=== PATIENT | female | born 1935 | race Caucasian/White ===

== ENCOUNTER 2022-10-19 12:46 | Outpatient (OUT) | payer MEDICARE, SELFPAY ==
--- NOTE | 2022-10-19 13:08 | PM.CN ---
Consult Note: HPI Data of Consult Patient: known to practice within the last 3 years Consult date: 10/19/22 Requesting Physician: MARLINE PRADO NP Primary Care Provider: Milvia Haas Consult Narrative Reason for consult: low back pain Narrative: Izabela is here for f/u of right LCIH injection done 09/26/22. She recieved 100% relief of pain with increased function for several hours after procedure. She would not like to proceed with the RFA of same area at this time. Questions answered regarding RFA procedure. She would like to think about the procedure. No new sensorimotor or bowel or bladder issues. No radicular sx. cc:: CC: MARLINE PRADO NP Review of Systems ROS Status of ROS 10 or more systems reviewed and unremarkable except as noted in history and below Meds Home Medications and Allergies Allergies Allergy/AdvReac Type Severity Reaction Status Date / Time Penicillins Allergy Mild Hives Verified 10/19/22 13:17 Exam Constitutional: Common normals: no apparent distress, average body habitus, oriented x3, no limitations, healthy appearing, alert and well nourished General appearance: cooperative, comfortable and well developed Orientation/consciousness: Yes awake, Yes oriented to person, Yes oriented to place and Yes oriented to time HENMT: Common normals: normocephalic and head/scalp atraumatic Nose: external nose normal Mouth: oral and palatal mucosa normal Respiratory: Common normals: normal respiratory effort, no retractions and no use of accessory muscles Effort & inspection: able to speak in complete sentences Back & Pelvis: Lumbar spine/lower back: normal to inspection, pain with ROM, paraspinal muscle tenderness, straight leg raise negative bilaterally and other soft tissue findings (positive mao right, positive thigh thrust right) Other lumbar soft tissue findings laterality: right Skin: Common normals: no rashes or lesions noted Assessment and Plan Assessment and Plan (1) Neuritis: (2) Muscle spasm: Plan oxycodone refill. She has narcan at home. She may call to schedule right LCIH RFA
== END 2022-10-19 12:47 ==
PROVIDERS: PCP Nurse Practitioner; Visit Provider Nurse Practitioner
DX: M79.2 Neuralgia and neuritis, unspecified (principal); M62.838 Other muscle spasm
CPT/HCPCS: G0463

== ENCOUNTER 2022-12-01 11:47 | Outpatient (OUT) | payer MEDICARE, SELFPAY ==
--- NOTE | 2022-12-01 12:09 | PM.CN ---
Consult Note: HPI Data of Consult Patient: known to practice within the last 3 years Consult date: 12/01/22 Requesting Physician: MARLINE PRADO NP Primary Care Provider: Milvia Haas Consult Narrative Narrative: Patient is here for f/u of low back pain . Hx of LCIH nerve block with significant relief. She cancelled RFA procedure. She states she does not want to go through with RFA at this time. Pain today is lower back worse with standing, ROM . No radiculopathy. No new sensorimotor or bowel or bladder issues. No adverse medication SE. Medication regimen assists patient with being better able to complete ADLs. cc:: CC: MARLINE PRADO NP Review of Systems ROS Status of ROS 10 or more systems reviewed and unremarkable except as noted in history and below Musculoskeletal Reports: back pain Meds Home Medications and Allergies Home Medications Medication Instructions Recorded Confirmed Type alendronate 70 mg tablet 70 mg PO QWEEK 10/19/22 10/19/22 History baclofen 10 mg tablet 10 mg PO QDAY 10/19/22 10/19/22 History calcium carbonate 500 mg calcium 500 mg PO QDAY 10/19/22 10/19/22 History (1,250 mg) chewable tablet cyanocobalamin (vitamin B-12) 1,000 mcg PO QDAY 10/19/22 10/19/22 History 1,000 mcg capsule gabapentin 300 mg capsule 300 mg PO BID 10/19/22 10/19/22 History levothyroxine 50 mcg tablet 50 mcg PO QDAY 10/19/22 10/19/22 History multivitamin 1 tab PO QDAY 10/19/22 10/19/22 History omeprazole 40 mg capsule,delayed 40 mg PO QDAY 10/19/22 10/19/22 History release oxycodone 5 mg tablet 5 mg PO TID 10/19/22 10/19/22 History pravastatin 20 mg tablet 20 mg PO QDAY 10/19/22 10/19/22 History Allergies Allergy/AdvReac Type Severity Reaction Status Date / Time Penicillins Allergy Mild Hives Verified 10/19/22 13:17 Exam Constitutional Documenting provider has reviewed patient's vital signs: yes Common normals: no apparent distress, average body habitus and oriented x3 General appearance: cooperative, comfortable, well developed and frail appearing Orientation/consciousness: Yes awake, Yes oriented to person, Yes oriented to place and Yes oriented to time HENMT Common normals: normocephalic and moist oral mucous membranes Respiratory Common normals: normal respiratory effort, no retractions and no use of accessory muscles Effort & inspection: able to speak in complete sentences and symmetric chest movement Back & Pelvis Common normals: straight leg raise negative bilaterally Lumbar spine/lower back: ROM limited, pain with ROM, paraspinal muscle tenderness, paraspinal muscle spasm and lumbar scoliosis present Other: kyphosis muscle strength 4/5 bilat with intact sensation bilat LE positive facet loading Assessment and Plan Assessment and Plan (1) Muscle spasm: (2) Neuritis: (3) Lumbar spondylosis: Plan refill oxycodone f/u 3 months
== END 2022-12-01 11:48 | disposition home or self-care (01) ==
LOC: PM 11:49
PROVIDERS: PCP Nurse Practitioner; Visit Provider Nurse Practitioner
DX: M62.838 Other muscle spasm (principal); M79.2 Neuralgia and neuritis, unspecified; M47.816 Spondylosis without myelopathy or radiculopathy, lumbar region
CPT/HCPCS: G0463

== ENCOUNTER 2023-03-08 10:47 | Outpatient (OUT) | payer MEDICARE, SELFPAY ==
--- NOTE | 2023-03-08 11:43 | PM.CN ---
Consult Note: HPI Data of Consult Patient: known to practice within the last 3 years Requesting Physician: MARLINE PRADO NP Primary Care Provider: Milvia Haas Consult Narrative Reason for consult: F/u Narrative: Izabela Díaz a 87 year old female presents for evaluation and management of chronic back and bialteral hip pain. Today rating pain 10/10. Patient reports benefit to current medication regimen, she continues to be active as a result of opioid therapy. Denies side effects. cc:: CC: MARLINE PRADO NP Review of Systems ROS Status of ROS 10 or more systems reviewed and unremarkable except as noted in history and below Musculoskeletal Reports: back pain Meds Home Medications and Allergies Home Medications Medication Instructions Recorded Confirmed Type alendronate 70 mg tablet 70 mg PO QWEEK 10/19/22 10/19/22 History baclofen 10 mg tablet 10 mg PO QDAY 10/19/22 10/19/22 History calcium carbonate 500 mg calcium 500 mg PO QDAY 10/19/22 10/19/22 History (1,250 mg) chewable tablet cyanocobalamin (vitamin B-12) 1,000 mcg PO QDAY 10/19/22 10/19/22 History 1,000 mcg capsule gabapentin 300 mg capsule 300 mg PO BID 10/19/22 10/19/22 History levothyroxine 50 mcg tablet 50 mcg PO QDAY 10/19/22 10/19/22 History multivitamin 1 tab PO QDAY 10/19/22 10/19/22 History omeprazole 40 mg capsule,delayed 40 mg PO QDAY 10/19/22 10/19/22 History release oxycodone 5 mg tablet 5 mg PO TID 10/19/22 10/19/22 History pravastatin 20 mg tablet 20 mg PO QDAY 10/19/22 10/19/22 History oxycodone 5 mg tablet 5 mg PO TID PRN pain #90 tabs 01/17/23 Rx oxycodone 5 mg capsule 5 mg PO TID PRN pain #90 caps 03/08/23 Rx Allergies Allergy/AdvReac Type Severity Reaction Status Date / Time Penicillins Allergy Mild Hives Verified 10/19/22 13:17 Exam Constitutional Documenting provider has reviewed patient's vital signs: yes (BP elevated without symptoms) Common normals: no apparent distress, oriented x3, healthy appearing, alert and well nourished General appearance: cooperative HENMT Common normals: normocephalic, hearing grossly normal bilaterally and moist oral mucous membranes Head and scalp: normocephalic Eye Common normals: PERRL Pupil: PERRL Neck & C-Spine Common normals: full ROM General: normal visual inspection Chest Common normals: inspection of chest normal Respiratory Common normals: normal respiratory effort, no retractions and no use of accessory muscles Back & Pelvis Thoracic spine/upper back: ROM limited, pain with ROM and kyphosis present Lumbar spine/lower back: ROM limited and pain with ROM Extremity Common normals: normal to inspection and full ROM Neuro Common normals: oriented x3, CN's II-XII intact bilaterally, moves all extremities, no focal motor deficits, no sensory deficits noted and deep tendon reflexes 2+ bilaterally Sensorium/orientation: alert Gait (neuro): antalgic Motor exam: strength 5/5 throughout and no movement abnormalities noted Psych Common normals: mental status grossly normal, thought process normal, cooperative, affect normal, speech normal and activity/motor behavior normal Speech: normal speech Thought process: normal thought process Results Additional Findings Additional findings: I have checked an [facility] report on this patient today and there are no aberrancies noted in the prescribing history.?? A drug screen was completed and reviewed within the last year, and if there has not been a drug screen completed we ordered one today to monitor higher risk, state monitored pain medication use. As part of providing excellent, safe, comprehensive care, the following was completed at our patient's visit: 1. A medication reconciliation and review to ensure accurate knowledge of current/active medications, including asking our patients to inform us about any [id number] medications or herbal remedies/nutritional supplements/alternative remedies. 2. A review to specifically ensure our patients have had annual screening for: elevated body mass index (BMI), tobacco use, screening for depression, and screening for unhealthy alcohol use. When screening is concerning, patients are provided with education and the specific recommendation to discuss the concerning health issue and treatment options with their primary care provider. Assessment and Plan Assessment and Plan (1) Lumbar spondylosis: (2) Low back pain: (3) Degenerative disc disease: (4) Muscle spasm: (5) Chronic prescription opiate use: Assessment and Plan: I feel these medications are improving the patient's quality of life and allow them to tolerate activities of daily living as well as participate in recreational activity.? The patient does not report intolerable side effects. The patient is NOT opioid naive and non-pharmacologic and non-opioid treatment has failed to significantly relieve the patient's pain and improve functionality. The patient has a diagnosis that is related to a somatic or visceral pain etiology. ? ?? I reviewed with the patient the potential risks and side effects with the use of? opioid medications including but not limited to respiratory depression,? sedation, and even . I verified the patient has access to naloxone should? these effects occur. I advised the patient to avoid the use of any other? sedation substances including alcohol, THC, and benzodiazepines while? taking opioid medications due to the risk of compounding side effects and? detrimental outcomes. I reviewed the HUMAN RESOURCES BENEFITS MANAGER, pain treatment agreement, urine? drug screen, and opioid start talking forms. The patient was advised to let? their family know they had Naloxone in case they would need to administer? the medication.? ?? Plan declining additional injection therapy increase oxycodone 5 to TID-QID PRN 105 tablets per month UDS updated today narcan previously discussed and declined, pt educated on discussed bracing, zynex lumbosacral orthotic brace ordered for chronic low back pain and degenerative disc disease f/u 1 month to evaluate medication changes and bracing
== END 2023-03-08 10:48 | disposition home or self-care (01) ==
PROVIDERS: PCP Nurse Practitioner; Visit Provider Nurse Practitioner
DX: M47.896 Other spondylosis, lumbar region (principal); M54.50 Low back pain, unspecified; M51.36 Other intervertebral disc degeneration, lumbar region; R25.2 Cramp and spasm
CPT/HCPCS: G0463

== ENCOUNTER 2023-04-05 11:10 | Outpatient (OUT) | payer MEDICARE, SELFPAY ==
--- NOTE | 2023-04-05 11:27 | P.CN_ITS ---
Consult Note: HPI Data of Consult Patient: known to practice within the last 3 years Requesting Physician: Pau Salazar NP Primary Care Provider: Milvia Haas Consult Narrative Reason for consult: f/u Narrative: Izabela Díaz a pleasant 87 year old female presents for evalaution and management of chronic back pain. Today pain 10/28. Patient received zynex brace and would like to review how to use it. cc:: CC: Pau Salazar NP Review of Systems ROS Status of ROS 10 or more systems reviewed and unremarkable except as noted in history and below Musculoskeletal Reports: back pain Meds Home Medications and Allergies Home Medications Medication Instructions Recorded Confirmed Type alendronate 70 mg tablet 70 mg PO QWEEK 10/19/22 10/19/22 History baclofen 10 mg tablet 10 mg PO QDAY 10/19/22 10/19/22 History calcium carbonate 500 mg calcium 500 mg PO QDAY 10/19/22 10/19/22 History (1,250 mg) chewable tablet cyanocobalamin (vitamin B-12) 1,000 mcg PO QDAY 10/19/22 10/19/22 History 1,000 mcg capsule gabapentin 300 mg capsule 300 mg PO BID 10/19/22 10/19/22 History levothyroxine 50 mcg tablet 50 mcg PO QDAY 10/19/22 10/19/22 History multivitamin 1 tab PO QDAY 10/19/22 10/19/22 History omeprazole 40 mg capsule,delayed 40 mg PO QDAY 10/19/22 10/19/22 History release oxycodone 5 mg tablet 5 mg PO TID 10/19/22 10/19/22 History pravastatin 20 mg tablet 20 mg PO QDAY 10/19/22 10/19/22 History oxycodone 5 mg tablet 5 mg PO TID PRN pain #90 tabs 01/17/23 Rx baclofen 10 mg tablet 10 mg PO DAILY #30 tabs 03/08/23 Rx oxycodone 5 mg capsule 5 mg PO QID PRN pain #105 caps 03/08/23 Rx oxycodone 5 mg capsule 5 mg PO TID PRN pain #90 caps 03/08/23 Rx Allergies Allergy/AdvReac Type Severity Reaction Status Date / Time Penicillins Allergy Mild Hives Verified 10/19/22 13:17 Exam Constitutional Documenting provider has reviewed patient's vital signs: yes (BP elevated without symptoms) Common normals: no apparent distress, oriented x3, healthy appearing, alert and well nourished General appearance: cooperative HENMT Common normals: normocephalic, hearing grossly normal bilaterally and moist oral mucous membranes Head and scalp: normocephalic Eye Common normals: PERRL Pupil: PERRL Neck & C-Spine Common normals: full ROM General: normal visual inspection Chest Common normals: inspection of chest normal Respiratory Common normals: normal respiratory effort, no retractions and no use of accessory muscles Back & Pelvis Thoracic spine/upper back: ROM limited, pain with ROM and kyphosis present Lumbar spine/lower back: ROM limited and pain with ROM Extremity Common normals: normal to inspection and full ROM Neuro Common normals: oriented x3, CN's II-XII intact bilaterally, moves all extremities, no focal motor deficits, no sensory deficits noted and deep tendon reflexes 2+ bilaterally Sensorium/orientation: alert Gait (neuro): antalgic Motor exam: strength 5/5 throughout and no movement abnormalities noted Psych Common normals: mental status grossly normal, thought process normal, cooperative, affect normal, speech normal and activity/motor behavior normal Speech: normal speech Thought process: normal thought process Assessment and Plan Assessment and Plan (1) Lumbar spondylosis: (2) Low back pain: (3) Degenerative disc disease: (4) Muscle spasm: (5) Chronic prescription opiate use: Assessment and Plan: I feel these medications are improving the patient's quality of life and allow them to tolerate activities of daily living as well as participate in recreational activity.? The patient does not report intolerable side effects. The patient is NOT opioid naive and non-pharmacologic and non-opioid treatment has failed to significantly relieve the patient's pain and improve functionality. The patient has a diagnosis that is related to a somatic or visceral pain etiology. ? ?? I reviewed with the patient the potential risks and side effects with the use of? opioid medications including but not limited to respiratory depression,? sedation, and even . I verified the patient has access to naloxone should? these effects occur. I advised the patient to avoid the use of any other? sedation substances including alcohol, THC, and benzodiazepines while? taking opioid medications due to the risk of compounding side effects and? detrimental outcomes. I reviewed the INDUSTRIAL RENDERER, pain treatment agreement, urine? drug screen, and opioid start talking forms. The patient was advised to let? their family know they had Naloxone in case they would need to administer? the medication.? ?? Plan declining additional injection therapy continue oxycodone 5 to TID-QID PRN 105 tablets per month UDS reviewed and appropriate narcan previously discussed and declined, pt educated on continue bracing f/u 3 months for medication management
== END 2023-04-05 11:11 | disposition home or self-care (01) ==
LOC: PM 11:10
PROVIDERS: PCP Nurse Practitioner; Visit Provider Nurse Practitioner
DX: M47.816 Spondylosis without myelopathy or radiculopathy, lumbar region (principal); M54.50 Low back pain, unspecified; M51.36 Other intervertebral disc degeneration, lumbar region; M62.838 Other muscle spasm; Z79.891 Long term (current) use of opiate analgesic
CPT/HCPCS: G0463

== ENCOUNTER 2023-07-05 11:33 | Outpatient (OUT) | payer MEDICARE, SELFPAY ==
--- OUTSIDE RECORDS SUMMARY | 2023-07-05 11:41 | XMS_ITS | CCD ---
Author Name Unknown Address [address] [place] [address] Organization [facility] Care Team Providers Care Director Of Medical Review Name Role Phone Mohsen Jones Primary Care Provider [phone] SELMA MIRANDA Referring Unavailable MOHSEN JONES Primary Care Unavailabl e LUCYEREMOHSEN Faith Primary Care Unavailabl e CARIDAD PRINGLE Attending Unavailable MENENDEZ, COLE Attending Unavailable MENENDEZCOLE Admitting Unavailable CARIDAD PRINGLE Referring Unavailable MOHSEN JONES Primary Care Unavailabl e HETAL, ABED E Consulting Unavailable MOHSEN JONES Primary Care Unavailabl e HETAL, ABED E Attending Unavailable HETAL, ABED E Admitting Unavailable Jewel Rodriguez Unavailable NON STAFF Primary Care Provider Unavailabl e DO Jewel Rodriguez A Attending Provider [phone] NON STAFF Primary Care Provider Unavailabl e DO Jewel Rodriguez A Attending Provider Jewel Rodriguez A Admitting Unavailable NON STAFF Primary Care Unavailable Harley Rodriguezin A Attending Unavailable Harley Rodriguezin A Attending Unavailable NON STAFF Primary Care Unavailable Jennifer Jewel A Admitting Unavailable Jennifer Jewel A Attending Unavailable NON STAFF Primary Care Unavailable Jennifer Jewel A Admitting Unavailable Harley Rodriguezin A Attending Unavailable Harley Rodriguezin A Admitting Unavailable NON STAFF Primary Care Unavailable Jeaneth Crowe Consulting Unavailable Stanislav Mathews Admitting Unavailable Deep Smith Attending Unavailable Harley Rodriguezin A Admitting Unavailable NON STAFF Primary Care Unavailable Jewel Rodriguez A Attending Unavailable DR TAM CORREA Attending Unavailable DR TAM CORREA Admitting Unavailable FUENTES ., TYLER Consulting Unavailable [facility], SURGERY MANAGER [place] Primary Care Unavailable [facility], [facility] [place] Primary Care Unavailable LAKSHMIPATHY ., NARENDRANATH Attending Lelo vailable LAKSHMIPATHY ., NARENDRANATH Consulting Lelo vailable LAKSHMIPATHY ., NARENDRANATH Admitting Lelo vailable [facility], [facility] [place] Primary Care Unavailable HAYLEY ., DR TAM Candelaria Attending Unavailable FUENTES ., TYLER Consulting Unavailable PERDOMO ., DR TAM Candelaria Admitting Unavailable HALKER ., MARLINE Consulting Unavailable PERDOMO ., DR TAM Candelaria Attending Unavailable PERDOMO ., DR TAM Candelaria Consulting Unavailable [facility], [facility] [place] Primary Care Unavailable PERDOMO ., DR TAM Candelaria Admitting Unavailable FUENTES ., TYLER Consulting Unavailable PERDOMO ., DR TAM Candelaria Attending Unavailable PERDOMO ., DR TAM Candelaria Admitting Unavailable FUENTES ., TYLER Consulting Unavailable [facility], [facility] Primary Care Unavailable [facility], [facility] Attending Unavailable [facility] SHOP COOPER, [place] Unavailable Darrius KENNEDY, Mohsen Primary Care Provider [phone] Allergies Allergy Classification Reported Allergen(s) Allergy Type Date of Onset Reaction(s) Facility (7 sources) Penicillins Propensity to adverse reactions to drug 0 [place], [place] (5 sources) penicillAMINE Drug Allergy [facility] Tang Song Other (1 source) Penicillins Drug allergy (disorder) 2 [facility] (1 source) Penicillins Drug allergy (disorder) 3 [facility] (2 sources) Acetaminophen Drug Allergy 4 [facility] Healthcare (2 sources) oxyCODONE Drug Allergy 4 Unknown [facility] Healthcare Work Phone: (2 sources) Penicillins Propensity to adverse reactions 4 [facility] Healthcare Medications Current Medications Medication Drug Class(es) Dates Sig (Normalized) Sig (Original) acetaminophen 500 mg oral tablet (4 sources) Start: 09-27-2021 take 2 tablets by mouth every eight hours Acetaminophen (Tylenol Extra Strength) 500 mg tablet Active 1000 MG PO Every 8 hours 180 30 September 262 11:00pm Start: 03-23-2020 take 650 mg by mouth every eight hours as needed for pain, then take 4000 mg by mouth every twenty-four hours as needed for pain 650 mg, Oral, EVERY 8 HOURS PRN, Pain Mild (1-3), Starting Sun03/23/20 at 1927 Maximum dose of acetaminophen is 4000 mg from all sources in 24 hours. Start: 02-27-2020 acetaminophen (TYLENOL) tablet 650 mg acetaminophen 325 mg / HYDROcodone bitartrate 5 mg oral tablet (3 sources) Opioid Agonist Start: 03-23-2020 End: 03-26-2020 take 1 tablet by mouth every six hours as needed for pain 1 tablet, Oral, EVERY 6 HOURS PRN, Pain Moderate (4-6), Pain Severe (7-10), Starting Sun03/23/20 at 1927 Maximum dose of acetaminophen is 4000 mg from all sources in 24 hours. 200 actuat albuterol 0.09 mg/actuat metered dose inhaler (6 sources) beta2-Adrenerg ic Agonist Start: 03-23-2020 take 2 puff(s) by inhalation every six hours as needed 2 puff, Inhalation, EVERY 6 HOURS PRN, Wheezing, Starting Sun03/23/20 at 1927 This is an Observation patient. Please see if the patient can bring their home supply. Please send down to pharmacy for identification. take 2 puff(s) by in halation every four hours for wheezing albuterol HFA 90 mcg/act inhaler Inhale 2 puffs every 4 (four) hours if needed for wheezing 0 Active alendronic acid 70 mg oral tablet (14 sources) Bisphosphonate Start: 06-11-2023 End: 07-09-2023 take 1 tablet by mouth in the morning alendronate (Fosamax) 70 MG tablet Indications: Age related osteoporosis, unspecified pathological fracture presence (CMS/HCC) Take 1 tablet (70 mg) by mouth every 7 (seven) days for 28 days Take in the morning with a full glass of water, on an empty stomach, and do not take anything else by mouth or lie down for the next 30 min.Take 70 mg by mouth every 7 (seven) days Take in the morning with a fu 4 tablet 0 06/11/2023 07/09/2023 Active Start: 09-26-2021 take 70 mg by mouth every week Alendronate Active 70 MG PO every week September 25, 2021 11:00pm Fosamax 40 MG as directed Orally Active alendronate (FOS AMAX) 70 MG tablet Take 70 mg by mouth every 7 days 0 Active amitriptyline hydrochloride 25 mg oral tablet (9 sources) Tricyclic Antidepressant Start: 07-02-2023 End: 09-30-2023 take 1 tablet by mouth at bedtime amitriptyline (Elavil) 25 MG tablet Indications: Other chronic pain Take 1 tablet (25 mg) by mouth at bedtime 90 tablet 1 07/02/2023 09/30/2023 Active Start: 09-26-2021 End: 07-02-2023 take 25 mg by mouth once daily at bedtime Amitriptyline Active 25 MG PO Daily at bedtime September 25, 2021 11:00pm Start: 03-23-2020 take 25 mg by mouth once daily 25 mg, Oral, NIGHTLY, First dose on Sun03/23/20 at 2100 This is an Observation patient. Please see if the patient can bring their home supply. Please send down to pharmacy for identification. ascorbic acid 60 mg / beta carotene 5000 unt / copper sulfate 40 mg / dl-alpha tocopheryl acetate 30 unt / sodium selenite 0.04 mg / zinc oxide 40 mg oral tablet (3 sources) Vitamin C take 1 tablet by mouth once daily Multiple Vitamins-Minerals (MULTIVITAMIN ADULT) TABS Take 1 tablet by mouth daily 0 Active b complex vitamins capsule (5 sources) take 1 capsule by mouth once daily b complex vitamins capsule Take 1 capsule by mouth daily 0 Suspended take 1 capsule by mouth once shravan ly b complex vitamins capsule Take 1 capsule by mouth daily 0 Active baclofen 10 mg oral tablet (10 sources) gamma-Aminobutyric Acid-ergic Agonist Start: 03-23-2020 take 10 mg by mouth once daily at bedtime Baclofen Active 10 MG PO Daily at bedtime September 25, 2021 11:00pm calcium carbonate 1500 mg oral tablet (5 sources) take 1 tablet by mouth once daily calcium carbonate 600 MG TABS tablet Take 1 tablet by mouth daily 0 Active 0.4 ml enoxaparin sodium 100 mg/ml prefilled syringe (1 source) Low Molecular Weight Heparin Start: 02-27-2020 enoxaparin (LOVENOX) injection 40 mg gabapentin 300 mg oral capsule (10 sources) Anti-epileptic Agent Start: 06-01-2023 End: 07-01-2023 take 1 capsule by mouth in the morning gabapentin (Neurontin) 300 MG capsule Indications: chronic pain Take 1 capsule (300 mg) by mouth in the morning and 1 capsule (300 mg) before bedtime. 60 capsule 0 06/01/2023 Active Start: 09-26-2021 take 300 mg by mouth twice shravan ly Gabapentin Active 300 MG PO Twice daily September 25, 2021 11:00pm Start: 03-23-2020 take 300 mg by mouth once sidra y 300 mg, Oral, NIGHTLY, First dose on Sun03/23/20 at 2100 This is an Observation patient. Please see if the patient can bring their home supply. Please send down to pharmacy for identification. take 1 capsule by [facility] twice daily gabapentin (NEURONTIN) 300 MG capsule Take 300 mg by mouth 2 times daily. 0 Active levothyroxine sodium 0.05 mg oral tablet (16 sources) l-Thyroxine Start: 06-08-2023 End: 07-08-2023 take 1 tablet by mouth in the morning levothyroxine (Synthroid, Levoxyl) 50 MCG tablet Indications: Hypothyroidism (acquired) (CMS/HCC) Take 1 tablet (50 mcg) by mouth in the morning. 30 tablet 0 06/08/2023 07/08/2023 Active Start: 09-26-2021 take 50 ug by mouth once daily Levothyroxine Active 50 MCG PO Daily September 25, 2021 11:00pm Start: 02-27-2020 take 50 ug by mouth once daily 50 mcg, Oral, DAILY, First dose on Sun03/24/20 at 0700 Tube feeding (TF) interaction, obtain physician order to manage, recommend holding TF for 30 minutes before and after dose.This is an Observation patient. Please see if the patient can bring their home supply. Please send down to pharmacy for identification. Synthroid Active loratadine 10 mg oral tablet (8 sources) Start: 03-23-2020 take 10 mg by mouth once daily Loratadine Active 10 MG PO Daily September 25, 2021 11:00pm 100 ml magnesium sulfate 10 mg/ml injection (1 source) Start: 02-27-2020 magnesium sulf ate 1 g in dextrose 5% 100 mL IVPB meloxicam 15 mg oral tablet (11 sources) Nonsteroidal Anti-inflammatory Drug Start: 09-26-2021 take 15 mg by mouth once daily Meloxicam Active 15 MG PO Daily September 25, 2021 11:00pm Start: 03-23-2020 take 15 mg by mouth once daily 15 mg, Oral, DAILY, First dose on Sun03/23/20 at 1945 This is an Observation patient. Please see if the patient can bring their home supply. Please send down to pharmacy for identification. Meloxicam Active take 1 tablet by savanna once daily meloxicam (MOBIC) 15 MG tablet Take 1 tablet by mouth daily 0 Active Meloxicam 15 MG TBDP (2 sources) Meloxicam 15 MG TBDP Take by mouth 3 times daily 0 Active Misc. Devices (SITZ BATH) MISC (2 sources) Start: 03-23-20 End: 03-28-20 take 1 [IU] rectal route twice daily Misc. Devices (SITZ BATH) MISC Place 1 Units rectally 2 times daily for 5 days 10 each 1 03/23/2020 03/28/2020 Active 1 ml morphine sulfate 4 mg/ml injection (1 source) Opioid Agonist Start: 02-27-20 morphine sulfate (PF) injection 4 mg Multiple Vitamins-Minerals (MULTIVITAMIN ADULT PO) (2 sources) Multiple Vitamins-Minerals (MULTIVITAMIN ADULT PO) Take by mouth 0 Active 24 hr nicotine 0.875 mg/hr transdermal system (1 source) Cholinergic Nicotinic Agonist Start: 02-27-20 nicotine (NICODERM CQ) 21 MG/24HR 1 patch omeprazole 40 mg delayed release oral capsule (7 sources) Proton Pump Inhibitor Start: 05-10-20 End: 08-08-19 24 take 1 capsule by mouth in the morning omeprazole (PriLOSEC) [address] capsule Indications: Gastroesophageal reflux disease without esophagitis Take 1 capsule (40 mg) by mouth in the morning. 90 capsule 0 05/10/2023 08/08/2023 Active Start: 09-26-2021 take 40 mg by mouth once daily Omeprazole Active 40 MG PO Daily September 25, 2021 11:00pm End: 02-27-2020 take 1 capsule by mouth once daily omeprazole (PRILOSEC) 40 MG delayed release capsule Take 40 mg by mouth daily 0 02/27/2020 Discontinued (Alternate therapy) ondansetron (ZOFRAN-ODT) disintegrating tablet 4 mg (1 source) Start: 03-23-2020 ondansetron (ZOFRAN-ODT) disintegrating tablet 4 mg oxyCODONE hydrochloride 5 mg oral tablet (12 sources) Opioid Agonist Start: 09-27-2021 take 1 tablet by mouth every six hours Oxycodone (Roxicodone) 5 mg tablet Active 5 MG PO Q6H 30 7 September 27, 2021 Start: 09-26-2021 End: 09-30-2021 take 50 mg by mouth three times daily Oxycodone Discontinued 50 MG PO Three times daily September 25, 2021 11:00pm September 30, 2021 1:37pm End: 02-28-2020 take 1 tablet by mouth twice daily as needed for pain oxyCODONE (ROXICODONE) 5 MG immediate release tablet Take 5 mg by mouth 2 times daily as needed for Pain. 0 02/28/2020 Discontinued (Stop Taking at Discharge) take 1 capsule by mo uth three times daily oxyCODONE 5 MG capsule Take 5 mg by mouth 3 times daily. 0 Active pantoprazole 40 mg delayed release oral tablet (5 sources) Proton Pump Inhibitor Start: 02-28-2020 take 40 mg by mouth once daily 40 mg, Oral, DAILY, First dose on Sun03/23/20 at 1945 Do not crush or break.This is an Observation patient. Please see if the patient can bring their home supply. Please send down to pharmacy for identification. Potassium Chloride (1 source) Start: 02-27-2020 potassium chloride (KLOR-CON M) extended release tablet 40 mEq pravastatin sodium 40 mg oral tablet (11 sources) HMG-CoA Reductase Inhibitor Start: 05-01-2023 End: 07-30-2023 take 1 tablet by mouth at bedtime pravastatin (Pravachol) 40 MG tablet Indications: Hyperlipidemia Take 1 tablet (40 mg) by mouth at bedtime 90 tablet 0 05/01/2023 07/30/2023 Active Start: 09-26-2021 take 40 mg by mouth once daily Pravastatin Active 40 MG PO Daily September 25, 2021 11:00pm Start: 02-27-2020 take 40 mg by mouth once daily 40 mg, Oral, NIGHTLY, First dose on Sun03/23/20 at 2100 This is an Observation patient. Please see if the patient can bring their home supply. Please send down to pharmacy for identification. take 1 tablet by savanna th once daily pravastatin (PRAVACHOL) 20 MG tablet Take 20 mg by mouth nightly 0 Active Promethazine (1 source) Phenothiazine Start: 02-27-2020 promethazine ( PHENERGAN) tablet 12.5 mg 3 ml sodium chloride 9 mg/ml injection (8 sources) Start: 03-23-2020 10 mL, Intrave nous, EVERY 12 HOURS SCHEDULED (2 times per day), First dose on Sun03/23/20 at 2100 Start: 03-23-2020 take 10 mL intraveno us route once as needed 10 mL, Intravenous, PRN, Line Care, After every IV line use, Starting Sun03/23/20 at 1927 Start: 02-27-2020 sodium chlorid e flush 0.9 % injection 10 mL Start: 02-27-2020 End: 02-27-2020 0.9 % sodium chloride bolus vitamin b12 1 mg oral tablet (7 sources) Vitamin B12 take 1 tablet by mouth in the morning cyanocobalamin (Vitamin B-12) 1000 MCG tablet Take 1,000 mcg by mouth in the morning. 0 Active Completed/Discontinued Medications Medication Drug Class(es) Dates Sig (Normalized) Sig (Original) 500 ml glucose 50 mg/ml / potassium chloride 0.02 meq/ml / sodium chloride 4.5 mg/ml injection (1 source) Start: 02-27-2020 End: 02-28-2020 dextrose 5 % and 0.45 % NaCl with KCl 20 mEq infusion 1 ml HYDROmorphone hydrochloride 2 mg/ml cartridge (1 source) Opioid Agonist Start: 03-23-2020 End: 03-23-2020 HYDROmorphone (DILAUDID) injection 0.5 mg ioversol (OPTIRAY) 74 % injection 75 mL (2 sources) Start: 02-27-2020 End: 02-27-2020 ioversol (OPTIRAY) 74 % injection 75 mL polyethylene glycol 3350 07896 mg powder for oral solution (1 source) Osmotic Laxative Start: 02-27-2020 End: 02-27-2020 polyethylene glycol (GLYCOLAX) powder 238 g Problems Active Problems Problem Classification Problem Date Documented Da te Episodic/Chronic Abdominal hernia (2 sources) Hiatal hernia; Translations: [Diaphragmatic hernia without obstruction or gangrene] Onset: 4 06-18-2023 Episodic Allergic reactions (2 sources) Allergic condition; Translations: [Allergy, unspecified, initial encounter] Onset: 4 06-28-2023 Episodic Asthma (2 sources) Reactive airway disease; Translations: [Unspecified asthma, uncomplicated] Onset: 4 06-28-2023 Chronic Cancer of ovary (2 sources) Malignant tumor of ovary; 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] Onset: 8 06-28-2023 Chronic Cataract (2 sources) Cataract; Translations: [Unspecified cataract] Onset: 4 06-28-2023 Chronic Conditions associated with dizziness or vertigo (7 sources) Dizziness and giddiness; Translations: [Dizziness] Onset: 2 Resolved: 2 Episodic Disorders of lipid metabolism (4 sources) Mixed hyperlipidemia; Translations: [Mixed hyperlipidemia] Onset: 3 Resolved: 4 04-30-2023 Chronic Esophageal disorders (2 sources) Gastroesophageal reflux disease without esophagitis; Translations: [Gastro-esophageal reflux disease without esophagitis] Onset: 3 04-30-2023 Chronic Fracture of upper limb (7 sources) Displaced comminuted fracture of shaft of humerus, right arm, initial encounter for closed fracture; Translations: [Displaced comminuted fracture of shaft of humerus, right arm, subsequent encounter for fracture with routine healing] Onset: 2 Resolved: 2 Episodic Headache; including migraine (2 sources) Chronic headache disorder; Translations: [Chronic headaches] Onset: 4 06-28-2023 Episodic Intestinal obstruction without hernia (4 sources) Fecal impaction; Translations: [Fecal impaction (HCC)] Onset: 0 02-27-2020 Episodic Osteoarthritis (2 sources) Osteoarthritis; Translations: [Unspecified osteoarthritis, unspecified site] Onset: 4 06-28-2023 Chronic Osteoporosis (2 sources) Osteoporosis; Translations: [Age-related osteoporosis without current pathological fracture] Onset: 4 06-11-2023 Chronic Other acquired deformities (1 source) Unspecified kyphosis, site unspecified; Translations: [UNS KYPHOSIS SITE UNSPECIFIED] Onset: 2 Chronic Other acquired deformities (2 sources) Kyphosis deformity of spine; Translations: [Unspecified kyphosis, site unspecified] Onset: 4 06-18-2023 Chronic Other aftercare (1 source) intermediate (current) use of opiate analgesic; Translations: [JAIL CURRNT USE OPIATE ANALGES] Onset: 3 Episodic Other and ill-defined heart disease (2 sources) Diastolic dysfunction; Translations: [Other ill-defined heart diseases] Onset: 4 06-28-2023 Chronic Other connective tissue disease (1 source) Other muscle spasm; Translations: [OTHER MUSCLE SPASM] Onset: 3 Episodic Other fractures (5 sources) Closed fracture of acromial end of clavicle; Translations: [Nondisplaced fracture of lateral end of right clavicle, subsequent encounter for fracture with nonunion] Episodic Other fractures (2 sources) Compression fracture of lumbar spine; Translations: [Wedge compression fracture of unspecified lumbar vertebra, initial encounter for closed fracture] Onset: 4 06-28-2023 Episodic Other gastrointestinal disorders (2 sources) Dysphagia; Translations: [Dysphagia, unspecified] Onset: 4 06-28-2023 Episodic Other nervous system disorders (4 sources) Other specified mononeuropathies of right lower limb; Translations: [OTH SPEC MONONEUROPATH RT LOW LIMB] Onset: 3 Chronic Other nervous system disorders (2 sources) Other chronic pain; Translations: [OTHER CHRONIC PAIN] Onset: 3 Chronic Other nervous system disorders (1 source) Other specified mononeuropathies; Translations: [OTHER SPECIFIED MONONEUROPATHIES] Onset: 3 Chronic Other nervous system disorders (5 sources) Chronic pain; Translations: [Other chronic pain] Onset: 4 06-01-2023 Chronic Other nervous system disorders (1 source) Postoperative pain ; Translations: [Post-op pain] Episodic Other non-traumatic joint disorders (5 sources) Pain in left knee Onset: 2 Resolved: 2 Episodic Other non-traumatic joint disorders (2 sources) Hip pain; Translations: [Pain in right hip] Onset: 4 06-28-2023 Episodic Residual codes; unclassified (4 sources) Other specified postprocedural states Onset: 2 Resolved: 2 Episodic Residual codes; unclassified (2 sources) Mild memory disturbance ; Translations: [Other amnesia] Onset: 4 06-28-2023 Episodic Retinal detachments; defects; vascular occlusion; and retinopathy (3 sources) Nonexudative age-related macular degeneration; Translations: [Nonexudative age-related macular degeneration, unspecified eye, stage unspecified] Onset: 4 Resolved: 4 06-28-2023 Chronic Spondylosis; intervertebral disc disorders; other back problems (5 sources) Other intervertebral disc degeneration, lumbar region; Translations: [Spondylosis without myelopathy or radiculopathy, lumbar region] Onset: 2 Chronic Spondylosis; intervertebral disc disorders; other back problems (7 sources) Spinal stenosis, lumbar region without neurogenic claudication; Translations: [Chronic thoracic back pain] Onset: 2 Episodic Thyroid disorders (6 sources) Hypothyroidism; Translations: [Acquired hypothyroidism] Onset: 0 02-27-2020 Chronic Unclassified (1 source) Displaced comminuted fracture of shaft of humerus, right arm, subsequent encounter for fracture with routine healing; Translations: [Displaced comminuted fracture of shaft of humerus, right arm, subsequent encounter for fracture with routine healing] Onset: 2 Unclassified (1 source) S42.351D - Displaced comminuted fracture of shaft of humerus, right arm, subsequent encounter for fracture with routine healing; Translations: [S42.351D - Displaced comminuted fracture of shaft of humerus, right arm, subsequent encounter for fracture with routine healing] Onset: 2 Unclassified (1 source) S42.301A - Unspecified fracture of shaft of humerus, right arm, initial encounter for closed fracture; Translations: [S42.301A - Unspecified fracture of shaft of humerus, right arm, initial encounter for closed fracture] Onset: 2 Unclassified (1 source) M25.562 - Pain in left knee; Translations: [M25.562 - Pain in left knee] Onset: 2 Unclassified (4 sources) LOW BACK PAIN, UNSPECIFIED; Translations: [LOW BACK PAIN, UNSPECIFIED] Onset: 3 Past or Other Problems Problem Classification Problem Date Documented Da te Episodic/Chronic Anal and rectal conditions (7 sources) Rectal prolapse; Translations: [Rectal prolapse] Onset: 02-27-2020 Resolved: 06-28-2023 02-27-2020 Episodic Hemorrhoids (2 sources) Hemorrhoids; Translations: [Unspecified hemorrhoids] Onset: 06-28-2023 Resolved: 06-28-2023 06-28-2023 Episodic Mood disorders (1 source) Mood disorders Onset: 06-28-2023 06-28-2023 Other aftercare (1 source) Encounter for removal of sutures Onset: 10-26-2021 Resolved: 10-26-2021 Episodic Other aftercare (1 source) Other long term care administrator (current) drug therapy; Translations: [OTH MANAGER OF MANUFACTURING CURRENT DRUG THERAPY] Onset: 06-15-2022 Episodic Unclassified (1 source) LOW BACK PAIN, UNSPECIFIED; Translations: [LOW BACK PAIN, UNSPECIFIED] Onset: 09-14-2022 Viral infection (4 sources) Herpes zoster; Translations: [Zoster without complications] Onset: 06-28-2023 Resolved: 06-28-2023 06-28-2023 Episodic Results Test Name Value Interpretation Reference Range Facility XR humerus RT*on 04-05-2022 XR humerus RT* [facility] [place] [address] XRay Report Signed Patient: Izabela Díaz MR#: [id number] 77 : 1935 Acct:[id number] Age/Sex: 86 / F ADM Date: 04/05/22 Loc: [facility] Room: Type: [facility] Attending Dr: Jewel Rodriguez DO Copies to: Jewel Rodriguez DO Ordering Provider: Jewel Rodriguez DO Date of Service: 04/05/22 XR/XR humerus RT*: Closed displaced comminuted fracture of shaft of right humer XR humerus RT* 04/05/2022 11:20 AM SIGNS AND SYMPTOMS: Follow-up fixation of right humeral shaft fracture PROTOCOL: Frontal and lateral radiographs of the right humerus COMPARISON: None FINDINGS: There is lateral plate and screw fixation of a comminuted fracture of the proximal shaft of the humerus without evidence of hardware complication. There is increasing periosteal new bone formation consistent with healing response. Degenerative changes are noted in the right shoulder with evidence of a remote fracture of the lateral aspect of the right clavicle. Remote healed or healing right- sided rib fractures are also partly visualized. XR/XR humerus RT* IMPRESSION: Healing fracture of the proximal humeral shaft without hardware complication or alignment. Healing remains incomplete. Impression dictated by: Minesh Saba M.D.04/05/2022 3:36 PM Dictation Location: [place] [address] Transcribed By: [facility] 04/05/221535 Dictated By: Minesh Saba II, MD 04/05/221534 Signed By: 04/05/221535 [facility] XR humerus RT*on 01-04-2022 XR humerus RT* [facility] [place] [address] XRay Report Signed Patient: Izabela Díaz MR#: [id number] 75 : 1935 Acct:[id number] Age/Sex: 86 / F ADM Date: 01/04/22 Loc: [facility] Room: Type: [facility] Attending Dr: Jewel Rodriguez DO Copies to: Jewel Rodriguez DO Ordering Provider: Jewel Rodriguez DO Date of Service: 01/04/22 XR/XR humerus RT*: Closed displaced comminuted fracture of shaft of right humer 2 viewsRIGHT humerus plain film COMPARISON:11/25/21 HISTORY:Status post ORIF RIGHT humeral shaft fracture No visible healing seen. No hardware failure or loosening identified. Bony alignment adequate. XR/XR humerus RT* IMPRESSION:Stable findings Impression dictated by: Carmelo Longoria M.D.01/04/2022 4:15 PM Dictation Location: [place] [address] Transcribed By: [facility] 01/04/221614 Dictated By: Carmelo Longoria DO 01/04/221611 Signed By: 01/04/221614 [facility] XR humerus RT* [facility] [employer] Other XR humerus RT* [facility] Main [facility] [employer] Other XR humerus RT* [address] [facility] [employer] Other XR humerus RT* [place] [address] No rt [employer] Other XR humerus RT* XRay Report [facility] Other XR humerus RT* Signed [employer] Other XR humerus RT* Patient: Izabela Díaz MR#: [id number] [place] [employer] Other XR humerus RT* 75 [employer] Other XR humerus RT* : 1935 Acct:[id number] [employer] Other XR humerus RT* Age/Sex: 86 / F ADM Date: 01/04/22 [employer] Other XR humerus RT* Loc: [facility] Room: Type: [facility] [employer] Other XR humerus RT* Attending Dr: Jewel Rodriguez DO [employer] Other XR humerus RT* Copies to: Jewel Rodriguez DO [employer] Other XR humerus RT* Ordering Provider: Jewel Rodriguez DO [employer] Other XR humerus RT* Date of Service: 01/04/22 [employer] Other XR humerus RT* XR/XR humerus RT*: Closed displaced comminuted fracture of shaft of right [employer] Other XR humerus RT* humer [employer] Other XR humerus RT* 2 viewsRIGHT humerus plain film [employer] Other XR humerus RT* COMPARISON:11/25/21 [employer] Other XR humerus RT* HISTORY:Status post ORIF RIGHT humeral shaft fracture [employer] Other XR humerus RT* No visible healing seen. [employer] Other XR humerus RT* No hardware failure or loosening identified. Bony alignment adequate. [employer] Other XR humerus RT* XR/XR humerus RT* [employer] Other XR humerus RT* IMPRESSION:Stable findings [employer] Other XR humerus RT* Impression dictated by: Carmelo Longoria M.D.01/04/2022 4:15 PM [employer] Other XR humerus RT* Dictation Location: [place] [address] [employer] Other XR humerus RT* Transcribed By: PWS 01/04/22 [facility] [employer] Other XR humerus RT* Dictated By: Carmelo Longoria DO 01/04/22 [facility] [employer] Other XR humerus RT* Signed By: [employer] Other XR humerus RT* 01/04/22 [facility] [employer] Other XR humerus RT*on 11-23-2021 XR humerus RT* [facility] [place] [address] [place] [address] XRay Report Signed Patient: Izabela Díaz MR#: [id number] 75 : 1935 Acct:[id number] Age/Sex: 86 / F ADM Date: 11/23/21 Loc: [facility]: [facility] Attending Dr: Jewel Rodriguez DO Copies to: Jewel Rodriguez DO Ordering Provider: Jewel Rodriguez DO Date of Service: 11/23/21 XR/XR humerus RT*: Closed displaced comminuted fracture of shaft of right humer 2 viewsRIGHT humerus plain film COMPARISON:10/26/21 HISTORY:ORIF RIGHT humeral shaft fracture Plate and screw fixation of the humerus is intact and in adequate position. Adequate alignment of bony fracture fragments identified. No significant healing seen. Old RIGHT rib fractures. Similar degeneration. XR/XR humerus RT* IMPRESSION:Stable findings Impression dictated by: Carmelo Longoria M.D.11/23/2021 3:28 PM Dictation Location: [place] [address] Transcribed By: [place] 11/23/21 1528 Dictated By: Carmelo Longoria DO 11/23/21 1526 Signed By: 11/23/21 1528 Normal [facility] XR shoulder RT min 2V*on XR shoulder RT min 2V* [facility] [place] [address] [place] [address] XRay Report Signed Patient: Izabela Díaz MR#: [id number] 75 : 1935 Acct:[id number] Age/Sex: 86 / F ADM Date: 10/26/21 Loc: [facility] Room: Type: [facility] Attending Dr: Jewel Rodriguez DO Ordering Provider: Jewel Rodriguez DO Date of Service: 10/26/21 XR/XR shoulder RT min 2V*: Closed displaced comminuted fracture of shaft of right humer Copies to: Jewel Rodriguez DO Right shoulder 10/19/2021. CLINICAL DATA: Follow-up right shoulder fracture repair. FINDINGS: 4 views of the right shoulder were obtained and are compared with a postoperative study 09/27/2021. There is redemonstration of postsurgical changes related to internal fixation of a fracture of the proximal humerus with a plate and screws. The hardware appears intact and unchanged in position. Overall bony alignment appears stable. Skin julianne remain present. There are multiple old right rib fractures. There is also either a remote ununited fracture of the distal clavicle or an os acromiale. XR/XR shoulder RT min 2V* IMPRESSION: Stable postsurgical changes. Impression dictated by: Jose Alejandro Boykin Jr., M.D.10/26/2021 2:19 PM Dictation Location: [facility]--05 Transcribed By: [place] 10/26/21 1419 Dictated By: Jose Alejandro Boykin Jr, MD 10/26/21 1412 Signed By: 10/26/21 1419 Normal [facility] XR shoulder RT min 2V* [facility] [employer] Other XR shoulder RT min 2V* [facility] [employer] Other XR shoulder RT min 2V* [address] [place] [address] [employer] Other XR shoulder RT min 2V* [place] [address] [employer] Other XR shoulder RT min 2V* XRay Report [employer] Other XR shoulder RT min 2V* Signed [employer] Other XR shoulder RT min 2V* Patient: Izabela Díaz MR#: [id number] [employer] Other XR shoulder RT min 2V* 75 [employer] Other XR shoulder RT min 2V* : 1935 Acct:[id number] [employer] Other XR shoulder RT min 2V* Age/Sex: 86 / F ADM Date: 10/26/21 [employer] Other XR shoulder RT min 2V* Loc: [facility] Room: Type: [facility] [employer] Other XR shoulder RT min 2V* Attending Dr: Jewel Rodriguez DO [employer] Other XR shoulder RT min 2V* Ordering Provider: Jewel Rodriguez DO [employer] Other XR shoulder RT min 2V* Date of Service: 10/26/21 [employer] Other XR shoulder RT min 2V* XR/XR shoulder RT min 2V*: Closed displaced comminuted fracture of shaft [employer] Other XR shoulder RT min 2V* of right humer [employer] Other XR shoulder RT min 2V* Copies to: Jewel Rodriguez, [employer] Other XR shoulder RT min 2V* Right shoulder 10/19/2021. [employer] Other XR shoulder RT min 2V* CLINICAL DATA: Follow-up right shoulder fracture repair. [employer] Other XR shoulder RT min 2V* FINDINGS: 4 views of the right shoulder were obtained and are compared with a postoperative study [employer] Other XR shoulder RT min 2V* 09/27/2021. [employer] Other XR shoulder RT min 2V* There is redemonstration of postsurgical changes related to internal fixation of a fracture of the [employer] Other XR shoulder RT min 2V* proximal humerus with a plate and screws. The hardware appears intact and unchanged in position. [employer] Other XR shoulder RT min 2V* Overall bony alignment appears stable. Skin julianne remain present. There are multiple old right rib [employer] Other XR shoulder RT min 2V* fractures. There is also either a remote ununited fracture of the distal clavicle or an os [employer] Other XR shoulder RT min 2V* acromiale. [employer] Other XR shoulder RT min 2V* XR/XR shoulder RT min 2V* [employer] Other XR shoulder RT min 2V* IMPRESSION: Stable postsurgical changes. [employer] Other XR shoulder RT min 2V* Impression dictated by: Jose Alejandro Boykin Jr., M.D.10/26/2021 2:19 PM [employer] Other XR shoulder RT min 2V* Dictation Location: [place] [address] [employer] Other XR shoulder RT min 2V* Transcribed By: PWS 10/26/21 [facility] [employer] Other XR shoulder RT min 2V* Dictated By: Jose Alejandro Boykin Jr, MD 10/26/21 [facility] [employer] Other XR shoulder RT min 2V* Signed By: [employer] Other XR shoulder RT min 2V* 10/26/21 [facility] [employer] Other ABO/Rh Retypeon 09-29-2021 ABO/RH Recheck Result Positive Normal [facility] Comment on above: Result Comment: PERF ORMED BY: [facility] [address] [place] [id number] PATHOLOGIST SOCIAL WORK MANAGER JOESPH ZIEGLER M.D. Basic Metabolic Panelon 09-18 Calcium [Mass/Vol] 8.6 mg/dL Normal 8.2-10.2 [facility] Comment on above: Performed By: #### C BC, BMP ####[place] [address] [place] [address] [facility] Chloride [Moles/Vol] 103 mmol/L Normal 95-114 [facility] Comment on above: Performed By: #### C BC, BMP ####[place] [address] [place] [address] [facility] CO2 [Moles/Vol] 26.1 mmol/L Normal 22.0-30.0 [facility] Comment on above: Performed By: #### C BC, BMP ####[place] [address] [place] [address] [facility] Creatinine [Mass/Vol] 0.68 mg/dL Normal 0.44-1.03 [facility] Comment on above: Performed By: #### C BC, BMP ####[facility] [address] [place] [address] [place] Creatinine Clr Calc Pharmacy 41.04 Normal [facility] Comment on above: Result Comment: PERF ORMED BY: [facility] [address] [place] [address] PATHOLOGIST SOCIAL WORK MANAGER JOESPH ZIEGLER M.D. Performed By: #### C BC, BMP ####[place] [id number] [facility] Estimated GFR ( Dominique > 60 Normal [facility] Comment on above: Result Comment: GFR estimated reference range: According to KDOQI guidelines, <60 ml/min/1.73m2 is sufficient to diagnose a patient with chronic kidney disease. Performed By: #### C BC, BMP ####[place] [id number] [facility] Estimated GFR (Non- Am > 60 Normal [facility] Comment on above: Performed By: #### C BC, BMP ####[place] [id number] [facility] Glucose [Mass/Vol] 101 mg/dL High 70-100 [facility] Comment on above: Result Comment: [place] Glucose Reference Range is dependent on time and content of last meal. Glucose of more than 200 mg/dL in a nonstressed, ambulatory subject supports the diagnosis of Diabetes Mellitus. ADA recommended reference range Performed By: #### C BC, BMP ####[place] [id number] [facility] Potassium [Moles/Vol] 3.6 mmol/L Normal 3.5-5.1 [facility] Comment on above: Performed By: #### C BC, BMP ####[address] [address] [facility] Sodium [Moles/Vol] 138 mmol/L Normal 136-146 [facility] Comment on above: Performed By: #### C BC, BMP ####[place] [id number] [facility] Urea nitrogen [Mass/Vol] 8 mg/dL Low 9-23 [facility] Comment on above: Performed By: #### C BC, BMP ####[place] [id number] [facility] Complete Blood Count Auto Di ffon 09-29-2021 Basophils (Bld) [#/Vol] 0.0 10*3/uL Normal 0.0-0.2 [facility] Comment on above: Result Comment: PERF ORMED BY: [facility] [address] [place] [address] PATHOLOGIST SOCIAL WORK MANAGER JOESPH ZIEGLER M.D. Performed By: #### C BC, BMP ####[place] [address] Basophils/100 WBC (Bld) 0.2 % Normal . [facility] Comment on above: Performed By: #### C BC, BMP ####[address] Eosinophils (Bld) [#/Vol] 0.2 10*3/uL Normal 0.0-0.45 [facility] Comment on above: Performed By: #### C WILLAM, BMP ####[address] Eosinophils/100 WBC (Bld) 2.0 % Normal . [facility] Comment on above: Performed By: #### C WILLAM, BMP ####[address] Erythrocyte distribution width (RBC) [Ratio] 16.1 % High 11.9-15.3 [facility] Comment on above: Performed By: #### C BC, BMP ####[address] Hematocrit (Bld) [Volume fraction] 29.0 % Low 34.0-46.4 [facility] Comment on above: Performed By: #### C BC, BMP ####[address] Hemoglobin (Bld) [Mass/Vol] 9.8 g/dL Low 11.8-15.4 [facility] Comment on above: Performed By: #### C BC, BMP ####[address] Lymphocytes (Bld) [#/Vol] 0.9 10*3/uL Low 1.00-4.8 [facility] Comment on above: Performed By: #### C BC, BMP ####[place] [id number] [facility] Lymphocytes/100 WBC (Bld) 9.1 % Normal . [facility] Comment on above: Performed By: #### C BC, BMP ####[place] [id number] [facility] MCH (RBC) [Entitic mass] 29.6 pg Normal 24.7-34.3 [facility] Comment on above: Performed By: #### C BC, BMP ####[place] [address] [place] [id number] [facility] MCV (RBC) [Entitic vol] 87.2 fL Normal 80-100 [facility] Comment on above: Performed By: #### C WILLAM, BMP ####[address] Mean Corpuscular HGB Conc 33.9 g/dL Normal 32.0-35.0 [facility] Comment on above: Performed By: #### C WILLAM, BMP ####[address] Monocytes (Bld) [#/Vol] 0.8 10*3/uL Normal 0.0-0.8 [facility] Comment on above: Performed By: #### C BC, BMP ####[place] [id number] [facility] Monocytes/100 WBC (Bld) 7.5 % Normal . [facility] Comment on above: Performed By: #### C BC, BMP ####[place] [id number] [facility] Neutrophils (Bld) [#/Vol] 8.1 10*3/uL High 1.8-7.7 [facility] Comment on above: Performed By: #### C BC, BMP ####[place] [id number] [facility] Neutrophils/100 WBC (Bld) 81.2 % Normal . [facility] Comment on above: Performed By: #### C BC, BMP ####[place] [id number] [facility] Nucleated RBC/100 WBC (Bld) [Ratio] 0.0 % Normal 0-0.5 [facility] Comment on above: Performed By: #### C BC, BMP ####[place] [address] [place] [id number] [facility] Platelet mean volume (Bld) [Entitic vol] 8.8 fL Normal 6.3-10.7 [facility] Comment on above: Performed By: #### C WILLAM, BMP ####[place] [id number] [facility] Platelets (Bld) [#/Vol] 221 10*3/uL Normal 150-450 [facility] Comment on above: Performed By: #### C WILLAM, BMP ####[place] [id number] [facility] RBC (Bld) [#/Vol] 3.33 10*6/uL Low 3.60-5.00 [facility] Comment on above: Performed By: #### C WILLAM, BMP ####[address] WBC (Bld) [#/Vol] 10.0 10*3/uL Normal 4.5-11.0 [facility] Comment on above: Performed By: #### C WILLAM, BMP ####[place] [id number] [facility] XR humerus RT*on 09-29-2021 XR humerus RT* [facility] [address] [place] [address] [place] [address] XRay Report Signed Patient: Izabela Díaz MR#: [id number] 77 : 1935 Acct:[id number] Age/Sex: 86 / F ADM Date: 09/26/21 Loc: Room: [address] [place] [address] Type: ADM IN Attending Dr: Deep Smith MD Ordering Provider: Jewel Rodriguez DO Date of Service: 09/27/21 XR/XR humerus RT*: DONE Copies to: DO Deep Andino MD Fluoroscopic assessment for RIGHT humerus fixation in the 10 images. Total time 2 minutes and 56 seconds. Plate and screw fixation of the humerus identified. No hardware failure. Adequate bony alignment. XR/XR humerus RT* IMPRESSION: No postsurgical complications. Impression dictated by: Carmelo Longoria M.D.09/29/2021 1:40 PM Dictation Location: [facility] Transcribed By: [facility] 09/29/21 134 Dictated By: Carmelo Longoria DO 09/29/21 1336 Signed By: 09/29/21 134 [facility] XR humerus RT* [place] [address] XRay Report Signed Patient: Izabela Díaz MR#: [id number] 77 : 1935 Acct:[id number] Age/Sex: 86 / F ADM Date: 09/26/21 Loc: [place] Room: Type: [facility] Attending Dr: Jewel Rodriguez DO Ordering Provider: Jewel Rodriguez DO Date of Service: 09/27/21 XR/XR humerus RT*: DONE Copies to: Jewel Rodriguez DO Fluoroscopic assessment for RIGHT humerus fixation in the 10 images. Total time 2 minutes and 56 seconds. Plate and screw fixation of the humerus identified. No hardware failure. Adequate bony alignment. XR/XR humerus RT* IMPRESSION: No postsurgical complications. Impression dictated by: Carmelo Longoria M.D.09/29/2021 1:40 PM Dictation Location: [facility]--01 Transcribed By: [facility] 09/29/21 1340 Dictated By: Carmelo Longoria DO 09/29/216 Signed By: 09/29/21 1340 [facility] XR shoulder RT min 2V*on XR shoulder RT min 2V* [place] [id number] XRay Report Signed Patient: Izabela Díaz MR#: [id number] 77 : 1935 Acct:[id number] Age/Sex: 86 / F ADM Date: 09/26/21 Loc: Room: [address] [place] [address] Type: ADM IN Attending Dr: Deep Smith MD Ordering Provider: Jewel Rodriguez DO Date of Service: 09/27/21 XR/XR shoulder RT min 2V*: POST OP Copies to: DO Deep Andino MD 3 views plain filmRIGHT shoulder HISTORY:Status post RIGHT shoulder fixation COMPARISON:09/22/21 Plate-screw fixation is intact and in adequate position.Bony alignment of fracture fragments is adequate.No minor degenerative changes present. XR/XR shoulder RT min 2V* IMPRESSION:No postsurgical complication. Impression dictated by: Carmelo Longoria M.D.09/29/2021 3:53 PM Dictation Location: [place] [address] Transcribed By: [facility] 09/29/21 155 Dictated By: Carmelo Longoria DO 09/29/21 155 Signed By: 09/29/21 1553 Normal [facility] XR shoulder RT min 2V* [facility] [place] [address] [place] [address] XRay Report Signed Patient: Izabela Díaz MR#: [id number] 77 : 1935 Acct:[id number] Age/Sex: 86 / F ADM Date: 09/26/21 Loc: [place] Room: Type: PRE [facility] Attending Dr: Jewel Rodriguez DO Ordering Provider: Jewel Rodriguez DO Date of Service: 09/27/21 XR/XR shoulder RT min 2V*: POST OP Copies to: Jewel Rodriguez DO 3 views plain filmRIGHT shoulder HISTORY:Status post RIGHT shoulder fixation COMPARISON:09/22/21 Plate-screw fixation is intact and in adequate position.Bony alignment of fracture fragments is adequate.No minor degenerative changes present. XR/XR shoulder RT min 2V* IMPRESSION:No postsurgical complication. Impression dictated by: Carmelo Longoria M.D.09/29/2021 3:53 PM Dictation Location: [place] [address] Transcribed By: [facility] 09/29/211552 Dictated By: Carmelo Longoria DO 09/29/211551 Signed By: 09/29/211552 Normal [facility] Hemoglobin and Hematocriton 09-28-2021 Hematocrit (Bld) [Volume fraction] 30.8 % Low 34.0-46.4 [facility] Comment on above: Result Comment: PERF ORMED BY: [facility] [address] [place] [id number] PATHOLOGIST SOCIAL WORK MANAGER JOESPH ZIEGLER M.D. Performed By: #### H H ####[place] [id number] [facility] Hemoglobin (Bld) [Mass/Vol] 10.1 g/dL Low 11.8-15.4 [facility] Comment on above: Performed By: #### H H ####[address] [address] [place] Dipstick and Microscopicon 0 09-27-2021 Appearance (U) Cloudy Critically abnormal Clear [facility] Comment on above: Order Comment: Name Collection Type:: Clean-Voided Midstream Performed By: #### A DDONUAPLUS, CUU ####[address] [address] [facility] Bacteria,Urine None Seen Normal None Seen [facility] Comment on above: Order Comment: Name Collection Type:: Clean-Voided Midstream Performed By: #### A DDONUAPLUS, CUU ####[address] [address] [place] Bilirubin,Urine Negative Normal Negative [facility] Comment on above: Order Comment: Name Collection Type:: Clean-Voided Midstream Performed By: #### A DDONUAPLUS, CUU ####[address] [address] [facility] Color (U) Yellow Normal Yellow [facility] Comment on above: Order Comment: Name Collection Type:: Clean-Voided Midstream Performed By: #### A DDONUAPLUS, CUU ####[place] [address] [place] [address] [facility] Glucose Ql (U) Normal Normal Normal [facility] Comment on above: Order Comment: Name Collection Type:: Clean-Voided Midstream Performed By: #### A DDONUAPLUS, CUU ####[address] [address] [place] Hyaline Casts,Urine 0-8 Normal 0-8 [facility] Comment on above: Order Comment: Name Collection Type:: Clean-Voided Midstream Result Comment: PERF ORMED BY: [facility] [address] [place] [address] PATHOLOGIST SOCIAL WORK MANAGER JOESPH ZIEGLER M.D. Performed By: #### A DDONUAPLUS, CUU ####[address] [address] [facility] Ketones Ql (U) Negative Normal Negative [facility] Comment on above: Order Comment: Name Collection Type:: Clean-Voided Midstream Performed By: #### A DDONUAPLUS, CUU ####[address] [address] [facility] Leukocyte esterase Test strip Ql (U) 3+ High Negative [facility] Comment on above: Order Comment: Name Collection Type:: Clean-Voided Midstream Performed By: #### A DDONUAPLUS, CUU ####[address] [address] [place] Nitrite,Urine Negative Normal Negative [facility] Comment on above: Order Comment: Name Collection Type:: Clean-Voided Midstream Performed By: #### A DDONUAPLUS, CUU ####[address] [address] [place] Occult Blood,Urine Negative Normal Negative [facility] Comment on above: Order Comment: Name Collection Type:: Clean-Voided Midstream Result Comment: PERF ORMED BY: [facility] [address] [place] [address] PATHOLOGIST SOCIAL WORK MANAGER JOESPH ZIEGLER M.D. Performed By: #### A DDONUAPLUS, CUU ####[address] [address] [facility] pH (U) 5.0 [pH] Normal 5.0-9.0 [facility] Comment on above: Order Comment: Name Collection Type:: Clean-Voided Midstream Performed By: #### A DDONUAPLUS, CUU ####[address] [address] [facility] Protein,Urine Negative Normal Negative [facility] Comment on above: Order Comment: Name Collection Type:: Clean-Voided Midstream Performed By: #### A DDONUAPLUS, CUU ####[address] [address] [facility] RBC,Urine 5-9 High 0-4 [facility] Comment on above: Order Comment: Name Collection Type:: Clean-Voided Midstream Performed By: #### A DDONUAPLUS, CUU ####[address] [address] [facility] Specificy [place],Urine 1.019 Normal 1.001-1.030 [facility] Comment on above: Order Comment: Name Collection Type:: Clean-Voided Midstream Performed By: #### A DDONUAPLUS, CUU ####[address] [address] [facility] Squamous Epithelial Cell,Urine 3-4 High 0-2 [facility] Comment on above: Order Comment: Name Collection Type:: Clean-Voided Midstream Performed By: #### A DDONUAPLUS, CUU ####[address] [address] [facility] Urobilinogen,Urine Normal Normal Normal [facility] Comment on above: Order Comment: Name Collection Type:: Clean-Voided Midstream Performed By: #### A DDONUAPLUS, CUU ####[address] [address] [facility] WBC,Urine 10-19 High 0-4 [facility] Comment on above: Order Comment: Name Collection Type:: Clean-Voided Midstream Performed By: #### A DDONUAPLUS, CUU ####[place] [address] [place] [address] [facility] LeukoReduced RBCon 2 LeukoReduced RBC TRANSFUSED 09/27/21 1432 Normal [facility] Type and Screenon 09-27-2021 ABO and Rh group Nom (Bld) Blood group O Rh(D) positive [facility] Comment on above: Order Comment: EVA PUT FLUIDS ON HOLD SO I COULD DRAW BLOOD, AGA ABOVE IV , I DID 2 RED TOP WASTE THEN AGA THE BLOOD BANK,PLS. 1237,09/27/2021.Comment 2 UNITS ON HOLD FOR OR Transfuse now? N Result Comment: PERF ORMED BY: [address] [place] [address] PATHOLOGIST SOCIAL WORK MANAGER JOESPH ZIEGLER M.D. Urine Cultureon 09-27-2021 Bacteria identified Cx Nom (U) >100,000 colonies/ml mixed bacterial skin contaminants 2 Days PERFORMED BY: [address] [place] [address] PATHOLOGIST SOCIAL WORK MANAGER JOESPH ZIEGLER M.D. [facility] Comment on above: Performed By: #### A JOHN U ####[place] [id number] [facility] B-Type Natriuretic Peptideon 09-26-2021 Natriuretic peptide B (Bld) [Mass/Vol] 44.0 pg/mL Normal 5-100 [facility] Comment on above: Result Comment: PERF ORMED BY: [address] [place] [address] PATHOLOGIST SOCIAL WORK MANAGER JOESPH ZIEGLER M.D. Performed By: #### C BC, PT, PTT, HS TROP, CMP, BNP ####[place] [id number] [facility] COVID-19 Antigenon 2 COVID-19 Antigen Healthcare Worker?: N Reference Range: Negative Negative results, from patients with symptom onset beyond five days, should be treated as presumptive and confirmation with a molecular assay, if necessary, for patient management, may be performed. Negative results do not rule out COVID-19 and should not be used as the sole basis for treatment or patient management decisions, including infection control decisions. Negative results should be considered in the context of a patient's recent exposures, history and the presence of clinical signs and symptoms consistent with COVID-19. The Mere SARS Antigen JIMENA does not differentiate between SARS-CoV and SARS-CoV-2. This test was developed and its performance characteristic determined by [employer] and validated at [facility]. This test has not been FDA cleared or approved. This test has been authorized by FDA under an Emergency Use Authorization (EUA). This test has been validated in accordance with the FDA's Guidance Document (Policy for Diagnostics Testing in Laboratories Certified to Perform High Complexity Testing under CLIA prior to Emergency Use Authorization for Coronavirus Disease-2019 during the Public Health Emergency) issued on August 21, 2019. This test is only authorized for the duration of time the declaration that circumstances exist justifying the authorization of the emergency use of in vitro diagnostic tests for detection of SARS-CoV-2 virus and/or diagnosis of COVID-19 infection under section 564(b)(1) of the Act, 21 U.S.C. 360bbb-3(b)(1), unless the authorization is terminated or revoked sooner. SARS-CoV+SARS-CoV-2 (COVID-19) Ag [Presence] in Respiratory specimen by Rapid immunoassay Negative for SARS Antigen by JIMENA PERFORMED BY: [facility] [address] [place] [id number] PATHOLOGIST SOCIAL WORK MANAGER JOESPH ZIEGLER M.D. Normal [facility] Comment on above: Performed By: #### S OFIANEG, COVID 19 [facility], COVID-19 MERE ####[facility] [address] [place] [address] [facility] COVID-19 [facility] 09-26-2021 SARS-CoV-2 (COVID-19) RNA [place]TON+probe Ql (Unsp spec) Negative Normal Negative [facility] Comment on above: Order Comment: Healt hcare Worker?: N Result Comment: Testing for SARS-CoV-2 by RT-PCR This test was developed and its performance characteristics determined by [employer] and validated at the [facility]. This test has not been FDA cleared or approved. This test has been authorized by FDA under an Emergency Use Authorization (EUA). This test has been validated in accordance with the FDA's Guidance Document (Policy for Diagnostics Testing in Laboratories Certified to Perform High Complexity Testing under CLIA prior to Emergency Use Authorization for Coronavirus Disease-2019 during the Public Health Emergency) issued on August 21, 2019. This test is only authorized for the duration of time the declaration that circumstances exist justifying the authorization of the emergency use of in vitro diagnostic tests for detection of SARS-CoV-2 virus and/or diagnosis of COVID-19 infection under section 564(b)(1) of the Act, 21 U.S.C. 360bbb-3(b)(1), unless the authorization is terminated or revoked sooner. PERFORMED BY: [place] [address] PATHOLOGIST SOCIAL WORK MANAGER JOESPH ZIEGLER M.D. Performed By: #### S OFLEONARD, COVID 19 [facility], COVID-19 [facility] ####[address] facial bones wo conon CT facial bones wo con [facility] [place] [address] [place] [address] CT Scan Report Signed Patient: Izabela Díaz MR#: [id number] [birth year] : 1935 Acct:[id number] Age/Sex: 86 / F ADM Date: 09/26/21 Loc: ER Room: Type: [facility] ER Attending Dr: Ordering Provider: Harman Corea DO Date of Service: 09/26/21 CT/CT head/brain wo con: dizziness ([id number]) CT/CT facial bones wo con: fall Copies to: Harman Corea DO CLINICAL DATA: History of fall 4 days ago. Contusion of the right eye and dizziness. CT BRAIN WITHOUT CONTRAST: COMPARISON: None TECHNIQUE: Contiguous axial unenhanced images were obtained through the brain. This CT exam was performed using one or more following dose reduction techniques: Automated exposure control, adjustment of the mA and/or kV according to patient size, or use of iterative reconstruction technique. FINDINGS: There is mild generalized atrophy. The ventricles are normal in size and position. Mild microvascular changes are noted. There are no additional areas of abnormal attenuation. There is no hemorrhage, mass effect or extra-axial collections. A small subcutaneous hematoma is present at the right forehead. CT/CT head/brain wo con IMPRESSION: ATROPHY AND MINOR MICROVASCULAR CHANGES. NO ACUTE INTRACRANIAL ABNORMALITY. MAXILLOFACIAL CT WITHOUT CONTRAST: COMPARISON: None TECHNIQUE: Spiral axial unenhanced images were obtained through the facial bones. Coronal and sagittal reconstructions were also reviewed. This CT exam was performed using one or more following dose reduction techniques: Automated exposure control, adjustment of the mA and/or kV according to patient size, or use of iterative reconstruction technique. FINDINGS: No facial bone fracture or bony destruction is identified. There is appropriate development and pneumatization of the paranasal sinuses. There is minor left maxillary and ethmoid mucosal thickening. No fluid levels are seen. The ostiomeatal complexes are patent. Dental caries are visualized. The intraorbital contents are unremarkable. Subcutaneous hematoma is present at the right forehead. IMPRESSION: NO EVIDENCE OF FACIAL BONE INJURY Impression dictated by: Winnie Dela Cruz M.D.09/26/2021 3:51 PM Dictation Location: [place] [address] Transcribed By: [facility] 09/26/21 1551 Dictated By: Winnie Dela Cruz MD 09/26/21 1542 Signed By: 09/26/21 1551 Normal [facility] Complete Blood Count Auto Di ffon 09-26-2021 Basophils (Bld) [#/Vol] 0.1 10*3/uL Normal 0.0-0.2 [facility] Comment on above: Result Comment: PERF ORMED BY: [place] [address] PATHOLOGIST SOCIAL WORK MANAGER JOESPH ZIEGLER M.D. Performed By: #### C BC, PT, PTT, HS TROP, CMP, BNP #### [address] Basophils/100 WBC (Bld) 0.8 % Normal . [facility] Comment on above: Performed By: #### C BC, PT, PTT, HS TROP, CMP, BNP #### [address] Eosinophils (Bld) [#/Vol] 0.3 10*3/uL Normal 0.0-0.45 [facility] Comment on above: Performed By: #### C BC, PT, PTT, HS TROP, CMP, BNP #### [address] Eosinophils/100 WBC (Bld) 3.3 % Normal . [facility] Comment on above: Performed By: #### C BC, PT, PTT, HS TROP, CMP, BNP #### [address] Erythrocyte distribution width (RBC) [Ratio] 13.9 % Normal 11.9-15.3 [facility] Comment on above: Performed By: #### C BC, PT, PTT, HS TROP, CMP, BNP #### [address] Hematocrit (Bld) [Volume fraction] 26.5 % Low 34.0-46.4 [facility] Comment on above: Performed By: #### C BC, PT, PTT, HS TROP, CMP, BNP #### [address] Hemoglobin (Bld) [Mass/Vol] 9.0 g/dL Low 11.8-15.4 [facility] Comment on above: Performed By: #### C BC, PT, PTT, HS TROP, CMP, BNP #### [address] Lymphocytes (Bld) [#/Vol] 0.9 10*3/uL Low 1.00-4.8 [facility] Comment on above: Performed By: #### C BC, PT, PTT, HS TROP, CMP, BNP #### [address] Lymphocytes/100 WBC (Bld) 9.2 % Normal . [facility] Comment on above: Performed By: #### C BC, PT, PTT, HS TROP, CMP, BNP #### [address] MCH (RBC) [Entitic mass] 31.0 pg Normal 24.7-34.3 [facility] Comment on above: Performed By: #### C BC, PT, PTT, HS TROP, CMP, BNP #### [address] MCV (RBC) [Entitic vol] 91.5 fL Normal 80-100 [facility] Comment on above: Performed By: #### C BC, PT, PTT, HS TROP, CMP, BNP #### [address] Mean Corpuscular HGB Conc 33.9 g/dL Normal 32.0-35.0 [facility] Comment on above: Performed By: #### C BC, PT, PTT, HS TROP, CMP, BNP #### [address] Monocytes (Bld) [#/Vol] 0.7 10*3/uL Normal 0.0-0.8 [facility] Comment on above: Performed By: #### C BC, PT, PTT, HS TROP, CMP, BNP #### [address] Monocytes/100 WBC (Bld) 7.3 % Normal . [facility] Comment on above: Performed By: #### C BC, PT, PTT, HS TROP, CMP, BNP #### [address] Neutrophils (Bld) [#/Vol] 8.0 10*3/uL High 1.8-7.7 [facility] Comment on above: Performed By: #### C BC, PT, PTT, HS TROP, CMP, BNP #### [address] Neutrophils/100 WBC (Bld) 79.4 % Normal . [facility] Comment on above: Performed By: #### C BC, PT, PTT, HS TROP, CMP, BNP #### [address] [place] [address] [place] Nucleated RBC/100 WBC (Bld) [Ratio] 0.0 % Normal 0-0.5 [facility] Comment on above: Performed By: #### C BC, PT, PTT, HS TROP, CMP, BNP #### [address] Platelet mean volume (Bld) [Entitic vol] 9.1 fL Normal 6.3-10.7 [facility] Comment on above: Performed By: #### C BC, PT, PTT, HS TROP, CMP, BNP #### [address] Platelets (Bld) [#/Vol] 257 10*3/uL Normal 150-450 [facility] Comment on above: Performed By: #### C BC, PT, PTT, HS TROP, CMP, BNP #### [address] RBC (Bld) [#/Vol] 2.90 10*6/uL Low 3.60-5.00 [facility] Comment on above: Performed By: #### C BC, PT, PTT, HS TROP, CMP, BNP #### [address] WBC (Bld) [#/Vol] 10.1 10*3/uL Normal 4.5-11.0 [facility] Comment on above: Performed By: #### C BC, PT, PTT, HS TROP, CMP, BNP #### [address] Comprehensive Metabolic Pane chandra 09-26-2021 Albumin [Mass/Vol] 3.4 g/dL Normal 3.2-5.5 [facility] Comment on above: Performed By: #### C BC, PT, PTT, HS TROP, CMP, BNP #### [address] Albumin/Globulin [Mass ratio] 1.1 {ratio} Normal [facility] Comment on above: Performed By: #### C BC, PT, PTT, HS TROP, CMP, BNP #### [facility] [address] ALP [Catalytic activity/Vol] 63 U/L Normal 32-92 [facility] Comment on above: Performed By: #### C BC, PT, PTT, HS TROP, CMP, BNP #### [address] ALT [Catalytic activity/Vol] 16 U/L Normal 10-60 [facility] Comment on above: Performed By: #### C BC, PT, PTT, HS TROP, CMP, BNP #### [address] AST [Catalytic activity/Vol] 25 U/L Normal 10-42 [facility] Comment on above: Performed By: #### C BC, PT, PTT, HS TROP, CMP, BNP #### [address] Bilirubin [Mass/Vol] 0.8 mg/dL Normal 0.3-1.2 [facility] Comment on above: Performed By: #### C BC, PT, PTT, HS TROP, CMP, BNP #### [address] Calcium [Mass/Vol] 9.4 mg/dL Normal 8.2-10.2 [facility] Comment on above: Performed By: #### C BC, PT, PTT, HS TROP, CMP, BNP #### [place] [address] [place] Chloride [Moles/Vol] 99 mmol/L Normal 95-114 [facility] Comment on above: Performed By: #### C BC, PT, PTT, HS TROP, CMP, BNP #### [address] CO2 [Moles/Vol] 27.4 mmol/L Normal 22.0-30.0 [facility] Comment on above: Performed By: #### C BC, PT, PTT, HS TROP, CMP, BNP #### [place] [address] [place] Creatinine [Mass/Vol] 0.93 mg/dL Normal 0.44-1.03 [facility] Comment on above: Performed By: #### C BC, PT, PTT, HS TROP, CMP, BNP #### [address] Creatinine Clr Calc Pharmacy 32.34 [facility] Comment on above: Result Comment: PERF ORMED BY: [place] [address] PATHOLOGIST SOCIAL WORK MANAGER JOESPH ZIEGLER M.D. Performed By: #### C BC, PT, PTT, HS TROP, CMP, BNP #### [address] Estimated GFR ( Dominique > 60 [facility] Comment on above: Result Comment: GFR estimated reference range: According to KDOQI guidelines, <60 ml/min/1.73m2 is sufficient to diagnose a patient with chronic kidney disease. Performed By: #### C BC, PT, PTT, HS TROP, CMP, BNP #### [address] Estimated GFR (Non- Am 57 [facility] Comment on above: Performed By: #### C BC, PT, PTT, HS TROP, CMP, BNP #### [address] Globulin (S) [Mass/Vol] 3.0 g/dL [facility] Comment on above: Performed By: #### C BC, PT, PTT, HS TROP, CMP, BNP #### [address] Glucose [Mass/Vol] 96 mg/dL Normal 70-100 [facility] Comment on above: Result Comment: [place] om Glucose Reference Range is dependent on time and content of last meal. Glucose of more than 200 mg/dL in a nonstressed, ambulatory subject supports the diagnosis of Diabetes Mellitus. ADA recommended reference range Performed By: #### C BC, PT, PTT, HS TROP, CMP, BNP #### [address] Potassium [Moles/Vol] 3.8 mmol/L Normal 3.5-5.1 [facility] Comment on above: Performed By: #### C BC, PT, PTT, HS TROP, CMP, BNP #### [facility] [address] Protein [Mass/Vol] 6.4 g/dL Normal 6.1-7.9 [facility] Comment on above: Performed By: #### C BC, PT, PTT, HS TROP, CMP, BNP #### [facility] [address] Sodium [Moles/Vol] 137 mmol/L Normal 136-146 [facility] Comment on above: Performed By: #### C BC, PT, PTT, HS TROP, CMP, BNP #### [facility] [address] Urea nitrogen [Mass/Vol] 25 mg/dL High - [facility] Comment on above: Performed By: #### C BC, PT, PTT, HS TROP, CMP, BNP #### [address] ECG 12 lead ECGon 09-26-2021 ECG 12 lead ECG [facility] [place] [address] [place] [address] Electrocardiograph Report Signed Patient: Izabela Díaz MR#: [id number] [birth year] : 1935 Acct:[id number] Age/Sex: 86 / F ADM Date: 09/26/21 Loc: Room: [address] [place] [address] Type: DIS IN Attending Dr: Deep Smith MD Ordering Provider: Harman Corea DO Date of Service: 09/26/2102/09/1457 ECG/ECG 12 lead ECG: Fall Copies to: Test Reason : Blood Pressure : / mmHG Vent. Rate : 064 BPM Atrial Rate : 064 BPM P-R Int : 150 ms QRS Dur : 090 ms QT Int : 384 ms P-R-T Axes : 050 066 077 degrees QTc Int : 396 ms Normal sinus rhythm Possible Lateral infarct , age undetermined Abnormal ECG No previous ECGs available Confirmed by Harman Corea DO ([id number]) on 09/26/2021 7:00:52 PM Referred By: Electronically Signed By:Harman Corea DO Transcribed By: MUS Signed By Harman Corea DO 2 1901 Normal [facility] Partial Thromboplastin Timeo n 09-26-2021 aPTT Coag (Bld) [Time] 28.4 s Normal 25.1-36.5 [facility] Comment on above: Result Comment: PERF ORMED BY: [place] [address] PATHOLOGIST SOCIAL WORK MANAGER JOESPH ZIEGLER M.D. Performed By: #### C BC, PT, PTT, HS TROP, CMP, BNP #### [facility] [address] [place] [address] Prothrombin Time INRon 09-26 INR Coag (PPP) [Relative time] 1.0 {INR} Normal [facility] Comment on above: Result Comment: INR Therapeutic Range A) Pre- and Peroperative OAT started two weeks before surgery. NOT HIP SURGERY: 1.5 - 2.5 HIP SURGERY: 2 - 3 B) Primary and secondary prevention of venous THROMBOSIS: 2 - 3 C) Active venous thrombosis, pulmonary embolism and prevention of recurrent venous thrombosis: 2 - 3 D) Prevention of arterial thromboembolism including patients with mechanical heart valves: 3 - 4.5 Performed By: #### C BC, PT, PTT, HS TROP, CMP, BNP #### [facility] [address] [place] [address] PT Coag (PPP) [Time] 11.4 s Normal 9.0-12.9 [facility] Comment on above: Performed By: #### C BC, PT, PTT, HS TROP, CMP, BNP #### [facility] [address] [place] [address] Mere Ag Negativeon 09-27-19 22 Mere Ag Negative Negative Normal Negative [facility] Comment on above: Result Comment: This is a duplicate Mere SARS Antigen (JIMENA) result to be used for statistical tracking purpose only. PERFORMED BY: [address] [place] [address] PATHOLOGIST SOCIAL WORK MANAGER JOESPH ZIEGLER M.D. Performed By: #### S OFIANEG, COVID 19 [facility], COVID-19 MERE ####[facility] [address] [place] [address] [place] Troponin I High Sensitivityo n 09-26-2021 Troponin I High Sensitivity 12 pg/mL Normal 0-15 [facility] Comment on above: Result Comment: PERF ORMED BY: [place] [address] PATHOLOGIST SOCIAL WORK MANAGER JOESPH ZIEGLER M.D. Performed By: #### C BC, PT, PTT, HS TROP, CMP, BNP #### [facility] [address] [place] [address] [facility] XR chest 1V portableon 09-26 XR chest 1V portable [facility] [place] [address] [place] [address] XRay Report Signed Patient: Izabela Díaz MR#: [id number] 77 : 1935 Acct:[id number] Age/Sex: 86 / F ADM Date: 09/26/21 Loc: ER Room: Type: [facility] ER Attending Dr: Ordering Provider: Harman Corea DO Date of Service: 09/26/21 XR/XR chest 1V portable: Fall Copies to: Harman Corea DO Plain film chestsingle view HISTORY:Fell. COMPARISON:None FINDINGS: The cardiac, mediastinal and hilar silhouettes are within normal limits. No acute lung process, pleural effusion or pneumothorax identified. LEFT shoulder degeneration. XR/XR chest 1V portable IMPRESSION: No acute process. Impression dictated by: Carmelo Longoria M.D.09/26/2021 3:35 PM Dictation Location: [place] [address] Transcribed By: [facility] 09/26/21 1535 Dictated By: Carmelo Longoria DO 09/26/21 1534 Signed By: 09/26/21 1535 Normal [facility] XR knee LT 3V - NOT FOR ER U Carine 09-26-2021 XR knee LT 3V - NOT FOR ER USE [facility] [place] [address] [place] [address] XRay Report Signed Patient: Izabela Díaz MR#: [id number] [birth year] : 1935 Acct:[id number] Age/Sex: 86 / F ADM Date: 09/26/21 Loc: [facility] Room: Type: [facility] CLI Attending Dr: Jewel Rodriguez DO Ordering Provider: Jewel Rodriguez DO Date of Service: 09/26/21 XR/XR knee LT 3V - NOT FOR ER USE: Acute pain of left knee Copies to: Jewel Rodriguez DO RIGHT KNEE - 3 views COMPARISON: None CLINICAL DATA: Left knee pain since fall 4 days ago. Standing AP, lateral and sunrise views were obtained. The bony structures are osteopenic. On the sunrise view, there is an asymmetric linear lucency at the anterior medial aspect of the patella. There is no significant overlying soft tissue swelling and this may be artifactual, however focal clinical correlation is suggested to exclude a possible nondisplaced fracture. No additional fractures or dislocation are noted. There is slight narrowing of the tibiofemoral joint compartments. There are tiny marginal spurs. There is a trace amount joint fluid. XR/XR knee LT 3V - NOT FOR ER USE IMPRESSION: OSTEOPENIA AND MINOR DEGENERATIVE CHANGES. EQUIVOCAL FINDING AT THE MEDIAL PATELLA FOR WHICH FOCAL CLINICAL CORRELATION IS SUGGESTED. Impression dictated by: Winnie Dela Cruz M.D.09/26/2021 2:48 PM Dictation Location: [place] [address] Transcribed By: [facility] 09/26/21 1448 Dictated By: Winnie Dela Cruz MD 09/26/21 1444 Signed By: 09/26/21 1448 Normal [facility] EKG 12 Leadon 03-24-2020 Atrial Rate 67 BPM [facility] [place] P [place] 26 degrees [facility] [place] P-R Interval 154 ms [facility] [place] Q-T Interval 398 ms [facility] [place] QRS Duration 86 ms [facility] [place] QTc Calculation (Bazett) 420 ms [facility] R [place] 21 degrees [place], [place] T [place] 82 degrees [place] Ventricular Rate 67 BPM [place], [place] Normal sinus rhythm Cannot rule out Inferior infarct , age undetermined Abnormal ECG No previous ECGs available [place], [place] Emmanuel, [facility] Incoming Ekg Results From [employer] - 03/24/2020 9:48 AM EST Normal sinus rhythm Cannot rule out Inferior infarct , age undetermined Abnormal ECG No previous ECGs available [place], [place] Surgical Pathologyon 020 Surgical Pathology (NOTE) -- Diagnosis -- RECTUM RESECTION: RECTALMUCOSAAL HYPERPLASTIC CHANGES; SUBMUCOSAL EDEMA, CONGESTION, HEMORRHAGE, AND MILD REACTIVE FIBROSIS; AND UNREMARKABLE MUSCULARIS PROPRIA; FEATURES ARE COMPATIBLE WITH RECTAL MUCOSAL PROLAPSE SYNDROME. NO EVIDENCE OF MALIGNANCY. Hebert Cha Electronically Signed Out ajb/03/25/2020 Clinical Information Pre-op Diagnosis: RECTAL PROLAPSE Operative Findings: RECTAL PROLAPSE Operation Performed: COLONOSCOPY WITH PERIANAL RESECTION AND RECTAL PROLAPSE REPAIR Source of Specimen 1: RECTAL PROLAPSE Gross Description IZABELA DÍAZ, RECTAL PROLAPSE 4.0 cm long x 6.8 cm in diameter segment of bowel surrounded by fat. The mucosa is latif-brown and edematous. There are no masses. Director Center sections of each end, 2cs. tm Microscopic Description Microscopic examination performed. SURGICAL PATHOLOGY CONSULTATION Patient Name: IZABELA DÍAZ [facility] Rec: [id number] Path Number: [id number] [facility] [employer] ANATOMIC PATHOLOGY [address] [place] [phone] Normal [facility] Comment on above: Performed By: #### P PPVS #### [facility] [address] [place] [id number] [employer] Supervisor: Pasquale Spain MD Covid-19 Ambulatoryon 2019 SARS-CoV-2, [place] Not Detected Not Detected [place], [place] Comment on above: (NOTE) This nucleic acid amplification test was developed and its performance characteristics determined by [employer]. Nucleic acid amplification tests include PCR and TMA. This test has not been FDA cleared or approved. This test has been authorized by FDA under an Emergency Use Authorization (EUA). This test is only authorized for the duration of time the declaration that circumstances exist justifying the authorization of the emergency use of in vitro diagnostic tests for detection of SARS-CoV-2 virus and/or diagnosis of COVID-19 infection under section 564(b)(1) of the Act, 21 U.S.C. 360bbb-3(b) (1), unless the authorization is terminated or revoked sooner. When diagnostic testing is negative, the possibility of a false negative result should be considered in the context of a patient's recent exposures and the presence of clinical signs and symptoms consistent with COVID-19. An individual without symptoms of COVID- 19 and who is not shedding SARS-CoV-2 virus would expect to have a negative (not detected) result in this assay. Performed At: [facility] [address] [facility] [place] [id number] Golden Latham MD Ph:[phone] Amylaseon 02-28-2020 Amylase [Catalytic activity/Vol] 28 U/L Normal 28-100 [facility] Comment on above: Performed By: #### L IP, CBC, MG, FIOAN, SUDHIR, CMPX #### [facility] [address] [facility]. [place] [id number] [employer] Supervisor: Riky Avalos MD Amylase [Catalytic activity/Vol] 28 U/L 28 - 100 U/L [place] CBCon 02-28-2020 Erythrocyte distribution width (RBC) [Ratio] 12.8 % Normal 11.8-14.4 [facility] Comment on above: Performed By: #### L IP, CBC, MG, FIONA, SUDHIR, CMPX #### [facility] [address] [facility] [place] [address] [employer] Supervisor: Riky Avalos MD Hematocrit (Bld) [Volume fraction] 38.7 % Normal 36.3-47.1 [facility] Comment on above: Performed By: #### L IP, CBC, MG, FIONA, SUDHIR, CMPX #### [facility] [address] [facility] [place] [address] [employer] Supervisor: Riky Avalos MD Hemoglobin (Bld) [Mass/Vol] 12.3 g/dL Normal 11.9-15.1 [facility] Comment on above: Performed By: #### L IP, CBC, MG, FIONA, SUDHIR, CMPX #### [facility] [address] [facility]. [place], [place] [id number] [employer] Supervisor: Riky Avalos MD MCH (RBC) [Entitic mass] 30.2 pg Normal 25.2-33.5 [facility] Comment on above: Performed By: #### L IP, CBC, MG, FIONA, SUDHIR, CMPX #### [facility] [address] [place] [address]. [place], [place] [id number] [employer] Supervisor: Riky Avalos MD MCHC (RBC) [Mass/Vol] 31.8 g/dL Normal 28.4-34.8 [facility] Comment on above: Performed By: #### L IP, CBC, MG, FIONA, SUDHIR, CMPX #### [facility] [address] [place] [address]. [place] [address] [employer] Supervisor: Riky Avalos MD MCV (RBC) [Entitic vol] 95.1 fL Normal 82.6-102.9 [facility] Comment on above: Performed By: #### L IP, CBC, MG, FIONA, SUDHIR, CMPX #### [facility]. [place], [place] [id number] [employer] Supervisor: Riky Avalos MD NRBC Automated 0.0 per 100 WBC Normal 0.0 [facility] Comment on above: Performed By: #### L IP, CBC, MG, FIONA, SUDHIR, CMPX #### [facility] [address] [place] [address]. [place], [place] [id number] [employer] Supervisor: Riky Avalos MD Platelet mean volume (Bld) [Entitic vol] 10.1 fL Normal 8.1-13.5 [facility] Comment on above: Performed By: #### L IP, CBC, MG, FIONA, SUDHIR, CMPX #### [facility] [address] [facility] [place] [address] [employer] Supervisor: Riky Avalos MD Platelets (Bld) [#/Vol] 217 10*3/uL Normal 138-453 [facility] Comment on above: Performed By: #### L IP, CBC, MG, FIONA, SUDHIR, CMPX #### [facility] [address] [place] [address] [employer] Supervisor: Riky Avalos MD RBC (Bld) [#/Vol] 4.07 10*6/uL Normal 3.95-5.11 [facility] Comment on above: Performed By: #### L IP, CBC, MG, FIONA, SUDHIR, CMPX #### [facility] [address] [facility] [place] [address] [employer] Supervisor: Riky Avalos MD WBC (Bld) [#/Vol] 8.6 10*3/uL Normal 3.5-11.3 [facility] Comment on above: Performed By: #### L IP, CBC, MG, FIONA, SUDHIR, CMPX #### [facility] [address] [place] [address] [employer] Supervisor: Riky Avalos MD Erythrocyte distribution width (RBC) [Ratio] 12.8 % 11.8 - 14.4 % [place] Hematocrit (Bld) [Volume fraction] 38.7 % 36.3 - 47.1 % [place] Hemoglobin (Bld) [Mass/Vol] 12.3 g/dL 11.9 - 15.1 g/dL [place] MCH (RBC) [Entitic mass] 30.2 pg 25.2 - 33.5 pg [place] MCHC (RBC) [Mass/Vol] 31.8 g/dL 28.4 - 34.8 g/dL [place] MCV (RBC) [Entitic vol] 95.1 fL 82.6 - 102.9 fL [place] Platelet mean volume (Bld) [Entitic vol] 10.1 fL 8.1 - 13.5 fL [place] Platelets (Bld) [#/Vol] 217 10*3/uL [place] RBC (Bld) [#/Vol] 4.07 10*6/uL 3.95 - 5.1 1 m/uL [place] WBC (Bld) [#/Vol] 8.6 10*3/uL [place] WBC (Bld) [#/Vol] 0.0 10*3/uL 0.0 per 10 0 WBC [place] Comp Metabolic Pr/rfx MGon (cont.) Normal [facility] Comment on above: Result Comment: Aver age GFR for 70 or more years old: 75 mL/min/1.73sq m Chronic Kidney Disease: <60 mL/min/1.73sq m Kidney failure: <15 mL/min/1.73sq m eGFR calculated using average adult body mass. Additional eGFR calculator available at: http://www.COINLAB/multiple_crcl_2012.htm Performed By: #### L IP, CBC, MG, FIONA, SUDHIR, CMPX #### [facility] [address] [place], [place] [id number] [employer] Supervisor: Riky Avalos MD Albumin [Mass/Vol] 3.7 g/dL Normal 3.5-5.2 [facility] Comment on above: Performed By: #### L IP, CBC, MG, FIONA, SUDHIR, CMPX #### [facility] [address] [place], [place] [id number] [employer] Supervisor: Riky Avalos MD Alkaline Phos 67 U/L Normal 35-104 [facility] Comment on above: Performed By: #### L IP, CBC, MG, FIONA, SUDHIR, CMPX #### [facility] [address] [place] [address] [employer] Supervisor: Riky Avalos MD ALT [Catalytic activity/Vol] 11 U/L Normal 5-33 [facility] Comment on above: Performed By: #### L IP, CBC, MG, FIONA, SUDHIR, CMPX #### [facility] [address] [place] [address] [employer] Supervisor: Riky Avalos MD Anion gap [Moles/Vol] 13 mmol/L Normal 9-17 [facility] Comment on above: Performed By: #### L IP, CBC, MG, FIONA, SUDHIR, CMPX #### [facility] [address] [facility] [place] [address] [employer] Supervisor: Riky Avalos MD AST [Catalytic activity/Vol] 18 U/L Normal <32 [facility] Comment on above: Performed By: #### L IP, CBC, MG, FIONA, SUDHIR, CMPX #### [facility] [address] [facility] [place] [address] [employer] Supervisor: Riky Avalos MD Bilirubin Ql (U) 0.52 mg/dL Normal 0.3-1.2 [facility] Comment on above: Performed By: #### L IP, CBC, MG, FIONA, SUDHIR, CMPX #### [facility] [address] [facility] [place] [address] [employer] Supervisor: Riky Avalos MD BUN/CRE Ratio 10 Normal 9-20 [facility] Comment on above: Performed By: #### L IP, CBC, MG, FIONA, SUDHIR, CMPX #### [facility] [address] [facility] [place] [address] [employer] Supervisor: Riky Avalos MD Calcium [Mass/Vol] 9.0 mg/dL Normal 8.6-10.4 [facility] Comment on above: Performed By: #### L IP, CBC, MG, FIONA, SUDHIR, CMPX #### [facility] [address] [place] [address] [employer] Supervisor: Riky Avalos MD Chloride [Moles/Vol] 102 mmol/L Normal 98-107 [facility] Comment on above: Performed By: #### L IP, CBC, MG, FIONA, SUDHIR, CMPX #### [facility] [address] [place] [address] [employer] Supervisor: Riky Avalos MD CO2 [Moles/Vol] 24 mmol/L Normal 20-31 [facility] Comment on above: Performed By: #### L IP, CBC, MG, FIONA, SUDHIR, CMPX #### [facility] [address] [place] [address] [employer] Supervisor: Riky Avalos MD Creatinine [Mass/Vol] 0.61 mg/dL Normal 0.50-0.90 [facility] Comment on above: Performed By: #### L IP, CBC, MG, FIONA, SUDHIR, CMPX #### [facility] [facility] [place] [address] [employer] Supervisor: Riky Avalos MD GFR, Amer >60 Normal >60 [facility] Comment on above: Performed By: #### L IP, CBC, MG, FIONA, SUDHIR, CMPX #### [facility] [address] [place] [address] [employer] Supervisor: Riky Avalos MD GFR,non Amer >60 Normal >60 [facility] Comment on above: Performed By: #### L IP, CBC, MG, FIONA, SUDHIR, CMPX #### [facility] [address] [place] [address] [employer] Supervisor: Riky Avalos MD Glucose [Mass/Vol] 127 mg/dL High 70-99 [facility] Comment on above: Performed By: #### L IP, CBC, MG, FIONA, SUDHIR, CMPX #### [facility] [address] [facility] [place] [address] [employer] Supervisor: Riky Avalos MD Potassium [Moles/Vol] 3.8 mmol/L Normal 3.7-5.3 [facility] Comment on above: Performed By: #### L IP, CBC, MG, FIONA, SUDHIR, CMPX #### [facility] [address] [place] [address]. [place] [address] [employer] Supervisor: Riky Avalos MD Protein [Mass/Vol] 6.7 g/dL Normal 6.4-8.3 [facility] Comment on above: Performed By: #### L IP, CBC, MG, FIONA, SUDHIR, CMPX #### [facility] [facility] [place] [address] [employer] Supervisor: Riky Avalos MD Sodium [Moles/Vol] 139 mmol/L Normal 135-144 [facility] Comment on above: Performed By: #### L IP, CBC, MG, FIONA, SUDHIR, CMPX #### [facility] [address] [facility] [place] [address] [employer] Supervisor: Riky Avalos MD Urea nitrogen [Mass/Vol] 6 mg/dL Low 8-23 [facility] Comment on above: Performed By: #### L IP, CBC, MG, FIONA, SUDHIR, CMPX #### [facility] [address] [facility] [place] [address] [employer] Supervisor: Riky Avalos MD Albumin/Globulin [Mass ratio] NOT REPORTED Normal 1.0-2.5 [facility] Comment on above: Performed By: #### L IP, CBC, MG, FIONA, SUDHIR, CMPX #### [facility] [address] [place] [address] [employer] Supervisor: Riky Avalos MD Staging: NOT REPORTED Normal [facility] Comment on above: Performed By: #### L IP, CBC, MG, FIONA, SUDHIR, CMPX #### [facility] [address] [facility] [place] [address] [employer] Supervisor: Riky Avalos MD Comprehensive Metabolic Pane l w/ Reflex to [facility] 02-28-2020 Albumin [Mass/Vol] 3.7 g/dL 3.5 - 5.2 g/dL [place] Albumin/Globulin [Mass ratio] NOT REPORTED [place] ALP [Catalytic activity/Vol] 67 U/L 35 - 104 U/L [place] ALT [Catalytic activity/Vol] 11 U/L 5 - 33 U/L [place] Anion gap [Moles/Vol] 13 mmol/L 9 - 17 mmol/L [place] AST [Catalytic activity/Vol] 18 U/L <32 [place] Bilirubin Ql (U) 0.52 mg/dL 0.3 - 1.2 mg/dL [place] Bun/Cre Ratio 10 [place] Calcium [Mass/Vol] 9.0 mg/dL 8.6 - 10. 4 mg/dL [place] Chloride [Moles/Vol] 102 mmol/L 98 - 107 mmol/L [place] CO2 [Moles/Vol] 24 mmol/L 20 - 31 mmol/L [place] Creatinine [Mass/Vol] 0.61 mg/dL 0.5 - 0.9 mg/dL [place] GFR >60 >60 mL/min [place] GFR Non- >60 >60 mL/min [place] GFR/1.73 sq M predicted among non-blacks MDRD (S/P/Bld) [Vol rate/Area] NOT REPORTED [place] GFR/1.73 sq M predicted among non-blacks MDRD (S/P/Bld) [Vol rate/Area] [place] Comment on above: Average GFR for 70 o r more years old: 75 mL/min/1.73sq m Chronic Kidney Disease: <60 mL/min/1.73sq m Kidney failure: <15 mL/min/1.73sq m eGFR calculated using average adult body mass. Additional eGFR calculator available at: http://www.COINLAB/multiple_crcl_2011.htm Glucose [Mass/Vol] 127 mg/dL High 70 - 99 mg/dL [place] Potassium [Moles/Vol] 3.8 mmol/L 3.7 - 5.3 mmol/L [place] Protein [Mass/Vol] 6.7 g/dL 6.4 - 8.3 g/dL [place] Sodium [Moles/Vol] 139 mmol/L 135 - 144 mmol/L [place] Urea nitrogen [Mass/Vol] 6 mg/dL Low 8 - 23 mg/dL [place] Lipaseon 02-28-2020 Lipase [Catalytic activity/Vol] 13 U/L Normal 13-60 [facility] Comment on above: Performed By: #### L IP, CBC, MG, FIONA, SUDHIR, CMPX #### [facility] [address] [place] [address] [employer] Supervisor: Riky Avalos MD Lipase [Catalytic activity/Vol] 13 U/L 13 - 60 U/L [place] Magnesiumon 02-28-2020 Magnesium [Mass/Vol] 1.8 mg/dL Normal 1.6-2.6 [facility] Comment on above: Performed By: #### L IP, CBC, MG, FIONA, SUDHIR, CMPX #### [facility] [address] [place], [place] [id number] [employer] Supervisor: Riky Avalos MD Magnesium [Mass/Vol] 1.8 mg/dL 1.6 - 2.6 mg/dL [place] Otheron 02-28-2020 Interpretation and review of laboratory results Abnormal [place] Phosphoruson 02-28-2020 Phosphate [Mass/Vol] 1.8 mg/dL Low 2.6 - 4.5 mg/dL [place] Phosphorus, Inorg.on 020 Phosphorus, Inorg. 1.8 mg/dL Low 2.6-4.5 [facility] Comment on above: Performed By: #### L IP, CBC, MG, FIONA, SUDHIR, CMPX #### [facility] [address], [place] [id number] [employer] Supervisor: Riky Avalos MD Basic Metabolic Profon 02-26 (cont.) Normal [facility] Comment on above: Result Comment: Aver age GFR for 70 or more years old: 75 mL/min/1.73sq m Chronic Kidney Disease: <60 mL/min/1.73sq m Kidney failure: <15 mL/min/1.73sq m eGFR calculated using average adult body mass. Additional eGFR calculator available at: http://www.[employer].ChirpVision/multiple_crcl_2012.htm Performed By: #### C DP, BMP #### [facility] [address] [facility] [place] [address] [employer] Supervisor: Sloan Williamson DO Anion gap [Moles/Vol] 10 mmol/L Normal 9-17 [facility] Comment on above: Performed By: #### C DP, BMP #### [facility] [address] [facility]. [place], [place] [id number] [employer] Supervisor: Sloan Williamson DO Calcium [Mass/Vol] 9.6 mg/dL Normal 8.6-10.4 [facility] Comment on above: Performed By: #### C DP, BMP #### [facility] [address] [place] [address] [employer] Supervisor: Sloan Williamson DO Chloride [Moles/Vol] 101 mmol/L Normal 98-107 [facility] Comment on above: Performed By: #### C DP, BMP #### [facility] [address] [place] [address] [employer] Supervisor: Sloan Williamson DO CO2 [Moles/Vol] 27 mmol/L Normal 20-31 [facility] Comment on above: Performed By: #### C DP, BMP #### [facility] [address] [place] [address] [employer] Supervisor: lSoan Williamson DO Creatinine [Mass/Vol] 0.83 mg/dL Normal 0.50-0.90 [facility] Comment on above: Performed By: #### C DP, BMP #### [facility] [address] [place] [address] [employer] Supervisor: Sloan Williamson DO GFR, Amer >60 Normal >60 [facility] Comment on above: Performed By: #### C DP, BMP #### [facility] [facility] [place] [address] [employer] Supervisor: Sloan Williamson DO GFR,non Amer >60 Normal >60 [facility] Comment on above: Performed By: #### C DP, BMP #### [facility] [address] [place] [address] [employer] Supervisor: Sloan Williamson DO Glucose [Mass/Vol] 106 mg/dL High 70-99 [facility] Comment on above: Performed By: #### C DP, BMP #### [facility] [address] [facility] [place] [address] [employer] Supervisor: Sloan Williamson DO Potassium [Moles/Vol] 3.9 mmol/L Normal 3.7-5.3 [facility] Comment on above: Performed By: #### C DP, BMP #### [facility] [address] [place] [address] [employer] Supervisor: Sloan Williamson DO Sodium [Moles/Vol] 138 mmol/L Normal 135-144 [facility] Comment on above: Performed By: #### C KELSI, BMP #### [facility] [address] [place], [place] [address] [place] [address] [employer] Supervisor: Sloan Williamson DO Urea nitrogen [Mass/Vol] 14 mg/dL Normal 8-23 [facility] Comment on above: Performed By: #### C KELSI, BMP #### [facility] [address] [place] [address]. [place] [address] [employer] Supervisor: Sloan Williamson DO BUN/CRE Ratio NOT REPORTED Normal 9-20 [facility] Comment on above: Performed By: #### C KELSI, BMP #### [facility] [address] [place], [place] [address] [place] [address] [employer] Supervisor: Sloan Williamson DO Staging: NOT REPORTED Normal [facility] Comment on above: Performed By: #### C KELSI, BMP #### [facility] [address] [place], [place] [address] [place] [address] [employer] Supervisor: Sloan Williamson DO CBC with Diffon 02-27-2020 Abs. Basophil 0.10 k/uL Normal 0.0-0.2 [facility] Comment on above: Performed By: #### C KELSI, BMP #### [facility] [address] [place], [place] [address] [place] [address] [employer] Supervisor: Sloan Williamson DO Abs.Neutrophil (Seg) 8.00 k/uL Normal 1.3-9.1 [facility] Comment on above: Performed By: #### C DP, BMP #### [facility] [place] [address] [employer] Supervisor: Sloan Williamson DO Basophils/100 WBC (Bld) 1 % Normal 0-2 [facility] Comment on above: Performed By: #### C DP, BMP #### [facility] [address] [place] [address] [employer] Supervisor: Sloan Williamson DO Eosinophils (Bld) [#/Vol] 0.10 10*3/uL Normal 0.0-0.4 [facility] Comment on above: Performed By: #### C DP, BMP #### [facility] [address] [place] [address] [employer] Supervisor: Sloan Williamson DO Eosinophils/100 WBC (Bld) 1 % Normal 0-4 [facility] Comment on above: Performed By: #### C DP, BMP #### [facility] [address] [place] [address] [employer] Supervisor: Sloan Williamson DO Erythrocyte distribution width (RBC) [Ratio] 13.6 % Normal 11.5-14.9 [facility] Comment on above: Performed By: #### C DP, BMP #### [facility] [address] [place] [address] [employer] Supervisor: Sloan Williamson DO Hematocrit (Bld) [Volume fraction] 36.9 % Normal 36-46 [facility] Comment on above: Performed By: #### C DP, BMP #### [facility] [address] [place] [address] [employer] Supervisor: Sloan Williamson DO Hemoglobin (Bld) [Mass/Vol] 12.3 g/dL Normal 12.0-16.0 [facility] Comment on above: Performed By: #### C DP, BMP #### [facility] [address] [place] [address] [employer] Supervisor: Sloan Williamson DO Lymphocytes (Bld) [#/Vol] 0.50 10*3/uL Low 1.0-4.8 [facility] Comment on above: Performed By: #### C DP, BMP #### [facility] [address] [place] [address] [employer] Supervisor: Sloan Williamson DO Lymphocytes/100 WBC (Bld) 6 % Low 24-44 [facility] Comment on above: Performed By: #### C KELSI, BMP #### [facility] [place] [address] [employer] Supervisor: Sloan Williamson DO MCH (RBC) [Entitic mass] 30.4 pg Normal 26-34 [facility] Comment on above: Performed By: #### C KELSI, BMP #### [facility] [address] [place] [address] [employer] Supervisor: Sloan Williamson DO MCHC (RBC) [Mass/Vol] 33.3 g/dL Normal 31-37 [facility] Comment on above: Performed By: #### C KELSI, BMP #### [facility] [address] [place] [address] [employer] Supervisor: Sloan Williamson DO MCV (RBC) [Entitic vol] 91.2 fL Normal 80-100 [facility] Comment on above: Performed By: #### C DP, BMP #### [facility] [address] [place] [address] [employer] Supervisor: Sloan Williamson DO Monocytes (Bld) [#/Vol] 0.40 10*3/uL Normal 0.1-1.3 [facility] Comment on above: Performed By: #### C DP, BMP #### [facility] [address] [place] [address] [employer] Supervisor: Sloan Williamson DO Monocytes/100 WBC (Bld) 4 % Normal 1-7 [facility] Comment on above: Performed By: #### C DP, BMP #### [facility] [address] [place] [address] [employer] Supervisor: Sloan Williamson DO Neutrophil (Seg) 88 % High 36-66 [facility] Comment on above: Performed By: #### C DP, BMP #### [facility] [place] [address] [employer] Supervisor: Sloan Williamson DO Platelet mean volume (Bld) [Entitic vol] 8.5 fL Normal 6.0-12.0 [facility] Comment on above: Performed By: #### C DP, BMP #### [facility] [address] [place] [address] [employer] Supervisor: Sloan Williamson DO Platelets (Bld) [#/Vol] 228 10*3/uL Normal 150-450 [facility] Comment on above: Performed By: #### C DP, BMP #### [facility] [address] [place] [address] [employer] Supervisor: Sloan Williamson DO RBC (Bld) [#/Vol] 4.04 10*6/uL Normal 4.0-5.2 [facility] Comment on above: Performed By: #### C DP, BMP #### [facility] [place] [address] [employer] Supervisor: Sloan Williamson DO WBC (Bld) [#/Vol] 9.0 10*3/uL Normal 3.5-11.0 [facility] Comment on above: Performed By: #### C DP, BMP #### [facility] [place] [address] [employer] Supervisor: Sloan Williamson DO Abs.Imm.Granulocyte NOT REPORTED Normal 0.00-0.30 [facility] Comment on above: Performed By: #### C DP, BMP #### [facility] [address] [place] [address] [employer] Supervisor: Sloan Williamson DO Auto Diff Performed NOT REPORTED Normal [facility] Comment on above: Performed By: #### C DP, BMP #### [facility] [address] [place] [address] [employer] Supervisor: Sloan Williamson DO Immature granulocytes (Bld) [#/Vol] NOT REPORTED Normal 0 [facility] Comment on above: Performed By: #### C DP, BMP #### [facility] [address] [place] [address] [employer] Supervisor: Sloan Williamson DO NRBC Automated NOT REPORTED Normal [facility] Comment on above: Performed By: #### C DP, BMP #### [facility] [address] [place] [address] [employer] Supervisor: Sloan Williamson DO Platelets (Bld) [#/Vol] NOT REPORTED Normal [facility] Comment on above: Performed By: #### C DP, BMP #### [facility] [place] [address] [employer] Supervisor: Sloan Williamson DO RBC morphology finding Nom (Bld) NOT REPORTED Normal [facility] Comment on above: Performed By: #### C DP, BMP #### [facility] [place] [address] [employer] Supervisor: Sloan Williamson DO WBC Morphology NOT REPORTED Normal [facility] Comment on above: Performed By: #### C DP, [facility] #### [facility] [address] [place] [address] [employer] Supervisor: Sloan Williamson DO CT ABDOMEN PELVIS W IV CONTR Eda 02-27-2020 CT ABDOMEN PELVIS W IV CONTRAST EXAMINATION: CT OF THE ABDOMEN AND PELVIS WITH CONTRAST 02/27/2020 12:50 am TECHNIQUE: CT of the abdomen and pelvis was performed with the administration of intravenous contrast. Multiplanar reformatted images are provided for review. Dose modulation, iterative reconstruction, and/or weight based adjustment of the mA/kV was utilized to reduce the radiation dose to as low as reasonably achievable. COMPARISON: None. HISTORY: ORDERING SYSTEM PROVIDED HISTORY: rectal prolapse and fecal retention TECHNOLOGIST PROVIDED HISTORY: rectal prolapse and fecal retention Reason for Exam: Rectal bleeding since last per pt Acuity: Acute Type of Exam: Initial Relevant Medical/Surgical History: no known surgeries to area of interest FINDINGS: Lower Chest: Minimal bibasilar dependent atelectasis. Moderate-sized hiatal hernia. Organs: Multiple calcified granulomas in the spleen. Unremarkable liver, pancreas, adrenals, and right kidney. A subcentimeter cortical hypodensity in the anterior aspect of the left kidney, probably a simple cyst but too small to characterize. GI/Bowel: Status post cholecystectomy. No biliary dilatation. Appendix not seen probably removed. Moderate to large amount of retained stool in the colon with no evidence of bowel obstruction. Colonic diverticulosis. No acute diverticulitis. Pelvis: Rectal prolapse. Status posthysterectomy. No adnexal mass. Grossly intact urinary bladder.. Peritoneum/Retroper itoneum: No free air or free fluid. No adenopathy. Vascular calcification with no abdominal aortic aneurysm. Status post ventral abdominal wall herniorrhaphy. A loop of small bowel abuts the hernia mesh with no definite recurrent hernia. Bones/Soft Tissues: Old compression fracture of L3, status post vertebroplasty. Multilevel thoracolumbar spondylosis. Osteoarthritis of the bilateral hip joints. Diffuse osteopenia. IMPRESSION: Moderate to large amount of retained stool in the colon with no evidence of bowel obstruction. Rectal prolapse. Other chronic findings as above. Interpreted by: Denilson Aceves MD Signed by: Denilson Aceves MD 02/27/20 Final result Normal [facility] Hematologyon 02-27-2020 Basophils (Bld) [#/Vol] 0.10 10*3/uL [place] Basophils/100 WBC (Bld) 1 % 0 - 2 % [place] Eosinophils (Bld) [#/Vol] 0.10 10*3/uL [place] Eosinophils/100 WBC (Bld) 1 % 0 - 4 % [place] Hematocrit (Bld) [Volume fraction] 36.9 % 36 - 46 % [place] Hemoglobin (Bld) [Mass/Vol] 12.3 g/dL 12 - 16 g/dL [place] Lymphocytes (Bld) [#/Vol] 0.50 10*3/uL [place] Lymphocytes/100 WBC (Bld) 6 % Low 24 - 44 % [place] MCH (RBC) [Entitic mass] 30.4 pg 26 - 34 pg [place] MCV (RBC) [Entitic vol] 91.2 fL 80 - 100 fL [place] Monocytes (Bld) [#/Vol] 0.40 10*3/uL [place] Monocytes/100 WBC (Bld) 4 % 1 - 7 % [place] Platelets (Bld) [#/Vol] NOT REPORTED [place] Platelets (Bld) [#/Vol] 228 10*3/uL [place] RBC (Bld) [#/Vol] 4.04 10*6/uL 4 - 5.2 m/uL [place] RBC morphology finding Nom (Bld) NOT REPORTED [place] WBC (Bld) [#/Vol] NOT REPORTED per 100 WBC [place] WBC (Bld) [#/Vol] 9.0 10*3/uL [place] Metabolic Panelon 02-27-2020 Anion gap [Moles/Vol] 10 mmol/L 9 - 17 mmol/L [place] Calcium [Mass/Vol] 9.6 mg/dL 8.6 - 10. 4 mg/dL [place] Chloride [Moles/Vol] 101 mmol/L 98 - 107 mmol/L [place] CO2 [Moles/Vol] 27 mmol/L 20 - 31 mmol/L [place] Creatinine [Mass/Vol] 0.83 mg/dL 0.5 - 0.9 mg/dL [place] GFR/1.73 sq M predicted among non-blacks MDRD (S/P/Bld) [Vol rate/Area] [place] Comment on above: Average GFR for 70 o r more years old: 75 mL/min/1.73sq m Chronic Kidney Disease: <60 mL/min/1.73sq m Kidney failure: <15 mL/min/1.73sq m eGFR calculated using average adult body mass. Additional eGFR calculator available at: http://www.COIN[employer]/multiple_crcl_2012.htm GFR/1.73 sq M predicted among non-blacks MDRD (S/P/Bld) [Vol rate/Area] NOT REPORTED [place] Glucose [Mass/Vol] 106 mg/dL High 70 - 99 mg/dL [place] Potassium [Moles/Vol] 3.9 mmol/L 3.7 - 5.3 mmol/L [place] Sodium [Moles/Vol] 138 mmol/L 135 - 144 mmol/L [place] Urea nitrogen [Mass/Vol] 14 mg/dL 8 - 23 mg/dL [place] Otheron 02-27-2020 EXAMINATION: CT OF THE ABDOMEN AND PELVIS WITH CONTRAST 02/27/2020 12:50 am TECHNIQUE: CT of the abdomen and pelvis was performed with the administration of intravenous contrast. Multiplanar reformatted images are provided for review. Dose modulation, iterative reconstruction, and/or weight based adjustment of the mA/kV was utilized to reduce the radiation dose to as low as reasonably achievable. COMPARISON: None. HISTORY: ORDERING SYSTEM PROVIDED HISTORY: rectal prolapse and fecal retention TECHNOLOGIST PROVIDED HISTORY: rectal prolapse and fecal retention Reason for Exam: Rectal bleeding since last per pt Acuity: Acute Type of Exam: Initial Relevant Medical/Surgical History: no known surgeries to area of interest FINDINGS: Lower Chest: Minimal bibasilar dependent atelectasis. Moderate-sized hiatal hernia. Organs: Multiple calcified granulomas in the spleen. Unremarkable liver, pancreas, adrenals, and right kidney. A subcentimeter cortical hypodensity in the anterior aspect of the left kidney, probably a simple cyst but too small to characterize. GI/Bowel: Status post cholecystectomy. No biliary dilatation. Appendix not seen probably removed. Moderate to large amount of retained stool in the colon with no evidence of bowel obstruction. Colonic diverticulosis. No acute diverticulitis. Pelvis: Rectal prolapse. Status posthysterectomy. No adnexal mass. Grossly intact urinary bladder.. Peritoneum/Retroper itoneum: No free air or free fluid. No adenopathy. Vascular calcification with no abdominal aortic aneurysm. Status post ventral abdominal wall herniorrhaphy. A loop of small bowel abuts the hernia mesh with no definite recurrent hernia. Bones/Soft Tissues: Old compression fracture of L3, status post vertebroplasty. Multilevel thoracolumbar spondylosis. Osteoarthritis of the bilateral hip joints. Diffuse osteopenia. [place] Moderate to large amount of retained stool in the colon with no evidence of bowel obstruction. Rectal prolapse. Other chronic findings as above. [place], [place] Emmanuel, Mhpn Incoming Radiant Results From [employer] - 02/27/2020 1:35 AM EDT EXAMINATION: CT OF THE ABDOMEN AND PELVIS WITH CONTRAST 02/27/2020 12:50 am TECHNIQUE: CT of the abdomen and pelvis was performed with the administration of intravenous contrast. Multiplanar reformatted images are provided for review. Dose modulation, iterative reconstruction, and/or weight based adjustment of the mA/kV was utilized to reduce the radiation dose to as low as reasonably achievable. COMPARISON: None. HISTORY: ORDERING SYSTEM PROVIDED HISTORY: rectal prolapse and fecal retention TECHNOLOGIST PROVIDED HISTORY: rectal prolapse and fecal retention Reason for Exam: Rectal bleeding since last per pt Acuity: Acute Type of Exam: Initial Relevant Medical/Surgical History: no known surgeries to area of interest FINDINGS: Lower Chest: Minimal bibasilar dependent atelectasis. Moderate-sized hiatal hernia. Organs: Multiple calcified granulomas in the spleen. Unremarkable liver, pancreas, adrenals, and right kidney. A subcentimeter cortical hypodensity in the anterior aspect of the left kidney, probably a simple cyst but too small to characterize. GI/Bowel: Status post cholecystectomy. No biliary dilatation. Appendix not seen probably removed. Moderate to large amount of retained stool in the colon with no evidence of bowel obstruction. Colonic diverticulosis. No acute diverticulitis. Pelvis: Rectal prolapse. Status posthysterectomy. No adnexal mass. Grossly intact urinary bladder.. Peritoneum/Retroper itoneum: No free air or free fluid. No adenopathy. Vascular calcification with no abdominal aortic aneurysm. Status post ventral abdominal wall herniorrhaphy. A loop of small bowel abuts the hernia mesh with no definite recurrent hernia. Bones/Soft Tissues: Old compression fracture of L3, status post vertebroplasty. Multilevel thoracolumbar spondylosis. Osteoarthritis of the bilateral hip joints. Diffuse osteopenia. IMPRESSION: Moderate to large amount of retained stool in the colon with no evidence of bowel obstruction. Rectal prolapse. Other chronic findings as above. [place] Bun/Cre Ratio NOT REPORTED [place] GFR >60 >60 mL/min [place] GFR Non- >60 >60 mL/min [place] Interpretation and review of laboratory results Abnormal [place] Differential Type NOT REPORTED [place] Erythrocyte distribution width (RBC) [Ratio] 13.6 % 11.5 - 14.9 % [place] Immature granulocytes (Bld) [#/Vol] NOT REPORTED [place] Interpretation and review of laboratory results Abnormal [place] MCHC (RBC) [Mass/Vol] 33.3 g/dL 31 - 37 g/dL [place] Platelet mean volume (Bld) [Entitic vol] 8.5 fL 6 - 12 fL [place] Segmented neutrophils/100 WBC (Bld) 88 % High 36 - 66 % [place] Segs Absolute 8.00 [place] WBC Morphology NOT REPORTED [place], [place] Vital Signs Date Time Vital Sign Value Performing Clinician Facility 11-23-2021 12:45-0400 Body height 152.4 cm Jewel Rodriguez Other [facility] Other 11-23-2021 12:45-0400 Body mass index (BMI) [Ratio] 21.87 kg/m2 Jewle Rodriguez Other [facility] Other 11-23-2021 12:45-0400 Body weight 50.8 kg Jewel Rodriguez Other [facility] Other 09-26-2021 14:00-0400 Body height 152.4 cm Jewel Rodriguez Other [facility] Other 09-26-2021 14:00-0400 Body mass index (BMI) [Ratio] 21.87 kg/m2 Jewel Rodriguez Other [facility] Other 09-26-2021 14:00-0400 Body weight 50.8 kg Jewel Rodriguez Other [facility] Other 09-26-2021 14:00-0400 Diastolic blood pressure 64 mm[Hg] Jewel Rodriguez Other [facility] Other 09-26-2021 14:00-0400 Systolic blood pressure 118 mm[Hg] Jewel Rodriguez Other [facility] Other 03-24-2020 08:24-0500 Body Temperature 97.81 [degF] [facility]bed [employer] [facility] [place] 03-24-2020 08:24-0500 BP Diastolic 87 mm[Hg] Abed [facility] [employer] [place] , [place] 03-24-2020 08:24-0500 BP Systolic 132 mm[Hg] Abed [facility] [employer] [place] , [place] 03-24-2020 08:24-0500 Pulse (Heart Rate) 97 /min Abed Hetal [employer] [place], [place] 03-24-2020 08:24-0500 Pulse Oximetry 96 % [facility] [place] , [place] 03-24-2020 08:24-0500 Respiratory Rate 18 /min [facility] [place] 03-23-2020 10:58-0500 BMI (Body Mass Index) 24.41 kg/m2 [facility] [place] 03-23-2020 10:58-0500 Body weight 56.7 kg [facility] [place] 03-23-2020 10:58-0500 Height 152.4 cm [facility] [place] 02-28-2020 07:37-0400 Body Temperature 98.2 [degF] Carlos Manuel [facility], [place] 02-28-2020 07:37-0400 BP Diastolic 67 mm[Hg] [facility] , [place] 02-28-2020 07:37-0400 BP Systolic 165 mm[Hg] Carlos Manuel Leo [facility] , [place] 02-28-2020 07:37-0400 Pulse (Heart Rate) 73 /min [facility], [place] 02-28-2020 07:37-0400 Pulse Oximetry 97 % Carlos Manuel [facility] , [place] 02-28-2020 07:37-0400 Respiratory Rate 16 /min Carlos Manuel Leo [facility], [place] 02-28-2020 05:43-0400 BMI (Body Mass Index) 25.9 kg/m2 Carlos Manuel Wong [facility], [place] 02-28-2020 05:43-0400 Body weight 60.15 kg Carlos Manuel Wong [facility] , [place] 02-27-2020 06:15-0400 Height 152.4 cm [facility] , [place] 02-27-2020 04:38-0400 Body Temperature 98.71 [degF] [facility] [place] 02-27-2020 04:38-0400 BP Diastolic 81 mm[Hg] [facility] , [place] 02-27-2020 04:38-0400 BP Systolic 180 mm[Hg] [facility] , [place] 02-27-2020 04:38-0400 Pulse (Heart Rate) 76 /min [facility], [place] 02-27-2020 04:38-0400 Pulse Oximetry 95 % [facility] [place] , [place] 02-27-2020 04:38-0400 Respiratory Rate 17 /min [facility] [place] Encounters Encounter Date Encounter Type Care Provider Facility Start: 06-30-2023 Refill Milvia Haas [facility] Work Phone: [facility] Comment on above: Other chronic pain ( Primary Dx) Start: 06-28-2023 Bamboo flowsheet Milvia Boogiemraysez [facility] Work Phone: [facility] Start: 06-28-2023 Bamboo flowsheet Milvia Davisz [facility] Work Phone: [facility] Start: 06-28-2023 Patient encounter procedure Milvia Boogiebal [facility] Work Phone: [facility] Start: 06-28-2023 End: 06-28-2023 ambulatory MILVIA SAMINA Not Available Start: 09-26-2022 End: 09-26-2022 ambulatory SURGERY MANAGER MILVIA KEAGANBAL Facility:[facility] Start: 09-14-2022 End: 09-15-2022 ambulatory SURGERY MANAGER MILVIA KEAGANMARYSEZ Facility:[facility] Start: 06-13-2022 End: 06-14-[address] TAM PERDOMO . Facility:[facility] Start: 04-05-2022 Office outpatient vi sit 15 minutes Jewel Rodriguez [facility] Start: 04-05-2022 End: 04-05-2022 ambulatory NON STAFF [facility] Work Phone: Start: 04-05-2022 End: 04-05-2022 Patient encounter procedure [facility] Start: 03-16-2022 End: 03-17-[address] TAM PERDOMO . Facility:[facility] Start: 01-04-2022 Office outpatient vi sit 15 minutes Jewel Rodriguez [facility] Start: 01-04-2022 End: 01-04-2022 ambulatory Jewel Rodriguez [facility] Other Start: 01-04-2022 End: 01-04-2022 Patient encounter procedure [facility] Start: 12-14-2021 End: 12-15-[address] TAM PERDOMO . Facility: Start: 11-23-2021 Postop follow up vis it related to original px Jewel Jennifer [facility] Start: 11-23-2021 End: 11-23-2021 ambulatory [facility] Other Start: 11-23-2021 End: 11-23-2021 Patient encounter procedure [facility] Start: 10-26-2021 Postop follow up vis it related to original px Jewel Rodriguez [facility] Start: 10-26-2021 End: 10-26-2021 ambulatory [facility] Other Start: 10-26-2021 End: 10-26-2021 Patient encounter procedure [facility] Start: 09-26-2021 End: 09-30-2021 Evaluation and management of inpatient NON STAFF Facility:[facility] Start: 09-26-2021 End: 09-26-2021 ambulatory [facility] Other Start: 09-26-2021 Encounter for other preprocedural examination Jewel Rodriguez [facility] Start: 09-26-2021 Office outpatient ne w 45 minutes Jewel Rodriguez [facility] Start: 03-23-2020 End: 03-24-2020 Patient encounter procedure MOHSEN JONES [facility] Start: 03-23-2020 End: 03-24-2020 Subsequent hospital visit by physician Verenice Phipps Phone: [facility] Comment on above: Post-op pain (Primar y Dx) Start: 03-19-2020 End: 03-24-2020 Patient encounter procedure SELMA MIRANDA [facility] Start: 03-19-2020 End: 03-23-2020 Subsequent hospital visit by physician [facility] Covid19 Pat Screening Schedule [facility] Pre-Admit Testing Start: 02-27-2020 End: 02-28-2020 Evaluation and management of inpatient COLE MENENDEZ [facility] Start: 02-27-2020 End: 02-28-2020 Evaluation and management of inpatient Carlos Manuel Leo Work Phone: [facility] Start: 02-27-2020 End: 02-27-2020 Emergency department patient visit MOHSEN JONES [facility] Start: 02-26-2020 End: 02-27-2020 Emergency department patient visit Caridad Pringle Work Phone: [facility] ED Procedures Date Procedure Procedure Detail Performing Clinician Start: 04-05-2022 Plain X-ray of right humerus Start: 01-04-2022 Plain X-ray of right humerus Start: 11-23-2021 Plain X-ray of right humerus Start: 10-26-2021 Plain X-ray of right shoulder Start: 09-27-2021 Antibody screen Jewel Rodriguez Comment on above: Order Comment: EVA PUT FLUIDS ON HOLD SO I COULD DRAW BLOOD, AGA ABOVE IV , I DID 2 RED TOP WASTE THEN AGA THE BLOOD BANK,PLS. 1237,09/27/2021.Comment 2 UNITS ON HOLD FOR OR [facility] now? N Result Comment: PERF ORMED BY: [facility] [address] [place] [address] PATHOLOGIST SOCIAL WORK MANAGER JOESPH ZIEGLER M.D. Start: 03-24-2020 DISCHARGE PATIENT EUGEN E MENENDEZ Start: 03-24-2020 DISCHARGE PATIENT EUGEN E MENENDEZ Start: 03-24-2020 INITIATE OXYGEN THER APY PROTOCOL COLE MENENDEZ Start: 03-24-2020 INTAKE AND OUTPUT EUGEN E MENENDEZ Start: 03-23-2020 DIET GENERAL COLE MENENDEZ Start: 03-23-2020 FULL CODE COLE MENENDEZ Start: 03-23-2020 INITIATE OXYGEN THER APY PROTOCOL COLE MENENDEZ Start: 03-23-2020 INTAKE AND OUTPUT EUGEN E MENENDEZ Start: 03-23-2020 NOTIFY PHYSICIAN (SPECIFY) COLE MENENDEZ Start: 03-23-2020 REASON FOR NO MECHAN ICAL VTE PROPHYLAXIS COLE MENENDEZ Start: 03-23-2020 SITZ BATH COLE MENENDEZ Start: 03-23-2020 TELEMETRY MONITORING EU GENE MENENDEZ Start: 03-23-2020 VITAL SIGNS COLE MENENDEZ Start: 03-23-2020 PATIENT STATUS (FROM ED OR OR/PROCEDURAL) COLE MENENDEZ Start: 03-23-2020 TRANSFER PATIENT COLE MENNEDEZ Start: 03-23-2020 Level iv surg pathol ogy gross&microscopic exam COLE MENENDEZ Start: 03-23-2020 Ecg routine ecg w/le ast 12 lds w/i&r COLE MENENDEZ Start: 03-23-2020 EKG REPORT COLE MENENDEZ Start: 03-23-2020 End: 03-23-2020 Unlisted procedure rectum Abed E Hetal Work Phone: Start: 03-23-2020 Ecg routine ecg w/le ast 12 lds w/i&r Vitaliyfrances Deal Work Phone: Start: 03-23-2020 EKG REPORT Hpf Scanni ng Start: 03-23-2020 Level iv surg pathol ogy gross&microscopic exam COLE MENENDEZ Start: 03-20-2020 COVID-19 AMBULATORY STACY S MIRANDA Start: 03-19-2020 COVID-19 AMBULATORY Stacy s E Miranda Work Phone: Start: 03-18-2020 COVID-19 SELMA JAURE SEDRICK Start: 02-28-2020 DISCHARGE PATIENT EUGEN E MENENDEZ Start: 02-28-2020 DIET GENERAL COLE MENENDEZ Start: 02-28-2020 INITIATE OXYGEN THER APY PROTOCOL COLE MENENDEZ Start: 02-28-2020 Assay of amylase COLE MENENDEZ Start: 02-28-2020 Assay of lipase COLE MENENDEZ Start: 02-28-2020 Assay of magnesium EUGE NE MENENDEZ Start: 02-28-2020 Assay of phosphorus inorganic COLE MENENDEZ Start: 02-28-2020 Blood count complete auto&auto difrntl wbc COLE MENENDEZ Start: 02-28-2020 Blood count complete automated COLE MENENDEZ Start: 02-28-2020 Assay of amylase Maliss a D Delgrosso Work Phone: Start: 02-28-2020 Assay of lipase Vicky D Delgrosso Work Phone: Start: 02-28-2020 Assay of magnesium Claudette ssa D Delgrosso Work Phone: Start: 02-28-2020 Assay of phosphorus inorganic Vicky D Delgrosso Work Phone: Start: 02-28-2020 Blood count complete auto&auto difrntl wbc Vicky Lau Work Phone: Start: 02-28-2020 Blood count complete automated Vicky Lau Work Phone: Start: 02-28-2020 DAILY WEIGHTS COLE HS U Start: 02-28-2020 INTAKE AND OUTPUT EUGEN E MENENDEZ Start: 02-27-2020 SOAP SUDS ENEMA COLE MENENDEZ Start: 02-27-2020 INITIATE OXYGEN THER APY PROTOCOL COLE MENENDEZ Start: 02-27-2020 CATHETER REMOVAL COLE MENENDEZ Start: 02-27-2020 FULL CODE COLE MENENDEZ Start: 02-27-2020 INITIATE OXYGEN THER APY PROTOCOL COLE MENENDEZ Start: 02-27-2020 INSERT CORONADO CATHETER E UGENE MENENDEZ Start: 02-27-2020 INTAKE AND OUTPUT EUGEN E MENENDEZ Start: 02-27-2020 IP CONSULT TO [facility] SURGERY COLE MENENDEZ Start: 02-27-2020 MISCELLANEOUS NURSIN G CARE ORDER (SPECIFY) COLE MENENDEZ Start: 02-27-2020 NOTIFY PHYSICIAN (SPECIFY) COLE MENENDEZ Start: 02-27-2020 PLACE INTERMITTENT PNEUMATIC COMPRESSION DEVICE COLE MENENDEZ Start: 02-27-2020 VITAL SIGNS COLE MENENDEZ Start: 02-27-2020 PATIENT STATUS (DIRECT) COLE MENENDEZ Start: 02-27-2020 INSERT CORONADO CATHETER L UIS MIRANDA Start: 02-27-2020 Ct abdomen & pelvis w/contrast material SELMA MIRANDA Start: 02-27-2020 Basic metabolic pane l calcium total SELMA MIRANDA Start: 02-27-2020 Blood count complete auto&auto difrntl wbc SELMA MIRANDA Start: 02-27-2020 BLADDER SCAN SELMA JAURE SEDRICK Start: 02-27-2020 Urnls dip stick/tabl et rgnt auto w/o microscopy SELMA MIRANDA Start: 02-27-2020 Ct abdomen & pelvis w/contrast material Caridad Pringle Work Phone: Start: 02-27-2020 Basic metabolic pane l calcium total Caridad Pringle Work Phone: Start: 02-27-2020 Blood count complete auto&auto difrntl wbc Caridad Pringle Work Phone: Plan of Treatment Date Care Activity Detail Author Start: 06-28-2024 Medicare Annual Wellness (AWV) Medicare Annual Wellness (AWV) [facility] Start: 01-03-2024 End: 01-03-2024 Patient encounter procedure 01/03/2024 1:00 PM EDT Office Visit [facility] [address] [place] [id number] Milvia Haas, ANTWAN [address] [place] [id number] [facility] Start: 11-18-2023 Influenza vaccination Influenza Vacc ine (#1) [facility] Comment on above: Postponed from 01/19 (Other Patient Reasons) Start: 01-19-2023 Influenza vaccination Influenza Vacc ine (#1) [facility] Start: 02-26-2020 Annual Wellness Visi t (AWV) Annual Wellness Visit (AWV) [place] Start: 01-20-2020 Influenza vaccination Flu vaccine (# 1) [place] Start: 2002 Pneumococcal 65+ yea rs Vaccine (1 of 1 - PPSV23) Pneumococcal 65+ years Vaccine (1 of 1 - PPSV23) [place] Start: 1992 Screening for osteoporosis DEXA (modify frequency per FRAX score) [place] Start: 1987 Shingles Vaccine (1 of 2) Shingles Vaccine (1 of 2) [place] Start: 1956 DTaP/Tdap/Td vaccine (1 - Tdap) DTaP/Tdap/Td vaccine (1 - Tdap) [place] Start: 1947 Lipid panel Lipid screen [place], [place] Start: 1937 TSH Qn TSH testing [place], [place] End: 03-18-2020 COVID-19 COVID-19 Lab Routine One Time for 1 Occurrences starting 03/18/2020 until [facility]: One Time for 1 Occur rences starting 03/18/2020 until 03/18/2020 Intermittent pulse oximetry Pulse Oximetry Spot Check Respiratory Care Routine As Needed until discontinued starting [facility]/27[facility]2020 [facility] Comment on above: As Needed until disc ontinued starting 02/27/2020 Oxygen therapy [[facility] Data Set] [facility] [place] Comment on above: Daily until disconti nued starting 02/27/2020 Daily until disconti nued starting 03/23/2020 Surgical Pathology Surgical Path ology Lab Routine Release Upon Ordering for 1 Occurrences starting 03/23/2020 [facility] [place] Comment on above: Release Upon Orderin g for 1 Occurrences starting 03/23/2020 End: 03-24-2020 Surgical Pathology Surgical Pathology Lab Routine Once for 1 Occurrences starting 03/24/2020 until 03/24/2020 [facility] [place] Comment on above: Once for 1 Occurrenc es starting 03/24/2020 until 03/24/2020 End: 02-26-2020 Urinalysis Reflex to Culture Urinalysis Reflex to Culture Lab Routine One Time for 1 Occurrences starting 02/26/2020 until 02/26/2020 [facility] [place] Comment on above: One Time for 1 Occur rences starting 02/26/2020 until 02/26/2020 Immunizations Immunization Date Immunization Notes Care Provider Samaria tatum 04-04-2019 influenza virus vacc ine, unspecified formulation Milvia Samina [employer]OP [employer] Work Phone: [facility] 02-08-2017 influenza, high dose seasonal, preservative-free Milvia Aichholz [employer] Work Phone: [facility] 03-08-2016 influenza, high dose seasonal, preservative-free Milvia Aichholz [employer] Work Phone: [facility] 03-08-2016 pneumococcal polysaccharide vaccine, 23 valent Milvia Keaganholz [employer]OP [employer]OPER Work Phone: [facility] Payers Date Payer Category Payer Medicare ANTH MEDICARE ADVANTAGE ANTH MEDICARE ADVANTAGE [id number] 2023-Present [address] [place] [address] [id number] 2021 Medicare [id number] 2021 Self-pay [id number] 1959 Medicare [id number] .[id number] 1935 Unknown [id number] 2.16.840.1.884322.3.579.2.176 1937 Unknown [id number] 2.16.840.1.547571.3.579.2.176 1937 Unknown [id number] 2.16.840.1.435787.3.579.2.177 1937 Unknown [id number] 2.16.840.1.452896.3.579.2.177 1937 Unknown [id number] 2.16.840.1.097274.3.579.2.593 1937 Unknown [id number] 2.16.840.1.598953.3.579.2.593 1937 Unknown [id number] 2.16.840.1.777028.3.579.2.593 1937 Unknown [id number] 2.16.840.1.503879.3.579.2.593 1937 Unknown [id number] 2.16.840.1.758965.3.579.2.593 1937 Unknown [id number] 2.16.840.1.633892.3.579.2.125 9 Unknown [id number] 2.16.840.1.576627.3.579.2.531 Unknown [id number] 2.16.840.1.540186.3.579.2.531 Unknown [id number] 2.16840.1.233897.3.579.2.531 Unknown [id number] 2.16840.1.999412.3.579.2.531 Unknown [id number] 2.16840.1.490905.3.579.2.531 Unknown [id number] 2.0.1.517878.3.579.2.531 Social History Date Type Detail Facility Start: 02-26-2020 End: 06-17-2023 Tobacco smoking status NHIS Never smoker [facility] Start: 02-26-2020 End: 06-28-2023 Alcohol intake Ex-drinker (finding) [employer] Start: 1935 [facility] Exposure to SARS-CoV -2 (event) Not sure [employer] Start: 03-23-2020 End: 03-24-2020 Tobacco use and exposure Never used [employer] [facility] [employer] Start: 06-17-2023 End: 06-28-2023 Sex Assigned At [facility] Start: 1935 Sex Assigned At Female F [facility] Start: 06-17-2023 End: 06-28-2023 History of Social function [facility] Start: 06-17-2023 Alcohol Comment coffee 2-3 cup s per day [facility] Within the last year , have you been afraid of your partner or ex-partner? No [facility] Are you now , , , , never or living with a partner? [facility] How often to you hav e a drink containing alcohol? Never [facility] How many standard dr inks containing alcohol do you have on a typical day? Patient does not drink [facility] Do you feel stress - tense, restless, nervous, or anxious, or unable to sleep at night because your mind is troubled all the time - these days [OSQ] Only a little [facility] (I/We) worried wheehsan er (my/our) food would run out before (I/we) got money to buy more. Never true [facility] Medical Equipment Procedure Code Equipment Code Equipment Origin al Text Equipment Identifier Dates Open reduction and internal fixation of fracture of humerus Orthopaedic bone screw, non-bioabsorbable, non-sterile ()[id number] FDA Start: 09-27-2021 Open reduction and internal fixation of fracture of humerus Orthopaedic bone screw, non-bioabsorbable, non-sterile ()[id number] FDA Start: 09-27-2021 Open reduction and internal fixation of fracture of humerus Orthopaedic bone screw, non-bioabsorbable, non-sterile ()[id number] FDA Start: 09-27-2021 Open reduction and internal fixation of fracture of humerus Orthopaedic bone screw, non-bioabsorbable, non-sterile ()[id number] FDA Start: 09-27-2021 Open reduction and internal fixation of fracture of humerus Orthopaedic bone screw, non-bioabsorbable, non-sterile ()[id number] FDA Start: 09-27-2021 Open reduction and internal fixation of fracture of humerus Orthopaedic bone screw, non-bioabsorbable, non-sterile ()[id number] FDA Start: 09-27-2021 Open reduction and internal fixation of fracture of humerus Orthopaedic fixation plate, non-bioabsorbable, sterile ()[id number] FDA Start: 09-27-2021 Open reduction and internal fixation of fracture of humerus Orthopaedic fixation plate, non-bioabsorbable, sterile ()[id number] FDA Start: 09-27-2021 Open reduction and internal fixation of fracture of humerus Orthopaedic bone screw, non-bioabsorbable, non-sterile ()[id number] FDA Start: 09-27-2021 Open reduction and internal fixation of fracture of humerus Orthopaedic bone screw, non-bioabsorbable, non-sterile ()[id number] FDA Start: 09-27-2021 Open reduction and internal fixation of fracture of humerus Orthopaedic bone screw, non-bioabsorbable, non-sterile ()[id number] FDA Start: 09-27-2021 Open reduction and internal fixation of fracture of humerus Orthopaedic bone screw, non-bioabsorbable, non-sterile ([id number] [facility] Start: 09-27-2021 Clinical Notes 09-26-2021 to 06-13-2022 Note Date & Type Note Facility 06-13-2022 Note CONSULTATION CONSULTATION DATE: 06/13/2021 CHIEF COMPLAINT: Low back pain, bilateral hip pain. HISTORY OF PRESENT ILLNESS: This is a very pleasant, 87-year-old female who has had chronic pain. The patient is currently being managed with medications; oxycodone 5 mg t.i.d. She also takes baclofen 10 mg h.s. and gabapentin 300 mg b.i.d. The oxycodone will be refilled for her today. The cold weather is aggravating the patient's pain. Twisting, standing, walking, housework, bending activities aggravate the pain as does cooking. The patient rates the pain as a 5/10 if she does not take her pain medication. The patient's PAST MEDICAL HISTORY / SURGICAL HISTORY / REVIEW OF SYSTEMS are without any change and noted on the chart. PHYSICAL EXAM: Upon physical examination, this is a pleasant, slightly cachectic female. The patient is alert, oriented x3, is concerned with regards to recently diagnosed macular degeneration. VITAL SIGNS: Blood pressure is 106/65 with a heart rate of 75. At a height of 5', the patient weighs 51 kg. HEAD: Atraumatic, normocephalic. NECK: Crepitus is noted. HEART: Negative orthopnea. LUNGS: Negative dyspnea. ABDOMEN: Soft, non- distended. EXTREMITIES: The patient ambulates without any assistive devices. MUSCULOSKELETAL: Intact in the lower extremities at 4+/5 bilaterally; however, the quality of the muscles and the muscle density and muscle bulk are diminished. The patient is sedentary given the restrictions with the weather.. NEUROLOGICALLY: No radicular symptomatology is noted. IMPRESSION: Current working diagnosis on the patient is chronic low back pain, lumbar degenerative disc disease, chronic pain medication to control pain. PLAN: At this time, we will refill the patient's oxycodone 5 mg t.i.d. The patient understands and would like to maintain. [facility] 11-16-2022 Evaluation note Encounter Date Diagnosis Assessment Notes Mar, Dizziness (ICD-10 - R42) Mar, Closed displaced comminuted fracture of shaft of right humerus with routine healing, subsequent encounter (ICD-10 - S42.351D) Izabela is here now 1 year s/p right comminuted humeral shaft ORIF. She is doing well. Her exam is benign and her incision is healed. Her x-rays are also benign and have been reviewed with her at bedside. Activities as tolerated without restrictions. Follow-up as needed Patient is progressing well. We discussed the importance of continuing to work on range of motion and strength exercise. Discussed with patient to progress activity as tolerated Mar, Acute pain of left knee (ICD-10 - M25.562) Mar, Other specified postprocedural states (ICD-10 - Z98.890) [facility] Other 10-27-2022 NoteCONSULTATION CONSULTATION DATE: 03/16/2022 HISTORY OF PRESENT ILLNESS: This is an 86-year-old female returning to the clinic for a three month follow up for her chronic lower back pain, bilateral hip pain. Historically, the patient has had radiofrequency ablations in the past and requests no more procedures and prefers to be medically managed. She states she rates her pain as 8/10, described as a burning and aching to her lower back pain. It is aggravated by housework, vacuuming, bending and twisting. She does use heat application throughout the day which greatly decreases her pain. Medications include oxycodone 5 mg t.i.d., gabapentin 300 mg b.i.d., baclofen 10 mg q.h.s. and a multivitamin regimen. Patient's REVIEW OF SYSTEMS / PAST MEDICAL HISTORY / ALLERGIES and IMAGES have been reviewed and they are noted on the chart. PHYSICAL EXAM: VITAL SIGNS: Blood pressure 130/72, heart rate is 79. Temperature is 97.8. She is 5', weighs 50 kg. GENERAL IMPRESSION: Pleasant, appropriate, no acute distress. FOCUSED EXAM - BACK: Paravertebral muscles are taut but non-spasmodic. Reproduction of spinal axial pain mildly to the lower lumbar facets of L3, L4, L5 bilaterally. Dhruv's point mildly tender bilaterally, right greater than left, with no radiating pain. MUSCULOSKELETAL: Diffuse muscle atrophy noted to upper and lower extremities. Patient does not use assistive device to ambulate. She has a steady, antalgic gait. NEUROLOGICALLY: Radicular sensory is intact. Negative polyneuropathy. DIAGNOSIS: Lumbar spinal canal stenosis, lumbar degenerative disc disease, lumbar spondylosis and kyphosis. PLAN: Aqua therapy was offered to the patient and she declined, stating that she would think about it in the future. We will refill her oxycodone 5 mg t.i.d. The patient is in the process of attempting to gain weight, and I have recommended that she drink at least two Boosts a day. She is compliant with her vitamins and was encouraged to continue to do so. We will see her in three months' time unless otherwise indicated.[id number] note* Encounter Date Diagnosis Assessment Notes Treatment Notes Treatment Clinical Notes Dec, Dizziness (ICD-10 - R42) Dec, Closed displaced comminuted fracture of shaft of right humerus with routine healing, subsequent encounter (ICD-10 - S42.351D) Izabela is here now 12 weeks s/p right comminuted humeral shaft ORIF. She is doing well. Her exam is benign and her incision is healed. Her x-rays are also benign and have been reviewed with her at bedside. At this point I would allow her to increase weightbearing to as tolerated and have encouraged her to work on range of motion without restrictions. I will plan to see her back in another 3 months for repeat x-rays of the humerus Patient is progressing well. We discussed the importance of continuing to work on range of motion and strength exercise. Xrays reviewed with patient today. Patient instructed on use of occasional heat to area and motion exercise. Activity as tolerated. Dec, Acute pain of left knee (ICD-10 - M25.562) Dec, Other specified postprocedural states (ICD-10 - Z98.890) [facility] Other 07-27-2022 NoteCONSULTATION CONSULTATION DATE: 12/14/2021 HISTORY OF PRESENT ILLNESS: This is an 86-year-old female, returning to the clinic for chronic lower back pain and medication maintenance. Patient stated she had surgery on 09/26/2021. She had a broke right humerus. An ORIF was placed by Dr. Shelby. She just completed home therapy and has been making good gains with her arm. In regards to her back, she has known facet arthropathy and spinal canal stenosis. All physical activity aggravates her pain and heat and rest decreases her pain. Patient has tried medial branch blocks and lumbar epidural steroid injections last March and did not receive any reported relief. She is declining further procedures at this time. Current medications include oxycodone 5 mg t.i.d., gabapentin 300 mg b.i.d., baclofen, Fosamax and a multivitamin regimen. Patient's REVIEW OF SYSTEMS / PAST MEDICAL HISTORY / ALLERGIES and IMAGES have been reviewed and they are noted on the chart. PHYSICAL EXAM: VITAL SIGNS: Blood pressure 169/84, heart rate is 74. Temperature is 97.1. She is 5' and weighs 48.7 kg. GENERAL APPEARANCE: Pleasant, appropriate, in no acute distress. FOCUSED EXAM - BACK: Lateral rotation and flexion/extension is guarded. Paravertebral muscles are non-. spasmodic. Reproduction of spinal axial pain to direct compression along the lumbar facets of L2, L3 and L4, L5 which is concordant with facet arthropathy, lumbar spondylosis. Dhruv's point non-tender bilaterally. MUSCULOSKELETAL: Diffuse muscle atrophy noted bilateral lower extremities. Patient does walk with a steady but low gait. NEUROLOGICAL: Patchy hypoesthesia noted bilateral lower extremities along L2, L3 with referral the groin. IMPRESSION: Lumbar spinal canal stenosis, lumbar degenerative disc disease and chronic lower back pain. PLAN: At this time, we will just continue to medically manage her and send a refill for oxycodone 5 mg t.i.d. An oral U-Tox will be done in the clinic as well. Vitamin importance and nutrition were discussed and patient remains compliant in those areas. We will see her in three months' time unless otherwise indicated. Patient agrees.[id number] Evaluation note* Encounter Date Diagnosis Assessment Notes Treatment Notes Treatment Clinical Notes Nov, Dizziness (ICD-10 - R42) Nov, Closed displaced comminuted fracture of shaft of right humerus with routine healing, subsequent encounter (ICD-10 - S42.351D) Izabela is here now 8 weeks s/p right comminuted humeral shaft ORIF. She is doing well. Her exam is benign and her incision is healed. Her x-rays are also benign and have been reviewed with her at bedside. At this point I would allow her to increase weightbearing to 10 pounds and have encouraged her to work on range of motion without restrictions. I will plan to see her back in another 6 weeks for repeat x-rays of the humerus Patient is progressing well from surgery. We discussed the importance of continuing motion and strength exercise. Nov, Acute pain of left knee (ICD-10 - M25.562) Nov, Other specified postprocedural states (ICD-10 - Z98.890) [facility] Other 06-08-2022 Evaluation note* Encounter Date Diagnosis Assessment Notes Treatment Notes Treatment Clinical Notes Oct, Dizziness (ICD-10 - R42) Oct, Closed displaced comminuted fracture of shaft of right humerus with routine healing, subsequent encounter (ICD-10 - S42.351D) Izabela is here now 4 weeks s/p right comminuted humeral shaft ORIF. She is doing well. Her exam is benign and her incision is healed. Her sutures have been removed today. Her x-rays are also benign and have been reviewed with her at bedside. At this point I would allow her to increase weightbearing to 10 pounds and have encouraged her to work on range of motion without restrictions. I will plan to see her back in another 4 weeks for repeat x-rays of the humerus. Instructed on application of Neosporin to incision to help dryness. Julianne removed today under sterile conditions. Patient tolerated well with no adverse reactions. May allow incision to get wet in clean running water, no bernabe/polo/stre ams. Discussed with patient she may discontinue sling Oct, Acute pain of left knee (ICD-10 - M25.562) Oct, Other specified postprocedural states (ICD-10 - Z98.890) Oct, Removal of julianne (ICD-10 - Z48.02) Oct, Other See orders for this visit as documented in the electronic medical record. [facility] Other 05-09-2022 Evaluation note* Encounter Date Diagnosis Assessment Notes Treatment Notes Treatment Clinical Notes September, Closed displaced comminuted fracture of shaft of right humerus, initial encounter (ICD-10 - S42.351A) Izabela presents with nondominant right humeral shaft fracture. At this juncture we have discussed the findings and diagnosis as well as personally reviewed appropriate imaging and performed interpretation of related testing and examination with the patient in office today. Prior medical notes from [facility] Dr. Alvarez and history have been reviewed. At this time I would recommend ORIF. Izabela presents with right humeral shaft fracture. At this juncture we have discussed the findings and diagnosis as well as reviewed appropriate imaging and performed interpretation of testing. Surgical intervention is recommended. Prior medical notes and history have been reviewed. Surgical versus non-operative management have been discussed in detail and non-operative management was given as an option. The risks of surgical intervention were given. Pre-operative optimization will be done prior to surgical procedure to limit cely-operative risks. I have discussed the planned procedure, how and who performs the procedure, and the personnel involved. Cardiovascular, pulmonary, and other life threatening episodes can occur during surgery although there is a low risk of these happening. Surgical risks including bleeding, neurovascular injury, wound closure problems and infection were discussed. Cely-operative risks including infection, bleeding, wound healing problems, and need for further surgery were discussed. It was discussed that there is a possibility of blood transfusion with any surgical procedure and the risks involved in receiving a blood transfusion. Possibility of, and need for, future bracing or DME use, physical or occupational therapy, mental therapy, rehabilitation, pain management and need for secondary procedures was discussed. I have warned against smoking and the use of tobacco products due to the risks associated with them, in particular, poor healing. I have advised against the usp use of narcotic pain medication. I have advised to follow all post-operative instructions in order to obtain the best outcome. Informed consent has been verbally affirmed and signed as indicated. The patient has been involved in our cooperative treatment plan and agrees to move forward with treatment at this time. September, Pre-op examination (ICD-10 - Z01.818) September, Dizziness (ICD-10 - R42) Patient had CT scan performed at [facility] which was negative but has had ongoing issues with dizziness since then. I recommended a return trip to the emergency department for evaluation of this. I also plan for admission to the hospitalist service for overnight observation I would also plan for admission to the hospital service for overnight observation and surgical clearance for right humeral shaft surgery tomorrow. Plan to obtain labs in the emergency department including CBC, BMP, coagulation panel, type and screen. N.p.o. at midnight we will plan for surgery tomorrow. September, Acute pain of left knee (ICD-10 - M25.562) X-rays reviewed and negative. We will continue to monitor September, Other See orders for this visit as documented in the electronic medical record. [facility] Other Evaluation noteNo assessment information available [facility] Work Phone: Evaluation note* Diagnosis Other chronic pain- Primary documented [facility] this [facility] - [facility]* Type Description Date Medical History arthritis Medical History osteoporosis Medical History hypothyroidism Medical History ovarian cancer Surgical History back surgery Surgical History hysterectomy Hospitalization History see above [facility] Other History general Narrative - Reported* Type Description Date Medical History arthritis Medical History osteoporosis Medical History hypothyroidism Medical History ovarian cancer Surgical History back surgery Surgical History hysterectomy Surgical History ORIF right humeral shaft fractu re 09/27/2021 Hospitalization History see above [facility] Other Discharge Instructions * Discharge Instr - Activity* Dallas Briseno RN - 02/28/2020 1:57 PM EDT Activity as tolerated * Discharge Instr - Diet* Dallas Briseno RN - 02/28/2020 1:57 PM EDT ? Good nutrition is important when healing from an illness, injury, or surgery. Follow any nutrition recommendations given to you during your hospital stay. ? If you were given an oral nutrition supplement while in the hospital, continue to take this supplement at home. You can take it with meals, in-between meals, and/or before bedtime. These supplements can be purchased at most local grocery stores, pharmacies, and chain [employer]stores. ? If you have any questions about your diet or nutrition, call the hospital and ask for the dietitian. No restrictions * Additional Instructions* Dallas Briseno RN - 02/28/2020 Follow-up with colorectal surgery as instructed No changes to medications Per Dr. Laureano take Maribel lax and stool softener daily Dr. Laureano's office will call on Sunday to schedule for Rectal Prolapse surgery on Sunday or * Attachments The following attachments cannot be sent through Care Everywhere. * Colonoscopy: Pre-op (Armenian) * Rectal Prolapse (Armenian) documented in this encounter* Discharge Instr - VIKTORIYA* Angie Lewis RN - 03/24/2020 10:02 AM EST Continuity of Care Form Patient Name: Izabela Díaz : 1935 Admit date: 03/23/2020 Discharge date: Code Status Order: Full Code Advance Directives: Advance Care Flowsheet Documentation Date/Time Healthcare Directive Type of Healthcare Directive Copy in Chart Healthcare Agent Appointed Healthcare Agent's Name Healthcare Agent's Phone Number 03/23/201957 Yes, patient has an advance directive for healthcare treatment Durable power of commercial litigation attorney for health care No, copy requested from family Adult Children 03/23/20 110 Yes, patient has an advance directive for healthcare treatment Durable power of commercial litigation attorney for health care;Living will No, copy requested from family Adult Children Admitting Physician: Verenice Laureano MD PCP: Mohsen Jones MD Discharging Nurse: Discharging Hospital Unit/Room#: Discharging Unit Phone Number: Emergency Contact: Extended Emergency Contact Information Primary Emergency Contact: EDER DÍAZ Relation: Spouse Preferred language: Armenian Secondary Emergency Contact: CHARLES ASHLEY Relation: Other Preferred language: Armenian Past Surgical History: Past Surgical History: Procedure Laterality Date CHOLECYSTECTOMY HERNIA REPAIR HYSTERECTOMY RECTAL PROLAPSE REPAIR N/A 03/23/2020 COLONOSCOPY WITH PERIANAL RESECTION AND RECTAL PROLAPSE REPAIR performed by Verenice Laureano MD at [facility] OR REFRACTIVE SURGERY Immunization History: There is no immunization history on file for this patient. Active Problems: Patient Active Problem List Diagnosis Code Fecal impaction (HCC) K56.41 Hypothyroidism E03.9 Rectal prolapse K62.3 Isolation/Infection: Isolation No Isolation Patient Infection Status Infection Onset Added Last Indicated Last Indicated By Review Planned Expiration Resolved Resolved By None active Resolved COVID-19 Rule Out 03/19/20 03/19/20 03/19/20 Covid-19 Ambulatory (Ordered) 03/21/20 Rule-Out Test Resulted Nurse Assessment: Last Vital Signs: BP 132/87 Pulse 97 Temp 97.8 F (36.6 C) (Oral) Resp 18 Ht 5' (1.524 m) Wt 125 lb (56.7 kg) SpO2 96% BMI 24.41 kg/m Last documented pain score (0-10 scale): Pain Level: 8 Last Weight: Wt Readings from Last 1 Encounters: 03/23/20 125 lb (56.7 kg) Mental Status: {IP PT MENTAL STATUS:} IV Access: { VIKTORIYA IV ACCESS:108386109} Nursing Mobility/ADLs: Walking {CHP DME ADLs:142052548} Transfer {CHP DME ADLs:268327169} Bathing {CHP DME ADLs:966386370} Dressing {CHP DME ADLs:348801404} Toileting {CHP DME ADLs:684253605} Feeding {CHP DME ADLs:931377470} [employer] Worker {P DME ADLs:509564319} Med Delivery { VIKTORIYA MED Delivery:812032397} Wound Care Documentation and Therapy: Elimination: Continence: Bowel: {YES / NO:} Bladder: {YES / NO:} Urinary Catheter: {Urinary Catheter:969821996} Colostomy/Ileostomy/Ileal Conduit: {YES / NO:} Date of Last BM: Intake/Output Summary (Last 24 hours) at 03/24/2020 1002 Last data filed at 03/24/2020 0731 Gross per 24 hour Intake 1200 ml Output 550 ml Net 650 ml I/O last 3 completed shifts: In: 1200 [P.O.:400; I.V.:800] Out: 450 [Urine:450] Safety Concerns: { VIKTORIYA Safety Concerns:587996255} Impairments/Disabilities: { VIKTORIYA Impairments/Disabilities:552710262} Nutrition Therapy: Current Nutrition Therapy: { VIKTORIYA Diet List:383804122} Routes of Feeding: {CHP DME Other Feedings:359774573} Liquids: {Linen Supply Load Builder liquid thickness:24064} Daily Fluid Restriction: {CHP DME Yes amt example:600067755} Last Modified Barium Swallow with Video (Video Swallowing Test): {Done Not Done Date:} Treatments at the Time of Hospital Discharge: Respiratory Treatments: Oxygen Therapy: {Therapy; copd oxygen:95347} Ventilator: {[facility] Vent List:032509241} Rehab Therapies: {THERAPEUTIC INTERVENTION:3840350655} Weight Bearing Status/Restrictions: { CC Weight Bearin} Other Medical Equipment (for information only, NOT a DME order): {EQUIPMENT:529417145} Other Treatments: Patient's personal belongings (please select all that are sent with patient): {CHP DME Belongings:609892994} RN SIGNATURE: {Esignature:620952827} CASE MANAGEMENT/SOCIAL WORK SECTION Inpatient Status Date: Readmission Risk Assessment Score: Readmission Risk Risk of Unplanned Readmission: 0 Discharging to Facility/ Agency Name: Address: Phone: Fax: Dialysis Facility (if applicable) Name: Address: Dialysis Schedule: Phone: Fax: Scissors Sharpener/Tree Trimmer Helper signature: {Esignature:245570522} PHYSICIAN SECTION Prognosis: {Prognosis:4127686976} Condition at Discharge: { Patient Condition:748478974} Rehab Potential (if transferring to Rehab): {Prognosis:6796356122} Recommended Labs or Other Treatments After Discharge: Physician Certification: I certify the above information and transfer of Izabela Díaz is necessary for the continuing treatment of the diagnosis listed and that she requires {Admit to Appropriate Level of Care:85893} for {GREATER/LESS:046625007} 30 days. Update Admission H&P: {CHP DME Changes in HandP:037029637} PHYSICIAN SIGNATURE: {Esignature:878157428} * Additional Instructions* Damaso Vasquez DO - 03/23/2020 General Surgery Patient Discharge Instructions Discharge Date: 03/23/2020 Discharged To: Home RESUME ACTIVITY: WOUND CARE: Use Sitz baths at home Can apply bacitracin to anus BATHING: Ok to shower DRIVING: No driving while on pain medication RETURN TO WORK: no heavy lifting WALKING: Yes LIFTING: Less than 5 pounds for 6 weeks DIET: Ok to resume regular diet. SPECIAL INSTRUCTIONS: Call the Dr. Laureano's office for appt in 2 weeks. Continue to use Sitz baths at home. * Attachments The following attachments cannot be sent through Care Everywhere. * Rectal Prolapse (Armenian) documented in this encounter History of Present Illness * Dallas Briseno RN - 02/28/2020 3:50 PM EDT Soil Chemist reviewed discharge instructions with patient. Patient verbalize understanding signature obtained. Patient discharge with belongings no script * Dallas Briseno RN - 02/28/2020 12:[address] Haskins notified of consult reviewed urine culture and current tx no new orders at this time * Cole Menendez DO - 02/28/2020 12:44 PM EDT [facility] Office: [phone] Juan Ramon Toledo DO, Grzegorz Jennings DO, Sixto Weber DO, Carmelo Alejo DO, Radha De Dios MD, Juliana Ambriz MD, Constantino Ahuja MD, Robina San MD, Pawel Guzman MD, Aneta Champion MD, MD Ronel, Rodney Grimm MD, Aracelis Traore MD, Favian Degroot DO, Eva Alexander MD, Mando Perdomo MD, Cloe Menendez DO, Matt Jordan MD, Nagi Gilmore DO, Ron Butts MD, MD Fredo, Flaquita Pizano CNP, Vicky Lau SURGERY MANAGER, Izzy Clay, SURGERY MANAGER, Mary Martinez, HAND PICKER,Raoul Jimenez, SURGERY MANAGER, Susie Chapman, SURGERY MANAGER, Krystle Lino, SURGERY MANAGER, Lindsey Damon, SURGERY MANAGER, Osmin Stephens CNP, Patrick Ag PA-C, Pat Carrero DNP, Elvie Farmer CNP, Rosalinda Irwin CNP, Verena Washington CNP, Joie Kaur CNP, Nora Beckman CNP [facility] IN-PATIENT SERVICE [facility] Progress Note 02/28/2020 12:44 PM Name: Izabela Díaz Acct: [id number] Room: IP Day: 1 Admit Date: 02/27/2020 6:10 AM PCP: Mohsen Jones MD Code Status: Full Code Subjective: C/C: Rectal Prolapse Interval History Status: improved. Patient seen and examined, still having some pain from her rectum although much improved. Colorectal surgery came by this morning and cleared patient for discharge to follow-up next week for possiblesurgery. Patient will set up appointment with their office. No other complaints and eager to go home Brief History: Izabela Díaz is a 84 y.o. Non-/non female who presents with No chief complaint on file. and is admitted to the hospital for the management of Fecal impaction (HCC). Patient was seen in the emergency department and sent from surgeon office for rectal prolapse and chronic constipation. Patient states she has been having this for the past week and has had issues with constipation in the past. Patient already seen by colorectal surgery who believes this is from animpacted stool rather than rectal prolapse, patient was ordered MiraLAX and a soapsuds enema which will be performed. They had stated that if she is able to have a large bowel movement then she can be discharged. She has no complaints at this time Review of Systems: Constitutional: negative for chills, fevers, sweats Respiratory: negative for cough, dyspnea on exertion, shortness of breath, wheezing Cardiovascular: negative for chest pain, chest pressure/discomfort, lower extremity edema, palpitations Gastrointestinal: negative for abdominal pain, constipation, diarrhea, nausea, vomiting Neurological: negative for dizziness, headache Medications: Allergies: Allergies Allergen Reactions Pcn [Penicillins] Hives Current Meds: Scheduled Meds: enoxaparin 40 mg Subcutaneous Daily sodium chloride flush 10 mL Intravenous 2 times per day levothyroxine 50 mcg Oral Daily pravastatin 40 mg Oral Nightly pantoprazole 40 mg Oral QAM AC Continuous Infusions: PRN Meds: acetaminophen OR acetaminophen, magnesium sulfate, nicotine, potassium chloride OR potassium alternative oral replacement OR potassium chloride, promethazine OR ondansetron,sodium chloride flush, morphine Data: Past Medical History: has a past medical history of Emphysema lung (HCC), Hiatal hernia, Hyperlipidemia, Hypothyroid, and Osteoporosis. Social History: reports that she has never smoked. She does not have any smokeless tobacco history on file. She reports previous alcohol use. She reports previous drug use. Family History: No family history on file. Vitals: BP (!) 165/67 Pulse 73 Temp 98.2 F (36.8 C) (Oral) Resp 16 Ht 5' (1.524 m) Wt 132 lb 9.6 oz (60.1 kg) SpO2 97% BMI 25.90 kg/m Temp (24hrs), Av.1 F (36.7 C), Min:97.7 F (36.5 C), Max:98.4 F (36.9 C) No results for input(s): POCGLU in the last 72 hours. I/O (24Hr): Intake/Output Summary (Last 24 hours) at 02/28/2020 1244 Last data filed at 02/28/2020 0941 Gross per 24 hour Intake 888 ml Output 850 ml Net 38 ml Labs: Hematology: Recent Labs 02/27/201402/28/20 0549 WBC 9.0 8.6 RBC 4.04 4.07 HGB 12.3 12.3 HCT 36.9 38.7 MCV 91.2 95.1 MCH 30.4 30.2 MCHC 33.3 31.8 RDW 13.6 12.8 PLT 228 217 MPV 8.5 10.1 Chemistry: Recent Labs 02/27/201402/28/20 0549 NA 138 139 K 3.9 3.8 CL 101 102 CO2 27 24 GLUCOSE 106* 127* BUN 14 6* CREATININE 0.83 0.61 MG -- 1.8 ANIONGAP 10 13 LABGLOM >60 >60 GFRAA >60 >60 CALCIUM 9.6 9.0 PHOS -- 1.8* Recent Labs 02/28/20 0549 PROT 6.7 LABALBU 3.7 AST 18 ALT 11 ALKPHOS 67 BILITOT 0.52 AMYLASE 28 LIPASE 13 ABG:No results found for: POCPH, PHART, PH, POCPCO2, XFV5LDN, PCO2, POCPO2, PO2ART, PO2, POCHCO3, WGT8HLM, HCO3, NBEA, PBEA, BEART, BE, THGBART, THB, BDK7LJI, SSQJ0FSA, L5ZXUGUF, O2SAT, FIO2 No results found for: SPECIAL No results found for: CULTURE Radiology: Ct Abdomen Pelvis W Iv Contrast Additional Contrast? None Result Date: 02/27/2020 Moderate to large amount of retained stool in the colon with no evidence of bowel obstruction. Rectal prolapse. Other chronic findings as above. Physical Examination: General appearance: alert, cooperative and no distress Mental Status: oriented to person, place and time and normal affect Lungs: clear to auscultation bilaterally, normal effort Heart: regular rate and rhythm, no murmur Abdomen: soft, nontender, nondistended, normal bowel sounds, no masses, hepatomegaly, splenomegaly Extremities: no edema, redness, tenderness in the calves Skin: no gross lesions, rashes, induration Assessment: Hospital Problems Last Modified POA * (Principal) Fecal impaction (HCC) 02/27/2020 Yes Hypothyroidism 02/27/2020 Yes Plan: 1. Fecal Impaction MiraLAX, soapsuds enema. Colorectal surgery evaluated today, outpatient follow-up. 2. Hypothyroidism - continue Synthroid Cole Menendez DO 02/28/2020 12:44 PM * Jessika Hewitt RN - 02/28/2020 1:05 AM EDT Pt transferred to [facility], room 2007, from [facility]. Alert & oriented X4. * Roxann Reynolds - 02/27/2020 12:25 PM EDT Transitions of Care Pharmacy Service Medication Review The patient's list of current home medications has been reviewed. Source(s) of information: patient, Riky Andres ([place], [place]) Based on information provided by the above source(s), I have updated the patient's home med list asdescribed below. I changed or updated the following medications on the patient's home medication list: Discontinued Prilosec 40mg - alternative therapy Added Claritin 10mg - 1QD PRN allergies Amitriptyline 25mg - 1QHS Albuerol Inh - 2Q6H PRN wheezing Protonix 40mg - 1QD Adjusted Gabapentin 300mg - changed from 1BID to 1QHS Meloxicam 15mg TBDP (TID) changed to tabs 1QD Multivitamin - added sig 1QD Oxycodone 5mg - changed from 1TID to 1BID PRN pain Pravastatin 20mg changed to 40mg (QHS) Other Notes Fosamax 70mg - takes on Sundays Please feel free to call me with any questions about this encounter. Thank you. This note will be reviewed and co-signed by the Transitions of Care Pharmacist. The pharmacist willreview inpatient orders and contact the physician about any discrepancies. Roxann Reynolds, emergency medical technician basic Transitions of Care Pharmacy Service Prior to Admission medications Medication Sig Start Date End Date Taking? Authorizing Provider pantoprazole (PROTONIX) 40 MG tablet Take 40 mg by mouth daily loratadine (CLARITIN) 10 MG tablet Take 10 mg by mouth daily as needed (allergies) amitriptyline (ELAVIL) 25 MG tablet Take 25 mg by mouth nightly albuterol sulfate HFA (VENTOLIN HFA) 108 (90 Base) MCG/ACT inhaler Inhale 2 puffs into the lungs every 6 hours as needed for Wheezing baclofen (LIORESAL) 10 MG tablet Take 10 mg by mouth nightly meloxicam (MOBIC) 15 MG tablet Take 1 tablet by mouth daily oxyCODONE 5 MG tablet Take 5 mg by mouth 2 times daily as needed for Pain. b complex vitamins capsule Take 1 capsule by mouth daily pravastatin (PRAVACHOL) 40 MG tablet Take 40 mg by mouth nightly levothyroxine (SYNTHROID) 50 MCG tablet Take 50 mcg by mouth Daily gabapentin (NEURONTIN) 300 MG capsule Take 300 mg by mouth nightly. calcium carbonate 600 MG TABS tablet Take 1 tablet by mouth daily Multiple Vitamins-Minerals (MULTIVITAMIN ADULT) TABS Take 1 tablet by mouth daily cyanocobalamin 1000 MCG tablet Take 1,000 mcg by mouth daily alendronate (FOSAMAX) 70 MG tablet Take 70 mg by mouth every 7 days Associated attestation - Urszula Gasca RPH - 02/27/2020 6:42 PM EDT Pt Name: Izabela Díaz Birthdate 1935 I have reviewed the patient's home medication list and current inpatient orders and agree with the documentation provided by the [facility] emergency medical technician basic. To be addressed by a physician/nurse practitioner: home med list is ready for provider review/reorder as appropriate Please feel free to call me with any questions about this encounter. Thank you. Urszula Gasca, PharmD Pharmacy Medication Accuracy Review Service * Josseline Cardona RN - 02/27/2020 6:36 AM EDT Pt arrived to floor via stretcher from [place] and was transfered to bed. Vitals taken. Admission and assessment complete. No distress noted. See doc flowsheet and admission navigator for details. POC and education initiated and reviewed with patient. Call light within reach, and pt educated onits use. Bed in lowest position, and locked. Side rails up x 2. Denied further questions or needs at this time. Will continue to monitor. documented in this encounter* Angie Lewis RN - 03/24/2020 5:17 PM EST The pt was discharged to home. The discharge instructions were given and reviewed with the pt. She was escorted to the exit per wheelchair in stable condition. * Angie Lewis RN - 03/24/2020 11:51 AM EST The pt was educated on how to use a sitz bath. She did not perform well with this.. She was given aperi bottle. She was able to rinse her rectal area without diff. * Angie Lewis RN - 03/24/2020 7:30 AM EST [place] was in to see the pt. Plan to discharge her to home later today. * Verenice Laureano MD - 03/24/2020 6:06 AM EST Colorectal Surgery: Daily Progress Note PATIENT NAME: Izabela Díaz TODAY'S DATE: 03/24/2020, 6:07 AM SUBJECTIVE: Pt seen and examined at bedside. Vitals stable. No acute events. Patient reports she is just now starting to have mild pain, controlled. Voiding overnight. Per RN no saturation of maxi pads, no significant bleeding. OBJECTIVE: VITALS: BP (!) 125/59 Pulse 63 Temp 98.3 F (36.8 C) (Oral) Resp 15 Ht 5' (1.524 m) Wt 125lb (56.7 kg) SpO2 93% BMI 24.41 kg/m INTAKE/OUTPUT: Intake/Output Summary (Last 24 hours) at 03/24/2020 0607 Last data filed at 03/24/2020 0240 Gross per 24 hour Intake 800 ml Output 150 ml Net 650 ml PHYSICAL EXAM: General Appearance: awake, alert, oriented, in no acute distress HEENT: Normocephalic, atraumatic, mucus membranes moist Heart: Heart regular rate and rhythm Lungs: Unlabored respirations, room air Abdomen: Soft, nontender Extremities: No cyanosis, pitting edema, rashes noted. Skin: Skin color, texture, turgor normal. No rashes or lesions. ASSESSMENT: Active Hospital Problems Diagnosis Date Noted Rectal prolapse [K62.3] 03/23/2020 1. 84 y.o. female POD#1 s/p altmeier procedure Plan: 1. General diet 2. PO pain control 3. OK for sitz bath this AM 4. OOB, ambulate this AM 5. DC planning - anticipate home today I Dr. Laureano saw and examined the patient. I have edited the above and agree with the above. Verenice Laureano Colorectal Surgery * Deidre Terrell RN - 03/24/2020 5:52 AM EST Put sitz bath in patients room. Explained to patient and patient is requesting to take the sitz bath after breakfast. * Deidre Terrell RN - 03/23/2020 7:42 PM EST Patient was transferred to room 2001 from PACU. Patient is stable at time of discharge. Patient is alert and oriented. Patient was oriented to room and to call remote. Patients belongings brought to room. documented in this encounter Assessments Diagnosis Fecal impaction (HCC) Hypothyroidism Unspecified hypothyroidism Diagnosis Post-op pain Other acute postoperative pain Rectal prolapse Advance Directives Latest Code Status on File Code Status Date Activated Date Inactivated Comments Full Code 02/27/2020 6:19 AM Latest Code Status on File Code Status Date Activated Date Inactivated Comments Full Code 03/23/2020 7:27 PM Full Code 02/27/2020 6:19 AM 02/28/2020 5:59 PM Latest Code Status on File Code Status Date Activated Date Inactivated Comments Full Code 03/23/2020 7:27 PM Full Code 02/27/2020 6:19 AM 02/28/2020 5:59 PM Advance Directive Response Recorded Date/ Time Advance Directives No September 26, 2021 3:15pm Advance Directive Response Recorded Date/ Time Advance Directives No September 26, 2021 2:15pm Summary Purpose Family History No Family History Records FoundNo Family History Records FoundNo Family History Records FoundNo Family History Records FoundNo Family History Records Found Hospital Course * Damaso Vasquez, - 03/24/2020 7:11 AM EST Colorectal Surgery Discharge Summary Patient Identification Izabela Díaz is a 84 y.o. female. : 1935 Admit Date: 03/23/2020 Discharge date: 03/24/2020 Disposition: home Discharge Diagnoses: Patient Active Problem List Diagnosis Fecal impaction (HCC) Hypothyroidism Rectal prolapse Condition on discharge: Good Consults: None Surgery: Altmeier perineal resection Patient Instructions: Activity: no heavy lifting, pushing, pulling for 6 weeks, no driving for 2 weeks or while on analgesics Diet: As tolerated Follow-up with Dr. Laureano in 2 weeks. See pre-printed instructions in chart and given to patient upon discharge. Discharge Medications: ArjunIzabela Home Medication Instructions REECE:[id number] Printed on:03/24/20 0711 Medication Information albuterol sulfate HFA (VENTOLIN HFA) 108 (90 Base) MCG/ACT inhaler Inhale 2 puffs into the lungs every 6 hours as needed for Wheezing alendronate (FOSAMAX) 70 MG tablet Take 70 mg by mouth every 7 days amitriptyline (ELAVIL) 25 MG tablet Take 25 mg by mouth nightly b complex vitamins capsule Take 1 capsule by mouth daily baclofen (LIORESAL) 10 MG tablet Take 10 mg by mouth nightly calcium carbonate 600 MG TABS tablet Take 1 tablet by mouth daily cyanocobalamin 1000 MCG tablet Take 1,000 mcg by mouth daily gabapentin (NEURONTIN) 300 MG capsule Take 300 mg by mouth nightly. HYDROcodone-acetaminophen (NORCO) 5-325 MG per tablet Take 1 tablet by mouth every 6 hours as needed for Pain for up to 3 days. Intended supply: 3 days. Take lowest dose possible to manage pain levothyroxine (SYNTHROID) 50 MCG tablet Take 50 mcg by mouth Daily loratadine (CLARITIN) 10 MG tablet Take 10 mg by mouth daily as needed (allergies) meloxicam (MOBIC) 15 MG tablet Take 1 tablet by mouth daily Misc. Devices (SITZ BATH) MISC Place 1 Units rectally 2 times daily for 5 days Multiple Vitamins-Minerals (MULTIVITAMIN ADULT) TABS Take 1 tablet by mouth daily pantoprazole (PROTONIX) 40 MG tablet Take 40 mg by mouth daily pravastatin (PRAVACHOL) 40 MG tablet Take 40 mg by mouth nightly HPI and Hospital Course: 84 y.o. female presented on 03/23/2020 for rectal prolapse. Pt had been having sxs of prolapse for quite some time. Pt was seen in the office and scheduled for surgery. Pt's surgical course was uneventful. She underwent Altmeier procedure for resection of the prolapsed rectal tissue. Post operatively the pt was admitted for pain control and monitoring. Hospital course was unremarkable. On day of discharge pt was tolerating regular diet, pain controlled with oral medications and ambulating without difficulty. Pt was educated on post op discharge instructions. She was given prescriptions. We discussed how to use Sitz baths. Pt is to F/U in 1-[address] Laureano. documented in this encounter Chief Complaint and Reason for Visit Chief Complaint S42.351D S42.351D S42.351D Additional Source Comments Reason for Visit (unrecogniz ed section and content) Reason Comments Rectal Problems prolapse Status Reason Specialty Diagnoses / Procedures Referre d By Contact Referred To Contact Diagnoses Rectal prolapse RECTAL PROLAPSE Procedures MI RECTUM SURGERY PROCEDURE UNLISTED COLONOSCOPY WITH PERIANAL RESECTION AND RECTAL PROLAPSE REPAIR Verenice Laureano MD [address] [place] [address] [facility] Reason Comments Med Refill INFORMATION SOURCE (unrecogn ized section and content) DATE CREATED AUTHOR 03/24/2020 [facility] DATE CREATED AUTHOR AUTHOR'S ORGANIZ ATION 03/25/2020 [facility] DATE CREATED AUTHOR AUTHOR'S ORGANIZ ATION 06/24/2022 [facility] DATE CREATED AUTHOR AUTHOR'S ORGANIZ ATION 09/29/2022 [facility] DATE CREATED AUTHOR AUTHOR'S ORGANIZ ATION 06/29/2023 [facility] dical Specialists EPIC Care Teams (unrecognized sec tion and content) Team Status: Inactive Member Role Status Dates NON STAFF Primary Care Provider Active Jewel Rodriguez DO Attending Provider Active Team Status: Active Member Role Status Dates NON STAFF Primary Care Provider Active Director Of Medical Review Relationship Specialty Start Date End Date Mohsen Jones MD [address] [place] [address] PCP - General Family Medicine 06/06/23 Milvia Haas NP [address] [place] [id number] Nurse Practitioner Family Medicine 06/06/23 Director Of Medical Review Relationship Specialty Start Date End Date Mohsen Jones MD [address] [place] [phone] PCP - General Family Medicine 06/06/23 Milvia Haas NP [address] [place] [address] Nurse Practitioner Family Medicine 06/06/23 Goals (unrecognized section and content) Goals may be documented in a n alternate section FOR RECORDS PERTAINING TO PATIENTS WHO ARE OR HAVE BEEN ENROLLED IN A CHEMICAL DEPENDENCY/SUBSTANCEABUSE PROGRAM, SOME INFORMATION MAY BE OMITTED. This clinical summary was aggregated from multiple sources. Caution should be exercised in using it in the provision of clinical care. This summary normalizes information from multiple sources, and as a consequence, information in this document may materially change the coding, format and clinical context of patient data. In addition, data may be omitted in some cases. CLINICAL DECISIONS SHOULD BE BASED ON THE PRIMARY CLINICAL RECORDS. [email or web address] [facility]. provides no warranty or guarantee of the accuracy or completeness of information in this document.
--- NOTE | 2023-07-05 12:07 | PM.CN ---
Consult Note: HPI Data of Consult Patient: known to practice within the last 3 years Requesting Physician: Pau Salazar NP Primary Care Provider: Milvia Haas NP Consult Narrative Reason for consult: f/u Narrative: Izabela Díaz a pleasant 87 year old female presents for evalaution and management of chronic back pain. Today pain 10/10 with activity and weather, often times pain 6/10 controlled . Pain increased with all activity and improved with sitting or lying. Patient reports moderate functional improvement and pain relief with current medication regimen. Denies numbness tingling or weakness. cc:: CC: Pau Salazar NP Review of Systems ROS Status of ROS 10 or more systems reviewed and unremarkable except as noted in history and below Musculoskeletal Reports: back pain Meds Home Medications and Allergies Home Medications Medication Instructions Recorded Confirmed Type alendronate 70 mg tablet 70 mg PO QWEEK 10/19/22 10/19/22 History baclofen 10 mg tablet 10 mg PO QDAY 10/19/22 10/19/22 History calcium carbonate 500 mg calcium 500 mg PO QDAY 10/19/22 10/19/22 History (1,250 mg) chewable tablet cyanocobalamin (vitamin B-12) 1,000 mcg PO QDAY 10/19/22 10/19/22 History 1,000 mcg capsule gabapentin 300 mg capsule 300 mg PO BID 10/19/22 10/19/22 History levothyroxine 50 mcg tablet 50 mcg PO QDAY 10/19/22 10/19/22 History multivitamin 1 tab PO QDAY 10/19/22 10/19/22 History omeprazole 40 mg capsule,delayed 40 mg PO QDAY 10/19/22 10/19/22 History release oxycodone 5 mg tablet 5 mg PO TID 10/19/22 10/19/22 History pravastatin 20 mg tablet 20 mg PO QDAY 10/19/22 10/19/22 History oxycodone 5 mg tablet 5 mg PO TID PRN pain #90 tabs 01/17/23 Rx baclofen 10 mg tablet 10 mg PO DAILY #30 tabs 03/08/23 Rx oxycodone 5 mg capsule 5 mg PO QID PRN pain #105 caps 03/08/23 Rx oxycodone 5 mg capsule 5 mg PO TID PRN pain #90 caps 10/19/23 Rx oxycodone 5 mg tablet 5 mg PO TID PRN pain #90 tabs 04/19/23 Rx oxycodone 5 mg tablet 5 mg PO TID PRN pain #90 tabs 05/31/23 Rx Allergies Allergy/AdvReac Type Severity Reaction Status Date / Time Penicillins Allergy Mild Hives Verified 10/19/22 13:17 Exam Constitutional Documenting provider has reviewed patient's vital signs: yes Common normals: no apparent distress, oriented x3, healthy appearing, alert and well nourished General appearance: cooperative HENMT Common normals: normocephalic, hearing grossly normal bilaterally and moist oral mucous membranes Head and scalp: normocephalic Eye Common normals: PERRL Pupil: PERRL Neck & C-Spine Common normals: full ROM General: normal visual inspection Chest Common normals: inspection of chest normal Respiratory Common normals: normal respiratory effort, no retractions and no use of accessory muscles Back & Pelvis Thoracic spine/upper back: ROM limited, pain with ROM and kyphosis present Lumbar spine/lower back: ROM limited and pain with ROM Extremity Common normals: normal to inspection and full ROM Neuro Common normals: oriented x3, CN's II-XII intact bilaterally, moves all extremities, no focal motor deficits, no sensory deficits noted and deep tendon reflexes 2+ bilaterally Sensorium/orientation: alert Gait (neuro): antalgic Motor exam: strength 5/5 throughout and no movement abnormalities noted Psych Common normals: mental status grossly normal, thought process normal, cooperative, affect normal, speech normal and activity/motor behavior normal Speech: normal speech Thought process: normal thought process Results Additional Findings Additional findings: I have checked an [place] report on this patient today and there are no aberrancies noted in the prescribing history.?? A drug screen was completed and reviewed within the last year, and if there has not been a drug screen completed we ordered one today to monitor higher risk, state monitored pain medication use. As part of providing excellent, safe, comprehensive care, the following was completed at our patient's visit: 1. A medication reconciliation and review to ensure accurate knowledge of current/active medications, including asking our patients to inform us about any [id number] medications or herbal remedies/nutritional supplements/alternative remedies. 2. A review to specifically ensure our patients have had annual screening for: elevated body mass index (BMI), tobacco use, screening for depression, and screening for unhealthy alcohol use. When screening is concerning, patients are provided with education and the specific recommendation to discuss the concerning health issue and treatment options with their primary care provider. Assessment and Plan Assessment and Plan (1) Lumbar spondylosis: (2) Low back pain: (3) Degenerative disc disease: (4) Muscle spasm: (5) Chronic prescription opiate use: Assessment and Plan: I feel these medications are improving the patient's quality of life and allow them to tolerate activities of daily living as well as participate in recreational activity.? The patient does not report intolerable side effects. The patient is NOT opioid naive and non-pharmacologic and non-opioid treatment has failed to significantly relieve the patient's pain and improve functionality. The patient has a diagnosis that is related to a somatic or visceral pain etiology. ? ?? I reviewed with the patient the potential risks and side effects with the use of? opioid medications including but not limited to respiratory depression,? sedation, and even . I verified the patient has access to naloxone should? these effects occur. I advised the patient to avoid the use of any other? sedation substances including alcohol, THC, and benzodiazepines while? taking opioid medications due to the risk of compounding side effects and? detrimental outcomes. I reviewed the [employer], pain treatment agreement, urine? drug screen, and opioid start talking forms. The patient was advised to let? their family know they had Naloxone in case they would need to administer? the medication.? ?? Plan declining additional injection therapy and updating imaging continue oxycodone 5 to TID-QID PRN 105 tablets per month continue baclofen 10mg HS PRN narcan previously discussed and declined, pt educated on continue bracing f/u 3 months for medication management
== END 2023-07-05 11:34 | disposition home or self-care (01) ==
PROVIDERS: PCP Nurse Practitioner; Visit Provider Nurse Practitioner
DX: M47.816 Spondylosis without myelopathy or radiculopathy, lumbar region (principal); M54.50 Low back pain, unspecified; M51.36 Other intervertebral disc degeneration, lumbar region; M62.838 Other muscle spasm; Z79.891 Long term (current) use of opiate analgesic
CPT/HCPCS: G0463

== ENCOUNTER 2023-08-24 12:19 | Outpatient (OUT) | payer MEDICARE, SELFPAY ==
--- OUTSIDE RECORDS SUMMARY | 2023-08-24 12:39 | XMS_ITS | CCD ---
Author Organization [facility] Care Team Providers Care Physical Trainer Name Role Phone Mohsen Jones Primary Care Provider SELMA MIRANDA Referring Unavailable MOHSEN JONES Primary Care Unavailabl e MOHSEN JONES Primary Care Unavailabl e CARIDAD PRINGLE Attending Unavailable MENENDEZ, COLE Attending Unavailable MENENDEZ, COLE Admitting Unavailable CARIDDA PRINGLE Referring Unavailable MOHSEN JONES Primary Care Unavailabl e HETAL, ABED E Consulting Unavailable MOHSEN JONES Primary Care Unavailabl e HETAL, ABED E Attending Unavailable HETAL, ABED E Admitting Unavailable Jennifer, Jewel Unavailable NON STAFF Primary Care Provider Unavailabl e Jennifer, DO Jewel A Attending Provider [phone] NON STAFF Primary Care Provider Unavailabl e Jennifer, DO Jewel A Attending Provider Jennifer, Jewel A Admitting Unavailable NON STAFF Primary Care Unavailable Jennifer, Jewel A Attending Unavailable Jennifer, Jewel A Attending Unavailable NON STAFF Primary Care Unavailable Jennifer, Jewel A Admitting Unavailable Jennifer, Jewel A Attending Unavailable NON STAFF Primary Care Unavailable Jennifer, Jewel A Admitting Unavailable Jennifer, Jewel A Attending Unavailable Jennifer, Jewel A Admitting Unavailable NON STAFF Primary Care Unavailable Jeaneth Crowe Consulting Unavailable Stanislav Mathews Admitting Unavailable Deep Smith Attending Unavailable Jennifer, Jewel A Admitting Unavailable NON STAFF Primary Care Unavailable Jennifer, Jewel A Attending Unavailable HAYLEY Tubbs, DR TAM Candelaria Attending Unavailable HAYLEY ., DR TAM Candelaria Admitting Unavailable TYLER WEBSTER Consulting Unavailable AICHHOLZ, MANAGER ECONOMIC MILVIA Primary Care Unavailable AICHHOLZ, MANAGER ECONOMIC MILVIA Primary Care Unavailable LAKSHMIPATHY ., NARENDRANATH Attending Lelo vailable LAKSHMIPATHY ., NARENDRANATH Consulting Lelo vailable LAKSHMIPATHY ., NARENDRANATH Admitting Lelo vailable [facility], [facility] Primary Care Unavailable HAYLEY ., DR TAM Candelaria Attending Unavailable FUENTES ., TYLER Consulting Unavailable PERDOMO ., DR TAM Candelaria Admitting Unavailable HALKER .MARLINE Consulting Unavailable PERDOMO ., DR TAM Candelaria Attending Unavailable PERDOMO ., DR TAM Candelaria Consulting Unavailable [facility], [facility] Primary Care Unavailable PERDOMO ., DR TAM Candelaria Admitting Unavailable FUENTES ., TYLER Consulting Unavailable PERDOMO ., DR TAM Candelaria Attending Unavailable PERDOMO ., DR TAM Candelaria Admitting Unavailable FUENTES ., TYLER Consulting Unavailable [facility], [facility] Primary Care Unavailable [facility], [facility] Attending Unavailable [facility] PEST CONTROL CHEMICAL TECHNICIAN, [facility] Unavailable Darrius KENNEDY, Mohsen Primary Care Provider [phone] Allergies Allergy Classification Reported Allergen(s) Allergy Type Date of Onset Reaction(s) Facility (7 sources) Penicillins Propensity to adverse reactions to drug 0 [facility] [employer] [place] (5 sources) penicillAMINE Drug Allergy [facility] [employer] Other (1 source) Penicillins Drug allergy (disorder) 2 [facility] Repository (1 source) Penicillins Drug allergy (disorder) 3 [facility] Repository (2 sources) Acetaminophen Drug Allergy 4 [facility] Healthcare (2 sources) oxyCODONE Drug Allergy 4 Unknown [facility] Healthcare Work Phone: (2 sources) Penicillins Propensity to adverse reactions 4 [facility] Medications Current Medications Medication Drug Class(es) Dates Sig (Normalized) Sig (Original) acetaminophen 500 mg oral tablet (4 sources) Start: 09-27-2021 take 2 tablets by mouth every eight hours Acetaminophen (Tylenol Extra Strength) 500 mg tablet Active 1000 MG PO Every 8 hours 180 30 September 26, 2021 11:00pm Start: 03-23-2020 take 650 mg by mouth every eight hours as needed for pain, then take 4000 mg by mouth every twenty-four hours as needed for pain 650 mg, Oral, EVERY 8 HOURS PRN, Pain Mild (1-3), Starting Sun03/23/20 at 1926 Maximum dose of acetaminophen is 4000 mg [...] (4-6), Pain Severe (7-10), Starting Sun03/23/20 at 1926 Maximum dose of acetaminophen is 4000 mg from all sources in 24 hours. 200 actuat albuterol 0.09 mg/actuat metered dose inhaler (6 sources) beta2-Adrenerg ic Agonist Start: 03-23-2020 take 2 puff(s) by inhalation every six hours as needed 2 puff, Inhalation, EVERY 6 HOURS PRN, Wheezing, Starting Sun03/23/20 at 1926 This is an Observation patient. Please see [...] Age related osteoporosis, unspecified pathological fracture presence (CMS/[facility]) Take 1 tablet (70 mg) by mouth [...] pharmacy for identification. take 1 capsule by [facility] twice daily gabapentin (NEURONTIN) 300 MG capsule [...] Meloxicam Active take 1 tablet by savanna th once daily meloxicam (MOBIC) 15 MG tablet [...] (1 source) Cholinergic Nicotinic Agonist Start: 02-27-20 20 nicotine (NICODERM CQ) 21 MG/24HR 1 patch [...] % injection 75 mL polyethylene glycol 3350 50349 mg powder for oral solution (1 source) [...] 4 06-18-2023 Chronic Other aftercare (1 source) predatory animal exterminator (current) use of opiate analgesic; Translations: [HALF-WAY CURRNT USE OPIATE ANALGES] Onset: 3 Episodic [...] UNSPECIFIED; Translations: [LOW BACK PAIN, UNSPECIFIED] Onset: Past or Other Problems Problem Classification Problem [...] 10-26-2021 Episodic Other aftercare (1 source) Other dedicated intermodal truck driver (current) drug therapy; Translations: [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] Onset: 06-15-2022 Episodic Unclassified (1 source) LOW BACK PAIN, UNSPECIFIED; Translations: [LOW BACK PAIN, UNSPECIFIED] Onset: 09-14-2022 Viral infection (4 sources) Herpes zoster; Translations: [Zoster without complications] Onset: 06-28-2023 Resolved: 06-28-2023 06-28-2023 Episodic Results Test Name Value Interpretation Reference Range Facility XR humerus RT*on 04-05-2022 XR humerus RT* [facility] [place] [address] XRay Report Signed Patient: Izabela Díaz MR#: [id number] 75 : 1935 Acct:[id number] Age/Sex: 86 / F ADM Date: 04/05/22 Loc: [facility] Room: Type: [facility] Attending Dr: Jewel Rodriguez DO Copies to: [...] Minesh Saba M.D.04/05/2022 3:36 PM Dictation Location: [facility]- Transcribed By: [facility] 04/05/22 153 Dictated By: Minesh Saba II, MD 04/05/221534 Signed By: 04/05/221535 [facility] XR humerus RT*on 01-04-2022 XR humerus RT* [facility] [place] [address] XRay Report Signed Patient: Izabela Díaz MR#: [id number] 75 : 1935 Acct:[id number] Age/Sex: 86 / F ADM Date: 01/04/22 Loc: [facility] Room: Type: [facility] Attending Dr: Jewel Rodriguez DO Copies to: [...] Carmelo Longoria M.D.01/04/2022 4:15 PM Dictation Location: [facility]-11 Transcribed By: [facility] 01/04/221614 Dictated By: Carmelo Longoria DO 01/04/221611 Signed By: 01/04/221614 [facility] XR humerus RT* [facility] [employer] Other XR humerus RT* [facility] Main [facility] Other XR humerus RT* [address] [facility] [employer] Other XR humerus RT* [place] [address] No [address] [employer] Other XR humerus RT* XRay Report [employer] Other XR humerus RT* Signed [employer] Other XR humerus RT* Patient: Izabela Díaz MR#: [id number] [facility] [employer] Other XR humerus RT* 75 [employer] Other XR humerus RT* : 1935 Acct:[id number] [employer] Other XR humerus RT* Age/Sex: 86 / F ADM Date: 01/04/22 [facility] [employer] Other XR humerus RT* Loc: [facility] Room: Type: [facility] [employer] Other XR humerus RT* Attending Dr: Jewel Rodriguez DO [employer] Other XR humerus RT* Copies to: Jewel Rodriguez DO [employer] Other XR humerus RT* Ordering Provider: Jewel Rodriguez DO [employer] Other XR humerus RT* Date of Service: 01/04/22 [employer] Other XR humerus RT* XR/XR humerus RT*: Closed displaced comminuted fracture of shaft of right [employer] Other XR humerus RT* humer [employer] Other XR humerus RT* 2 viewsRIGHT humerus plain film [employer] Other XR humerus RT* COMPARISON:11/25/21 [facility] [employer] Other XR humerus RT* HISTORY:Status post ORIF RIGHT humeral shaft fracture [employer] Other XR humerus RT* No visible healing seen. [employer] Other XR humerus RT* No hardware failure or loosening identified. Bony alignment adequate. [employer] Other XR humerus RT* XR/XR humerus RT* [employer] Other XR humerus RT* IMPRESSION:Stable findings [employer] Other XR humerus RT* Impression dictated by: Carmelo Longoria M.D.01/04/2022 4:15 PM [employer] Other XR humerus RT* Dictation Location: [place] [address] [employer] Other XR humerus RT* Transcribed By: PWS 01/04/22 [facility] [employer] Other XR humerus RT* Dictated By: Carmelo Longoria DO 01/04/22 [facility] [employer] Other XR humerus RT* Signed By: [employer] Other XR humerus RT* 01/04/22 [facility] [employer] Other XR humerus RT*on 11-23-2021 XR humerus RT* [facility] [place] [address] [place] [address] XRay Report Signed Patient: Izabela Díaz MR#: [id number] 75 : 1935 Acct:[id number] Age/Sex: 86 / F ADM Date: 11/23/21 Loc: [facility] Room: Type: [facility] Attending Dr: Jewel Rodriguez DO Copies to: [...] Carmelo Longoria M.D.11/23/2021 3:28 PM Dictation Location: [facility] Transcribed By: [facility] 11/23/21 1528 Dictated By: Carmelo Longoria DO 11/23/21 1526 Signed By: 11/23/21 1528 Normal [facility] XR shoulder RT min 2V*on XR shoulder RT min 2V* [facility] [place] [address] [place] [address] XRay Report Signed Patient: Izabela Díaz MR#: [id number] 75 : 1935 Acct:[id number] Age/Sex: 86 / F ADM Date: 10/26/21 Loc: [facility] Room: Type: [facility] Attending Dr: Jewel Rodriguez DO Ordering Provider: [...] Boykin Jr., M.D.10/26/2021 2:19 PM Dictation Location: [facility] Transcribed By: [facility] 10/26/21 1419 Dictated By: Jose Alejandro Boykin Jr, MD 10/26/21 1412 Signed By: 10/26/21 1419 Normal [facility] XR shoulder RT min 2V* [facility] [employer] Other XR shoulder RT min 2V* [facility] [place] [employer] Other XR shoulder RT min 2V* [address] [facility] [employer] Other XR shoulder RT min 2V* [place] [address] [employer] Other XR shoulder RT min 2V* XRay Report [employer] Other XR shoulder RT min 2V* Signed [employer] Other XR shoulder RT min 2V* Patient: Izabela Díaz MR#: [id number] [employer] Other XR shoulder RT min 2V* 75 [employer] Other XR shoulder RT min 2V* : 1935 Acct:[id number] [employer] Other XR shoulder RT min 2V* Age/Sex: 86 / F ADM Date: 10/26/21 [employer] Other XR shoulder RT min 2V* Loc: [facility] Room: Type: [facility] [employer] Other XR shoulder RT min 2V* Attending Dr: Jewel Rodriguez DO [employer] Other XR shoulder RT min 2V* Ordering Provider: Jewel Rodriguez DO [employer] Other XR shoulder RT min 2V* Date of Service: 10/26/21 [employer] Other XR shoulder RT min 2V* XR/XR shoulder RT min 2V*: Closed displaced comminuted fracture of shaft [employer] Other XR shoulder RT min 2V* of right humer [employer] Other XR shoulder RT min 2V* Copies to: Jewel Rodriguez, [employer] Other XR shoulder RT min 2V* Right shoulder 10/19/2021. [employer] Other XR shoulder RT min 2V* CLINICAL DATA: Follow-up right shoulder fracture repair. [employer] Other XR shoulder RT min 2V* FINDINGS: 4 views of the right shoulder were obtained and are compared with a postoperative study [employer] Other XR shoulder RT min 2V* 09/27/2021. [employer] Other XR shoulder RT min 2V* There is redemonstration of postsurgical changes related to internal fixation of a fracture of the [employer] Other XR shoulder RT min 2V* proximal humerus with a plate and screws. The hardware appears intact and unchanged in position. [employer] Other XR shoulder RT min 2V* Overall bony alignment appears stable. Skin julianne remain present. There are multiple old right rib [employer] Other XR shoulder RT min 2V* fractures. There is also either a remote ununited fracture of the distal clavicle or an os [employer] Other XR shoulder RT min 2V* acromiale. [employer] Other XR shoulder RT min 2V* XR/XR shoulder RT min 2V* [employer] Other XR shoulder RT min 2V* IMPRESSION: Stable postsurgical changes. [employer] Other XR shoulder RT min 2V* Impression dictated by: Jose Alejandro Boykin Jr., M.D.10/26/2021 2:19 PM [employer] Other XR shoulder RT min 2V* Dictation Location: [place] [address] [employer] Other XR shoulder RT min 2V* Transcribed By: MIREILLE 10/26/21 1419 [facility] [employer] Other XR shoulder RT min 2V* Dictated By: Jose Alejandro Boykin Jr, MD 10/26/21 [facility] [employer] Other XR shoulder RT min 2V* Signed By: [employer] Other XR shoulder RT min 2V* 10/26/21 [facility] [employer] Other ABO/Rh Retypeon 09-29-2021 ABO/RH Recheck Result Positive Normal [facility] Comment on above: Result Comment: PERF ORMED BY: [facility] [address] [place] [id number] PATHOLOGIST [employer] JOESPH ZIEGLER M.D. Basic Metabolic Panelon 09-18 Calcium [Mass/Vol] 8.6 mg/dL Normal 8.2-10.2 [facility] Comment on above: Performed By: #### C BC, BMP ####[place] [address] [place] [address] [facility] Chloride [Moles/Vol] 103 mmol/L Normal 95-114 [facility] Comment on above: Performed By: #### C BC, BMP ####[place] [address] [place] [address] [facility] CO2 [Moles/Vol] 26.1 mmol/L Normal 22.0-30.0 [facility] Comment on above: Performed By: #### C BC, BMP ####[place] [address] [place] [address] [facility] Creatinine [Mass/Vol] 0.68 mg/dL Normal 0.44-1.03 [facility] Comment on above: Performed By: #### C BC, BMP ####[place] [address] [place] [address] [place] Creatinine Clr Calc Pharmacy 41.04 Normal [facility] Comment on above: Result Comment: PERF ORMED BY: [facility] [address] [place] [id number] PATHOLOGIST [employer] JOESPH ZEIGLER M.D. Performed By: #### C BC, BMP ####[address] [address] [facility] Estimated GFR ( Dominique > 60 Normal [facility] Comment on above: Result Comment: GFR estimated reference range: According to KDOQI guidelines, <60 ml/min/1.73m2 is sufficient to diagnose a patient with chronic kidney disease. Performed By: #### C BC, BMP ####[address] [address] [facility] Estimated GFR (Non- Am > 60 Normal [facility] Comment on above: Performed By: #### C BC, BMP ####[address] [address] [facility] Glucose [Mass/Vol] 101 mg/dL High 70-100 [facility] Comment on above: Result Comment: [place] om Glucose Reference Range is dependent on time and content of last meal. Glucose of more than 200 mg/dL in a nonstressed, ambulatory subject supports the diagnosis of Diabetes Mellitus. ADA recommended reference range Performed By: #### C BC, BMP ####[address] [address] [facility] Potassium [Moles/Vol] 3.6 mmol/L Normal 3.5-5.1 [facility] Comment on above: Performed By: #### C BC, BMP ####[address] [address] [facility] Sodium [Moles/Vol] 138 mmol/L Normal 136-146 [facility] Comment on above: Performed By: #### C BC, BMP ####[address] [address] [facility] Urea nitrogen [Mass/Vol] 8 mg/dL Low 9-23 [facility] Comment on above: Performed By: #### C BC, BMP ####[address] [address] [facility] Complete Blood Count Auto Di ffon 09-29-2021 Basophils (Bld) [#/Vol] 0.0 10*3/uL Normal 0.0-0.2 [facility] Comment on above: Result Comment: PERF ORMED BY: [facility] [address] [place] [address] PATHOLOGIST [employer] JOESPH ZIEGLER M.D. Performed By: #### C WILLAM, BMP ####[place] [address] [place] [id number] [facility] Basophils/100 WBC (Bld) 0.2 % Normal . [facility] Comment on above: Performed By: #### C WILLAM, BMP ####[place] [id number] [facility] Eosinophils (Bld) [#/Vol] 0.2 10*3/uL Normal 0.0-0.45 [facility] Comment on above: Performed By: #### C WILLAM, BMP ####[address] Eosinophils/100 WBC (Bld) 2.0 % Normal . [facility] Comment on above: Performed By: #### C WILLAM, BMP ####[place] [id number] [facility] Erythrocyte distribution width (RBC) [Ratio] 16.1 % High 11.9-15.3 [facility] Comment on above: Performed By: #### C WILLAM, BMP ####[place] [id number] [facility] Hematocrit (Bld) [Volume fraction] 29.0 % Low 34.0-46.4 [facility] Comment on above: Performed By: #### C WILLAM, BMP ####[place] [id number] [facility] Hemoglobin (Bld) [Mass/Vol] 9.8 g/dL Low 11.8-15.4 [facility] Comment on above: Performed By: #### C BC, BMP ####[place] [id number] [facility] Lymphocytes (Bld) [#/Vol] 0.9 10*3/uL Low 1.00-4.8 [facility] Comment on above: Performed By: #### C WILLAM, BMP ####[place] [id number] [facility] Lymphocytes/100 WBC (Bld) 9.1 % Normal . [facility] Comment on above: Performed By: #### C BC, BMP ####[place] [address] [place] [address] [facility] MCH (RBC) [Entitic mass] 29.6 pg Normal 24.7-34.3 [facility] Comment on above: Performed By: #### C BC, BMP ####[place] [id number] [facility] MCV (RBC) [Entitic vol] 87.2 fL Normal 80-100 [facility] Comment on above: Performed By: #### C WILLAM, BMP ####[place] [id number] [facility] Mean Corpuscular HGB Conc 33.9 g/dL Normal 32.0-35.0 [facility] Comment on above: Performed By: #### C WILLAM, BMP ####[place] [id number] [facility] Monocytes (Bld) [#/Vol] 0.8 10*3/uL Normal 0.0-0.8 [facility] Comment on above: Performed By: #### C WILLAM, BMP ####[place] [id number] [facility] Monocytes/100 WBC (Bld) 7.5 % Normal . [facility] Comment on above: Performed By: #### C WILLAM, BMP ####[place] [id number] [facility] Neutrophils (Bld) [#/Vol] 8.1 10*3/uL High 1.8-7.7 [facility] Comment on above: Performed By: #### C BC, BMP ####[place] [id number] [facility] Neutrophils/100 WBC (Bld) 81.2 % Normal . [facility] Comment on above: Performed By: #### C BC, BMP ####[address] [place] [address] [facility] Nucleated RBC/100 WBC (Bld) [Ratio] 0.0 % Normal 0-0.5 [facility] Comment on above: Performed By: #### C WILLAM, BMP ####[place] [id number] [facility] Platelet mean volume (Bld) [Entitic vol] 8.8 fL Normal 6.3-10.7 [facility] Comment on above: Performed By: #### C WILLAM, BMP ####[place] [id number] [facility] Platelets (Bld) [#/Vol] 221 10*3/uL Normal 150-450 [facility] Comment on above: Performed By: #### C WILLAM, BMP ####[address] RBC (Bld) [#/Vol] 3.33 10*6/uL Low 3.60-5.00 [facility] Comment on above: Performed By: #### C WILLAM, BMP ####[place] [id number] [facility] WBC (Bld) [#/Vol] 10.0 10*3/uL Normal 4.5-11.0 [facility] Comment on above: Performed By: #### C WILLAM, BMP ####[place] [id number] [facility] XR humerus RT*on 09-29-2021 XR humerus RT* [facility] [address] [place] [address] [place] [address] XRay Report Signed Patient: Izabela Díaz MR#: [id number] 75 : 1935 Acct:[id number] Age/Sex: 86 / F ADM Date: 09/26/21 Loc: Room: [address] [place] [address] Type: ADM IN Attending Dr: Deep Smith [...] Carmelo Longoria M.D.09/29/2021 1:40 PM Dictation Location: [place] [address] Transcribed By: [facility] 09/29/21 1340 Dictated By: Carmelo Longoria DO 09/29/211335 Signed By: 09/29/21 1340 [facility] XR humerus RT* [place] [address] XRay Report Signed Patient: Izabela Díaz MR#: [id number] 75 : 1935 Acct:[id number] Age/Sex: 86 / F ADM Date: 09/26/21 Loc: [place] Room: Type: [facility] Attending Dr: Jewel Rodriguez DO Ordering Provider: [...] Carmelo Longoria M.D.09/29/2021 1:40 PM Dictation Location: [place] [address] Transcribed By: [facility] 09/29/21 1340 Dictated By: Carmelo Longoria DO 09/29/216 Signed By: 09/29/21 1340 [facility] XR shoulder RT min 2V*on XR shoulder RT min 2V* [address] [address] XRay Report Signed Patient: Izabela Díaz MR#: [id number] [birth year] : 1935 Acct:[id number] Age/Sex: 86 / F ADM Date: 09/26/21 Loc: Room: [address] [place] [address] Type: ADM IN Attending Dr: Deep Smith [...] Carmelo Longoria M.D.09/29/2021 3:53 PM Dictation Location: [employer] Transcribed By: [facility] 09/29/211552 Dictated By: Carmelo Longoria DO 09/29/211551 Signed By: 09/29/211552 [facility] XR shoulder RT min 2V* [facility] [place] [address] [place] [address] XRay Report Signed Patient: Izabela Díaz MR#: [id number] [birth year] : 1935 Acct:[id number] Age/Sex: 86 / F ADM Date: 09/26/21 Loc: [place] Room: Type: PRE SDC Attending Dr: Jewel Rodriguez DO Ordering Provider: [...] Carmelo Longoria M.D.09/29/2021 3:53 PM Dictation Location: [facility]--01 Transcribed By: [facility] 09/29/211552 Dictated By: Carmelo Longoria S DO 09/29/211551 Signed By: 09/29/21 155 Normal [facility] Hemoglobin and Hematocriton 09-28-2021 Hematocrit (Bld) [Volume fraction] 30.8 % Low 34.0-46.4 [facility] Comment on above: Result Comment: PERF ORMED BY: [facility] [address] [place] [id number] PATHOLOGIST [employer] JOESPH ZIEGLER M.D. Performed By: #### H H ####[address] [address] [facility] Hemoglobin (Bld) [Mass/Vol] 10.1 g/dL Low 11.8-15.4 [facility] Comment on above: Performed By: #### H H ####[address] [address] [place] Dipstick and Microscopicon 0 09-27-2021 Appearance (U) Cloudy Critically abnormal Clear [facility] Comment on above: Order Comment: Name Collection Type:: Clean-Voided Midstream Performed By: #### A DDONUAPLUS, CUU ####[address] [address] [place] Bacteria,Urine None Seen Normal None Seen [facility] Comment on above: Order Comment: Name Collection Type:: Clean-Voided Midstream Performed By: #### A DDONUAPLUS, CUU ####[address] [address] [place] Bilirubin,Urine Negative Normal Negative [facility] Comment on above: Order Comment: Name Collection Type:: Clean-Voided Midstream Performed By: #### A DDONUAPLUS, CUU ####[address] [address] [place] Color (U) Yellow Normal Yellow [facility] Comment on above: Order Comment: Name Collection Type:: Clean-Voided Midstream Performed By: #### A DDONUAPLUS, CUU ####[address] [address] [place] Glucose Ql (U) Normal Normal Normal [facility] Comment on above: Order Comment: Name Collection Type:: Clean-Voided Midstream Performed By: #### A DDONUAPLUS, CUU ####[address] [address] [facility] Hyaline Casts,Urine 0-8 Normal 0-8 [facility] Comment on above: Order Comment: Name Collection Type:: Clean-Voided Midstream Result Comment: PERF ORMED BY: [facility] [address] [place] [address] PATHOLOGIST [employer] JOESPH ZIEGLER M.D. Performed By: #### A DDONUAPLUS, CUU ####[address] [address] [facility] Ketones Ql (U) Negative Normal Negative [facility] Comment on above: Order Comment: Name Collection Type:: Clean-Voided Midstream Performed By: #### A DDONUAPLUS, CUU ####[address] [address] [facility] Leukocyte esterase Test strip Ql (U) 3+ High Negative [facility] Comment on above: Order Comment: Name Collection Type:: Clean-Voided Midstream Performed By: #### A DDONUAPLUS, CUU ####[address] [address] [facility] Nitrite,Urine Negative Normal Negative [facility] Comment on above: Order Comment: Name Collection Type:: Clean-Voided Midstream Performed By: #### A DDONUAPLUS, CUU ####[address] [address] [facility] Occult Blood,Urine Negative Normal Negative [facility] Comment on above: Order Comment: Name Collection Type:: Clean-Voided Midstream Result Comment: PERF ORMED BY: [facility] [address] [place] [address] PATHOLOGIST [employer] JOESPH ZIEGLER M.D. Performed By: #### A DDONUAPLUS, CUU ####[place] [id number] [facility] pH (U) 5.0 [pH] Normal 5.0-9.0 [facility] Comment on above: Order Comment: Name Collection Type:: Clean-Voided Midstream Performed By: #### A DDONUAPLUS, CUU ####[address] [address] [facility] Protein,Urine Negative Normal Negative [facility] Comment on above: Order Comment: Name Collection Type:: Clean-Voided Midstream Performed By: #### A DDONUAPLUS, CUU ####[address] [address] [facility] RBC,Urine 5-9 High 0-4 [facility] Comment on above: Order Comment: Name Collection Type:: Clean-Voided Midstream Performed By: #### A DDONUAPLUS, CUU ####[address] [address] [facility] Specificy Tracy,Urine 1.019 Normal 1.001-1.030 [facility] Comment on above: Order Comment: Name Collection Type:: Clean-Voided Midstream Performed By: #### A DDONUAPLUS, CUU ####[address] [address] [facility] Squamous Epithelial Cell,Urine 3-4 High 0-2 [facility] Comment on above: Order Comment: Name Collection Type:: Clean-Voided Midstream Performed By: #### A DDONUAPLUS, CUU ####[address] [address] [facility] Urobilinogen,Urine Normal Normal Normal [facility] Comment on above: Order Comment: Name Collection Type:: Clean-Voided Midstream Performed By: #### A DDONUAPLUS, CUU ####[address] [address] [facility] WBC,Urine 10-19 High 0-4 [facility] Comment on above: Order Comment: Name Collection Type:: Clean-Voided Midstream Performed By: #### A DDONUAPLUS, CUU ####[address] [address] [facility] LeukoReduced RBCon 2 LeukoReduced RBC TRANSFUSED 09/27/21 1432 [facility] Type and Screenon 09-27-2021 ABO and Rh group Nom (Bld) Blood group O Rh(D) positive [facility] Comment on above: Order Comment: EVA PUT FLUIDS ON HOLD SO I COULD DRAW BLOOD, AGA ABOVE IV , I DID 2 RED TOP WASTE THEN AGA THE BLOOD BANK,PLS. 1237,09/27/2021.Comment 2 UNITS ON HOLD FOR OR Transfuse now? N Result Comment: PERF ORMED BY: [facility] [address] [place] [address] PATHOLOGIST [employer] JOESPH ZIEGLER M.D. Urine Cultureon 09-27-2021 Bacteria identified Cx Nom (U) >100,000 colonies/ml mixed bacterial skin contaminants 2 Days PERFORMED BY: [facility] [address] [place] [address] PATHOLOGIST [employer] JOESPH ZIEGLER M.D. [facility] Comment on above: Performed By: #### A DDONUAPLUS, CUU ####[place] [id number] [place] [address] [facility] B-Type Natriuretic Peptideon 09-26-2021 Natriuretic peptide B (Bld) [Mass/Vol] 44.0 pg/mL Normal 5-100 [facility] Comment on above: Result Comment: PERF ORMED BY: [facility] [address] [place] [address] PATHOLOGIST [employer] JOESPH ZIEGLER M.D. Performed By: #### C BC, PT, PTT, HS TROP, CMP, BNP ####[facility] [address] [place] [address] [facility] COVID-19 Antigenon 2 COVID-19 Antigen [...] developed and its performance characteristic determined by [employer] and validated at [facility]. This test has not been FDA [...] for SARS Antigen by JIMENA PERFORMED BY: [facility] [address] [place] [id number] PATHOLOGIST [employer] JOESPH ZIEGLER M.D. Normal [facility] Comment on above: Performed By: #### S OFLEONARD, COVID 19 [facility], COVID-19 MEER ####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 This test has not been FDA [...] is terminated or revoked sooner. PERFORMED BY: [place] [address] PATHOLOGIST [employer] JOESPH ZIEGLER M.D. Performed By: #### S OFIAN, COVID 19 [facility], COVID-19 MERE ####[address] facial bones wo conon CT facial bones wo con [facility] [place] [address] [place] [address] CT Scan Report Signed Patient: Izabela Díaz MR#: [id number] 75 : 1935 Acct:[id number] Age/Sex: 86 / F ADM Date: 09/26/21 Loc: ER Room: Type: [facility] ER Attending Dr: Ordering Provider: Harman Corea DO Date of Service: 09/26/21 CT/CT head/brain wo con: dizziness ([id number]) CT/CT facial bones wo con: fall Copies [...] Dela Cruz M.D.09/26/2021 3:51 PM Dictation Location: [place] [address] Transcribed By: [facility] 09/26/21 1551 Dictated By: Winnie Dela Cruz MD 09/26/21 1542 Signed By: 09/26/21 1551 Normal [facility] Complete Blood Count Auto Di ffon 09-26-2021 Basophils (Bld) [#/Vol] 0.1 10*3/uL Normal 0.0-0.2 [facility] Comment on above: Result Comment: PERF ORMED BY: [place] [address] PATHOLOGIST [employer] JOESPH ZIEGLER M.D. Performed By: #### C BC, PT, PTT, HS TROP, CMP, BNP #### [place] [address] [place] Basophils/100 WBC (Bld) 0.8 % Normal . [facility] Comment on above: Performed By: #### C BC, PT, PTT, HS TROP, CMP, BNP #### [place] [address] [place] Eosinophils (Bld) [#/Vol] 0.3 10*3/uL Normal 0.0-0.45 [facility] Comment on above: Performed By: #### C BC, PT, PTT, HS TROP, CMP, BNP #### [address] Eosinophils/100 WBC (Bld) 3.3 % Normal . [facility] Comment on above: Performed By: #### C BC, PT, PTT, HS TROP, CMP, BNP #### [address] Erythrocyte distribution width (RBC) [Ratio] 13.9 % Normal 11.9-15.3 [facility] Comment on above: Performed By: #### C BC, PT, PTT, HS TROP, CMP, BNP #### [address] Hematocrit (Bld) [Volume fraction] 26.5 % Low 34.0-46.4 [facility] Comment on above: Performed By: #### C BC, PT, PTT, HS TROP, CMP, BNP #### [address] Hemoglobin (Bld) [Mass/Vol] 9.0 g/dL Low 11.8-15.4 [facility] Comment on above: Performed By: #### C BC, PT, PTT, HS TROP, CMP, BNP #### [address] Lymphocytes (Bld) [#/Vol] 0.9 10*3/uL Low 1.00-4.8 [facility] Comment on above: Performed By: #### C BC, PT, PTT, HS TROP, CMP, BNP #### [address] Lymphocytes/100 WBC (Bld) 9.2 % Normal . [facility] Comment on above: Performed By: #### C BC, PT, PTT, HS TROP, CMP, BNP #### [address] MCH (RBC) [Entitic mass] 31.0 pg Normal 24.7-34.3 [facility] Comment on above: Performed By: #### C BC, PT, PTT, HS TROP, CMP, BNP #### [address] MCV (RBC) [Entitic vol] 91.5 fL Normal 80-100 [facility] Comment on above: Performed By: #### C BC, PT, PTT, HS TROP, CMP, BNP #### [address] Mean Corpuscular HGB Conc 33.9 g/dL Normal 32.0-35.0 [facility] Comment on above: Performed By: #### C BC, PT, PTT, HS TROP, CMP, BNP #### [address] Monocytes (Bld) [#/Vol] 0.7 10*3/uL Normal 0.0-0.8 [facility] Comment on above: Performed By: #### C BC, PT, PTT, HS TROP, CMP, BNP #### [address] Monocytes/100 WBC (Bld) 7.3 % Normal . [facility] Comment on above: Performed By: #### C BC, PT, PTT, HS TROP, CMP, BNP #### [address] Neutrophils (Bld) [#/Vol] 8.0 10*3/uL High 1.8-7.7 [facility] Comment on above: Performed By: #### C BC, PT, PTT, HS TROP, CMP, BNP #### [address] Neutrophils/100 WBC (Bld) 79.4 % Normal . [facility] Comment on above: Performed By: #### C BC, PT, PTT, HS TROP, CMP, BNP #### [place] [address] [place] Nucleated RBC/100 WBC (Bld) [Ratio] 0.0 % Normal 0-0.5 [facility] Comment on above: Performed By: #### C BC, PT, PTT, HS TROP, CMP, BNP #### [address] Platelet mean volume (Bld) [Entitic vol] 9.1 fL Normal 6.3-10.7 [facility] Comment on above: Performed By: #### C BC, PT, PTT, HS TROP, CMP, BNP #### [address] Platelets (Bld) [#/Vol] 257 10*3/uL Normal 150-450 [facility] Comment on above: Performed By: #### C BC, PT, PTT, HS TROP, CMP, BNP #### [address] RBC (Bld) [#/Vol] 2.90 10*6/uL Low 3.60-5.00 [facility] Comment on above: Performed By: #### C BC, PT, PTT, HS TROP, CMP, BNP #### [address] WBC (Bld) [#/Vol] 10.1 10*3/uL Normal 4.5-11.0 [facility] Comment on above: Performed By: #### C BC, PT, PTT, HS TROP, CMP, BNP #### [address] Comprehensive Metabolic Pane chandra 09-26-2021 Albumin [Mass/Vol] 3.4 g/dL Normal 3.2-5.5 [facility] Comment on above: Performed By: #### C BC, PT, PTT, HS TROP, CMP, BNP #### [address] Albumin/Globulin [Mass ratio] 1.1 {ratio} Normal [facility] Comment on above: Performed By: #### C BC, PT, PTT, HS TROP, CMP, BNP #### [address] ALP [Catalytic activity/Vol] 63 U/L Normal 32-92 [facility] Comment on above: Performed By: #### C BC, PT, PTT, HS TROP, CMP, BNP #### [address] ALT [Catalytic activity/Vol] 16 U/L Normal 10-60 [facility] Comment on above: Performed By: #### C BC, PT, PTT, HS TROP, CMP, BNP #### [address] AST [Catalytic activity/Vol] 25 U/L Normal 10-42 [facility] Comment on above: Performed By: #### C BC, PT, PTT, HS TROP, CMP, BNP #### [address] Bilirubin [Mass/Vol] 0.8 mg/dL Normal 0.3-1.2 [facility] Comment on above: Performed By: #### C BC, PT, PTT, HS TROP, CMP, BNP #### [address] Calcium [Mass/Vol] 9.4 mg/dL Normal 8.2-10.2 [facility] Comment on above: Performed By: #### C BC, PT, PTT, HS TROP, CMP, BNP #### [address] Chloride [Moles/Vol] 99 mmol/L Normal 95-114 [facility] Comment on above: Performed By: #### C BC, PT, PTT, HS TROP, CMP, BNP #### [address] CO2 [Moles/Vol] 27.4 mmol/L Normal 22.0-30.0 [facility] Comment on above: Performed By: #### C BC, PT, PTT, HS TROP, CMP, BNP #### [address] Creatinine [Mass/Vol] 0.93 mg/dL Normal 0.44-1.03 [facility] Comment on above: Performed By: #### C BC, PT, PTT, HS TROP, CMP, BNP #### [address] Creatinine Clr Calc Pharmacy 32.34 [facility] Comment on above: Result Comment: PERF ORMED BY: [place] [address] PATHOLOGIST [employer] JOESPH ZIEGLER M.D. Performed By: #### C BC, PT, PTT, HS TROP, CMP, BNP #### [address] Estimated GFR ( Dominique > 60 [facility] Comment on above: Result Comment: GFR estimated reference range: According to KDOQI guidelines, <60 ml/min/1.73m2 is sufficient to diagnose a patient with chronic kidney disease. Performed By: #### C BC, PT, PTT, HS TROP, CMP, BNP #### [address] Estimated GFR (Non- Am 57 [facility] Comment on above: Performed By: #### C BC, PT, PTT, HS TROP, CMP, BNP #### [address] Globulin (S) [Mass/Vol] 3.0 g/dL Normal [facility] Comment on above: Performed By: #### C BC, PT, PTT, HS TROP, CMP, BNP #### [address] Glucose [Mass/Vol] 96 mg/dL Normal 70-100 [facility] Comment on above: Result Comment: [place] om Glucose Reference Range is dependent on time and content of last meal. Glucose of more than 200 mg/dL in a nonstressed, ambulatory subject supports the diagnosis of Diabetes Mellitus. ADA recommended reference range Performed By: #### C BC, PT, PTT, HS TROP, CMP, BNP #### [address] Potassium [Moles/Vol] 3.8 mmol/L Normal 3.5-5.1 [facility] Comment on above: Performed By: #### C BC, PT, PTT, HS TROP, CMP, BNP #### [address] Protein [Mass/Vol] 6.4 g/dL Normal 6.1-7.9 [facility] Comment on above: Performed By: #### C BC, PT, PTT, HS TROP, CMP, BNP #### [address] Sodium [Moles/Vol] 137 mmol/L Normal 136-146 [facility] Comment on above: Performed By: #### C BC, PT, PTT, HS TROP, CMP, BNP #### [address] Urea nitrogen [Mass/Vol] 25 mg/dL High 02-10 [facility] Comment on above: Performed By: #### C BC, PT, PTT, HS TROP, CMP, BNP #### [address] ECG 12 lead ECGon 09-26-2021 ECG 12 lead ECG [facility] Main [place] [address] [place] [address] Electrocardiograph Report Signed Patient: Izabela Díaz MR#: [id number] [birth year] : 1935 Acct:[id number] Age/Sex: 86 / F ADM Date: 09/26/21 Loc: Room: [address] [place] [address] Type: DIS IN Attending Dr: Deep Smith [...] ECGs available Confirmed by Harman Corea DO ([id number]) on 09/26/2021 7:00:52 PM Referred By: Electronically Signed By:Harman Corea DO Transcribed By: MUS Signed By Harman Corea DO 2 1901 Normal [facility] Partial Thromboplastin Timeo n 09-26-2021 aPTT Coag (Bld) [Time] 28.4 s Normal 25.1-36.5 [facility] Comment on above: Result Comment: PERF ORMED BY: [place] [address] PATHOLOGIST [employer] JOESPH ZIEGLER M.D. Performed By: #### C BC, PT, PTT, HS TROP, CMP, BNP #### [facility] [address] [place], [place] [id number] [facility] Prothrombin Time INRon 09-26 INR Coag (PPP) [Relative time] 1.0 {INR} Normal [facility] Comment on above: Result Comment: INR [...] PT, PTT, HS TROP, CMP, BNP #### [facility] [address] [place], [place] [id number] [facility] PT Coag (PPP) [Time] 11.4 s Normal 9.0-12.9 [facility] Comment on above: Performed By: #### C BC, PT, PTT, HS TROP, CMP, BNP #### [facility] [address] [place] [address] [facility] Mere Ag Negativeon 09-27-19 Mere Ag Negative Negative Normal Negative [facility] Comment on above: Result Comment: This is a duplicate Mere SARS Antigen (JIMENA) result to be used for statistical tracking purpose only. PERFORMED BY: [address] [place] [address] PATHOLOGIST [employer] JOESPH ZIEGLER M.D. Performed By: #### S OFIANEG, COVID 19 [facility], COVID-19 MERE ####[facility] [address] [place] [address] [place] Troponin I High Sensitivityo n 09-26-2021 Troponin I High Sensitivity 12 pg/mL Normal 0-15 [facility] Comment on above: Result Comment: PERF ORMED BY: [place] [address] PATHOLOGIST [employer] JO[employer]PH ZIEGLER M.D. Performed By: #### C BC, PT, PTT, HS TROP, CMP, BNP #### [facility] [address] [place] [address] XR chest 1V portableon 09-26 XR chest 1V portable [facility] [place] [address] XRay Report Signed Patient: Izabela Díaz MR#: [id number] [birth year] : 1935 Acct:[id number] Age/Sex: 86 / F ADM Date: 09/26/21 Loc: ER Room: Type: [facility] ER Attending Dr: Ordering Provider: Harman Corea [...] Carmelo Longoria M.D.09/26/2021 3:35 PM Dictation Location: [place] [address] Transcribed By: [facility] 09/26/21 1535 Dictated By: Carmelo Longoria DO 09/26/21 1534 Signed By: 09/26/21 1535 Normal [facility] XR knee LT 3V - NOT FOR ER U Carine 09-26-2021 XR knee LT 3V - NOT FOR ER USE [facility] [place] [address] XRay Report Signed Patient: Izabela Díaz MR#: [id number] [birth year] : 1935 Acct:[id number] Age/Sex: 86 / F ADM Date: 09/26/21 Loc: SOXD Room: Type: [facility] CLI Attending Dr: Jewel Rodriguez DO Ordering [...] Dela Cruz M.D.09/26/2021 2:48 PM Dictation Location: [place] [address] Transcribed By: [facility] 09/26/21 1448 Dictated By: Winnie Dela Cruz MD 09/26/21 1444 Signed By: 09/26/21 1448 [facility] EKG 12 Leadon 03-24-2020 Atrial Rate 67 BPM [facility] [place] P Post 26 degrees [facility] [place] P-R Interval 154 ms [facility] [place] Q-T Interval 398 ms [facility] [place] QRS Duration 86 ms [facility] [place] QTc Calculation (Bazett) 420 ms [facility] [place] R Post 21 degrees [facility] [place] T Post 82 degrees [facility] [place] Ventricular Rate 67 BPM [place], [place] Normal sinus rhythm Cannot rule out Inferior infarct , age undetermined Abnormal ECG No previous ECGs available [place], [place], [facility] Incoming Ekg Results From [facility] - 03/24/2020 9:48 AM EST Normal sinus rhythm Cannot rule out Inferior infarct , age undetermined Abnormal ECG No previous ECGs available [place], [place] Surgical Pathologyon 020 Surgical Pathology (NOTE) [...] latif-brown and edematous. There are no masses. Senior [employer] sections of each end, 2cs. tm Microscopic Description Microscopic examination performed. SURGICAL PATHOLOGY CONSULTATION Patient Name: IZABELA DÍAZ [facility] Rec: [id number] Path Number: [id number] [facility] [employer] [facility] ANATOMIC PATHOLOGY [address] [place] [phone] Normal [facility] Comment on above: Performed By: #### P PPVS #### [address] [id number] Visiting Teacher: Pasquale Spain MD Covid-19 Ambulatoryon 2019 SARS-CoV-2, [place] Not Detected Not Detected [place], [place] Comment on above: (NOTE) This nucleic acid amplification test was developed and its performance characteristics determined by [employer]. Nucleic acid amplification tests include PCR and [...] detected) result in this assay. Performed At: [facility] [address] [facility], [place] [id number] Golden Latham MD Ph:[phone] Amylaseon 02-28-2020 Amylase [Catalytic activity/Vol] 28 U/L Normal 28-100 [facility] Comment on above: Performed By: #### L IP, CBC, MG, FIONA, SUDHIR, CMPX #### [facility] [address] [place], [place] [id number] Visiting Teacher: Riky Avalos MD Amylase [Catalytic activity/Vol] 28 U/L 28 - 100 U/L [place], [place] CBCon 02-28-2020 Erythrocyte distribution width (RBC) [Ratio] 12.8 % Normal 11.8-14.4 [facility] Comment on above: Performed By: #### L IP, CBC, MG, FIONA, SUDHIR, CMPX #### [facility] [address] [place], [place] [id number] Visiting Teacher: Riky Avalos MD Hematocrit (Bld) [Volume fraction] 38.7 % Normal 36.3-47.1 [facility] Comment on above: Performed By: #### L IP, CBC, MG, FIONA, SUDHIR, CMPX #### [facility] [address] [facility] [place], [place] [id number] Visiting Teacher: Riky Avalos MD Hemoglobin (Bld) [Mass/Vol] 12.3 g/dL Normal 11.9-15.1 [facility] Comment on above: Performed By: #### L IP, CBC, MG, FIONA, SUDHIR, CMPX #### [facility] [address] [place] [place] [address] Visiting Teacher: Riky Avalos MD MCH (RBC) [Entitic mass] 30.2 pg Normal 25.2-33.5 [facility] Comment on above: Performed By: #### L IP, CBC, MG, FIONA, SUDHIR, CMPX #### [facility] [place] [address] Visiting Teacher: Riky Avalos MD MCHC (RBC) [Mass/Vol] 31.8 g/dL Normal 28.4-34.8 [facility] Comment on above: Performed By: #### L IP, CBC, MG, FIONA, SUDHIR, CMPX #### [facility] [address] [place] [address] Visiting Teacher: Riky Avalos MD MCV (RBC) [Entitic vol] 95.1 fL Normal 82.6-102.9 [facility] Comment on above: Performed By: #### L IP, CBC, MG, FIONA, SUDHIR, CMPX #### [facility] [place] [address] Visiting Teacher: Riky Avalos MD NRBC Automated 0.0 per 100 WBC Normal 0.0 [facility] Comment on above: Performed By: #### L IP, CBC, MG, FIONA, SUDHIR, CMPX #### [facility] [address] [place] [address]. [place] [address] Visiting Teacher: Riky Avalos MD Platelet mean volume (Bld) [Entitic vol] 10.1 fL Normal 8.1-13.5 [facility] Comment on above: Performed By: #### L IP, CBC, MG, FIONA, SUDHIR, CMPX #### [facility] [address] [facility] [address] Visiting Teacher: Riky Avalos MD Platelets (Bld) [#/Vol] 217 10*3/uL Normal 138-453 [facility] Comment on above: Performed By: #### L IP, CBC, MG, FIONA, SUDHIR, CMPX #### [facility] [address] [place], [place] [id number] Visiting Teacher: Riky Avalos MD RBC (Bld) [#/Vol] 4.07 10*6/uL Normal 3.95-5.11 [facility] Comment on above: Performed By: #### L IP, CBC, MG, FIONA, SUDHIR, CMPX #### [facility] [address] [place], [place] [phone] Visiting Teacher: Riky Avalos MD WBC (Bld) [#/Vol] 8.6 10*3/uL Normal 3.5-11.3 [facility] Comment on above: Performed By: #### L IP, CBC, MG, FIONA, SUDHIR, CMPX #### [facility] [address] [place], [place] [id number] Visiting Teacher: Riky Avalos MD Erythrocyte distribution width (RBC) [Ratio] 12.8 % 11.8 - 14.4 % [place] Hematocrit (Bld) [Volume fraction] 38.7 % 36.3 - 47.1 % [place] Hemoglobin (Bld) [Mass/Vol] 12.3 g/dL 11.9 - 15.1 g/dL [place] MCH (RBC) [Entitic mass] 30.2 pg 25.2 - 33.5 pg [place] MCHC (RBC) [Mass/Vol] 31.8 g/dL 28.4 - 34.8 g/dL [place] MCV (RBC) [Entitic vol] 95.1 fL 82.6 - 102.9 fL [place] Platelet mean volume (Bld) [Entitic vol] 10.1 fL 8.1 - 13.5 fL [place] Platelets (Bld) [#/Vol] 217 10*3/uL [place] RBC (Bld) [#/Vol] 4.07 10*6/uL 3.95 - 5.1 1 m/uL [place] WBC (Bld) [#/Vol] 8.6 10*3/uL [place] WBC (Bld) [#/Vol] 0.0 10*3/uL 0.0 per 10 0 WBC [place], [place] Comp Metabolic Pr/rfx MGon 1 (cont.) Normal [facility] Comment on above: Result Comment: Aver age GFR for 70 or more years old: 75 mL/min/1.73sq m Chronic Kidney Disease: <60 mL/min/1.73sq m Kidney failure: <15 mL/min/1.73sq m eGFR calculated using average adult body mass. Additional eGFR calculator available at: http://www.Submittable/multiple_crcl_2011.htm Performed By: #### L IP, CBC, MG, FIONA, SUDHIR, CMPX #### [facility] [address] [place] [address] Visiting Teacher: Riky Avalos MD Albumin [Mass/Vol] 3.7 g/dL Normal 3.5-5.2 [facility] Comment on above: Performed By: #### L IP, CBC, MG, FIONA, SUDHIR, CMPX #### [facility] [address] [place] [address] Visiting Teacher: Riky Avalos MD Alkaline Phos 67 U/L Normal 35-104 [facility] Comment on above: Performed By: #### L IP, CBC, MG, FIONA, SUDHIR, CMPX #### [facility] [address] [place] [address] Visiting Teacher: Riky Avalos MD ALT [Catalytic activity/Vol] 11 U/L Normal 5-33 [facility] Comment on above: Performed By: #### L IP, CBC, MG, FIONA, SUDHIR, CMPX #### [facility] [address] [place] [address] Visiting Teacher: Riky Avalos MD Anion gap [Moles/Vol] 13 mmol/L Normal 9-17 [facility] Comment on above: Performed By: #### L IP, CBC, MG, FIONA, SUDHIR, CMPX #### [facility] [address] [place] [address] Visiting Teacher: Riky Avalos MD AST [Catalytic activity/Vol] 18 U/L Normal <32 [facility] Comment on above: Performed By: #### L IP, CBC, MG, FIONA, SUDHIR, CMPX #### [facility] [address] [facility] [place] [address] Visiting Teacher: Riky Avalos MD Bilirubin Ql (U) 0.52 mg/dL Normal 0.3-1.2 [facility] Comment on above: Performed By: #### L IP, CBC, MG, FIONA, SUDHIR, CMPX #### [facility] [address] [facility] [place] [address] Visiting Teacher: Riky Avalos MD BUN/CRE Ratio 10 Normal 9-20 [facility] Comment on above: Performed By: #### L IP, CBC, MG, FIONA, SUDHIR, CMPX #### [facility] [address] [place] [address] Visiting Teacher: Riky Avalos MD Calcium [Mass/Vol] 9.0 mg/dL Normal 8.6-10.4 [facility] Comment on above: Performed By: #### L IP, CBC, MG, FIONA, SUDHIR, CMPX #### [facility] [address] [place] [address] Visiting Teacher: Riky Avalos MD Chloride [Moles/Vol] 102 mmol/L Normal 98-107 [facility] Comment on above: Performed By: #### L IP, CBC, MG, FIONA, SUDHIR, CMPX #### [facility] [address] [place] [place] [address] Visiting Teacher: Riky Avalos MD CO2 [Moles/Vol] 24 mmol/L Normal 20-31 [facility] Comment on above: Performed By: #### L IP, CBC, MG, FIONA, SUDHIR, CMPX #### [facility] [address] [place] [address]. [place] [address] Visiting Teacher: Riky Avalos MD Creatinine [Mass/Vol] 0.61 mg/dL Normal 0.50-0.90 [facility] Comment on above: Performed By: #### L IP, CBC, MG, FIONA, SUDHIR, CMPX #### [facility] [address] [place] [address]. [place] [address] Visiting Teacher: Riky Avalos MD GFR, Amer >60 Normal >60 [facility] Comment on above: Performed By: #### L IP, CBC, MG, FIONA, SUDHIR, CMPX #### [facility] [address] [place] [address]. [place] [address] Visiting Teacher: Riky Avalos MD GFR,non Amer >60 Normal >60 [facility] Comment on above: Performed By: #### L IP, CBC, MG, FIONA, SUDHIR, CMPX #### [facility] [address] [place] [address]. [place] [address] Visiting Teacher: Riky Avalos MD Glucose [Mass/Vol] 127 mg/dL High 70-99 [facility] Comment on above: Performed By: #### L IP, CBC, MG, FIONA, SUDHIR, CMPX #### [facility] [address] [place] [address] Visiting Teacher: Riky Avalos MD Potassium [Moles/Vol] 3.8 mmol/L Normal 3.7-5.3 [facility] Comment on above: Performed By: #### L IP, CBC, MG, FIONA, SUDHIR, CMPX #### [facility] [address] [place] [address] Visiting Teacher: Riky Avalos MD Protein [Mass/Vol] 6.7 g/dL Normal 6.4-8.3 [facility] Comment on above: Performed By: #### L IP, CBC, MG, FIONA, SUDHIR, CMPX #### [facility] [place] [address] Visiting Teacher: Riky Avalos MD Sodium [Moles/Vol] 139 mmol/L Normal 135-144 [facility] Comment on above: Performed By: #### L IP, CBC, MG, FIONA, SUDHIR, CMPX #### [facility] [place] [address] Visiting Teacher: Riky Avalos MD Urea nitrogen [Mass/Vol] 6 mg/dL Low 8-23 [facility] Comment on above: Performed By: #### L IP, CBC, MG, FIONA, SUDHIR, CMPX #### [facility] [place] [address] Visiting Teacher: Riky Avalos MD Albumin/Globulin [Mass ratio] NOT REPORTED Normal 1.0-2.5 [facility] Comment on above: Performed By: #### L IP, CBC, MG, FIONA, SUDHIR, CMPX #### [facility] [address] [place], [place] [id number] Visiting Teacher: Riky Avalos MD Staging: NOT REPORTED Normal [facility] Comment on above: Performed By: #### L IP, CBC, MG, FIONA, SUDHIR, CMPX #### [facility] [address] [facility] [place], [place] [id number] Visiting Teacher: Riky Avalos MD Comprehensive Metabolic Pane l w/ Reflex to MGon 02-28-2020 Albumin [Mass/Vol] 3.7 g/dL 3.5 - 5.2 g/dL [place] Albumin/Globulin [Mass ratio] NOT REPORTED [place] ALP [Catalytic activity/Vol] 67 U/L 35 - 104 U/L [place] ALT [Catalytic activity/Vol] 11 U/L 5 - 33 U/L [place] Anion gap [Moles/Vol] 13 mmol/L 9 - 17 mmol/L [place] AST [Catalytic activity/Vol] 18 U/L <32 [place] Bilirubin Ql (U) 0.52 mg/dL 0.3 - 1.2 mg/dL [place] Bun/Cre Ratio 10 [place] Calcium [Mass/Vol] 9.0 mg/dL 8.6 - 10. 4 mg/dL [place] Chloride [Moles/Vol] 102 mmol/L 98 - 107 mmol/L [place] CO2 [Moles/Vol] 24 mmol/L 20 - 31 mmol/L [place] Creatinine [Mass/Vol] 0.61 mg/dL 0.5 - 0.9 mg/dL [place] GFR >60 >60 mL/min [place] GFR Non- >60 >60 mL/min [place] GFR/1.73 sq M predicted among non-blacks MDRD (S/P/Bld) [Vol rate/Area] NOT REPORTED [place] GFR/1.73 sq M predicted among non-blacks MDRD (S/P/Bld) [Vol rate/Area] [place] Comment on above: Average GFR for 70 o r more years old: 75 mL/min/1.73sq m Chronic Kidney Disease: <60 mL/min/1.73sq m Kidney failure: <15 mL/min/1.73sq m eGFR calculated using average adult body mass. Additional eGFR calculator available at: http://www.Submittable/multiple_crcl_2012.htm Glucose [Mass/Vol] 127 mg/dL High 70 - 99 mg/dL [place] Potassium [Moles/Vol] 3.8 mmol/L 3.7 - 5.3 mmol/L [place] Protein [Mass/Vol] 6.7 g/dL 6.4 - 8.3 g/dL [place] Sodium [Moles/Vol] 139 mmol/L 135 - 144 mmol/L [place] Urea nitrogen [Mass/Vol] 6 mg/dL Low 8 - 23 mg/dL [place] Lipaseon 02-28-2020 Lipase [Catalytic activity/Vol] 13 U/L Normal 13-60 [facility] Comment on above: Performed By: #### L IP, CBC, MG, FIONA, SUDHIR, CMPX #### [facility] [address] [place] [address] Visiting Teacher: Riky Avalos MD Lipase [Catalytic activity/Vol] 13 U/L 13 - 60 U/L [place] Magnesiumon 02-28-2020 Magnesium [Mass/Vol] 1.8 mg/dL Normal 1.6-2.6 [facility] Comment on above: Performed By: #### L IP, CBC, MG, FIONA, SUDHIR, CMPX #### [facility] [address] [place] [address] Visiting Teacher: Riyk Aavlos MD Magnesium [Mass/Vol] 1.8 mg/dL 1.6 - 2.6 mg/dL [place] Otheron 02-28-2020 Interpretation and review of laboratory results Abnormal [place] Phosphoruson 02-28-2020 Phosphate [Mass/Vol] 1.8 mg/dL Low 2.6 - 4.5 mg/dL [place] Phosphorus, Inorg.on 020 Phosphorus, Inorg. 1.8 mg/dL Low 2.6-4.5 [facility] Comment on above: Performed By: #### L IP, CBC, MG, FIONA, SUDHIR, CMPX #### [facility] [address] [place] [address] Visiting Teacher: Riky Avalos MD Basic Metabolic Profon 02-26 (cont.) Normal [facility] Comment on above: Result Comment: Aver age GFR for 70 or more years old: 75 mL/min/1.73sq m Chronic Kidney Disease: <60 mL/min/1.73sq m Kidney failure: <15 mL/min/1.73sq m eGFR calculated using average adult body mass. Additional eGFR calculator available at: http://www.[employer]/multiple_crcl_2012.htm Performed By: #### C DP, BMP #### [facility] [address] [facility]. [place], [place] [id number] Visiting Teacher: Sloan Williamson DO Anion gap [Moles/Vol] 10 mmol/L Normal 9-17 [facility] Comment on above: Performed By: #### C DP, BMP #### [facility] [address] [facility]. [place], [place] [id number] Visiting Teacher: Sloan Williamson DO Calcium [Mass/Vol] 9.6 mg/dL Normal 8.6-10.4 [facility] Comment on above: Performed By: #### C DP, BMP #### [facility] [address] [place] [address] Visiting Teacher: Sloan Williamson DO Chloride [Moles/Vol] 101 mmol/L Normal 98-107 [facility] Comment on above: Performed By: #### C DP, BMP #### [facility] [address] [place] [address] Visiting Teacher: Sloan Williamson DO CO2 [Moles/Vol] 27 mmol/L Normal 20-31 [facility] Comment on above: Performed By: #### C DP, BMP #### [facility] [place] [address] Visiting Teacher: Sloan Williamson DO Creatinine [Mass/Vol] 0.83 mg/dL Normal 0.50-0.90 [facility] Comment on above: Performed By: #### C DP, BMP #### [facility] [place] [address] Visiting Teacher: Sloan Williamson DO GFR, Amer >60 Normal >[address] [facility] Comment on above: Performed By: #### C DP, BMP #### [facility] [place] [address] Visiting Teacher: Sloan Williamson DO GFR,non Amer >60 Normal >60 [facility] Comment on above: Performed By: #### C DP, BMP #### [facility] [place] [address] Visiting Teacher: Sloan Williamson DO Glucose [Mass/Vol] 106 mg/dL High 70-99 [facility] Comment on above: Performed By: #### C DP, BMP #### [facility] [place] [address] Visiting Teacher: Sloan Williamson DO Potassium [Moles/Vol] 3.9 mmol/L Normal 3.7-5.3 [facility] Comment on above: Performed By: #### C DP, BMP #### [facility] [place] [address] Visiting Teacher: Sloan Williamson DO Sodium [Moles/Vol] 138 mmol/L Normal 135-144 [facility] Comment on above: Performed By: #### C DP, BMP #### [facility] [address] [place] [address] Visiting Teacher: Sloan Williamson DO Urea nitrogen [Mass/Vol] 14 mg/dL Normal 8-23 [facility] Comment on above: Performed By: #### C DP, BMP #### [facility] [address] [place] [address] Visiting Teacher: Sloan Williamson DO BUN/CRE Ratio NOT REPORTED Normal 9- [facility] Comment on above: Performed By: #### C KELSI, BMP #### [facility] [address] [place] [address] Visiting Teacher: Sloan Williamson DO Staging: NOT REPORTED Normal [facility] Comment on above: Performed By: #### C KELSI, BMP #### [facility] [address] [place] [address] Visiting Teacher: Sloan Williamson DO CBC with Diffon 02-27-2020 Abs. Basophil 0.10 k/uL Normal 0.0-0.2 [facility] Comment on above: Performed By: #### C DP, BMP #### [facility] [address] [place] [address] Visiting Teacher: Sloan Williamson DO Abs.Neutrophil (Seg) 8.00 k/uL Normal 1.3-9.1 [facility] Comment on above: Performed By: #### C DP, BMP #### [facility] [address] [facility] [place] [address] Visiting Teacher: Sloan Williamson DO Basophils/100 WBC (Bld) 1 % Normal 0-2 [facility] Comment on above: Performed By: #### C DP, BMP #### [facility] [facility] [place] [address] Visiting Teacher: Sloan Williamson DO Eosinophils (Bld) [#/Vol] 0.10 10*3/uL Normal 0.0-0.4 [facility] Comment on above: Performed By: #### C DP, BMP #### [facility] [place] [address] Visiting Teacher: Sloan Williamson DO Eosinophils/100 WBC (Bld) 1 % Normal 0-4 [facility] Comment on above: Performed By: #### C DP, BMP #### [facility] [address] [place] [address] Visiting Teacher: Sloan Williamson DO Erythrocyte distribution width (RBC) [Ratio] 13.6 % Normal 11.5-14.9 [facility] Comment on above: Performed By: #### C DP, BMP #### [facility] [address] [place] [address] Visiting Teacher: Sloan Williamson DO Hematocrit (Bld) [Volume fraction] 36.9 % Normal 36-46 [facility] Comment on above: Performed By: #### C DP, BMP #### [facility] [address] [place] [address] Visiting Teacher: Sloan Williamson DO Hemoglobin (Bld) [Mass/Vol] 12.3 g/dL Normal 12.0-16.0 [facility] Comment on above: Performed By: #### C DP, BMP #### [facility] [address] [place] [address] Visiting Teacher: Sloan Williamson DO Lymphocytes (Bld) [#/Vol] 0.50 10*3/uL Low 1.0-4.8 [facility] Comment on above: Performed By: #### C DP, BMP #### [facility] [place] [address] Visiting Teacher: Sloan Williamson DO Lymphocytes/100 WBC (Bld) 6 % Low 24-44 [facility] Comment on above: Performed By: #### C EKLSI, BMP #### [facility] [address] [place] [address] Visiting Teacher: Sloan Williamson DO MCH (RBC) [Entitic mass] 30.4 pg Normal 26-34 [facility] Comment on above: Performed By: #### C KELSI, BMP #### [facility] [address] [place] [address] Visiting Teacher: Sloan Williamson DO MCHC (RBC) [Mass/Vol] 33.3 g/dL Normal 31-37 [facility] Comment on above: Performed By: #### C KELSI, BMP #### [facility] [address] [place] [address] Visiting Teacher: Sloan Williamson DO MCV (RBC) [Entitic vol] 91.2 fL Normal 80-100 [facility] Comment on above: Performed By: #### C DP, BMP #### [facility] [address] [place] [address] Visiting Teacher: Sloan Williamson DO Monocytes (Bld) [#/Vol] 0.40 10*3/uL Normal 0.1-1.3 [facility] Comment on above: Performed By: #### C DP, BMP #### [facility] [address] [place] [address] Visiting Teacher: Sloan Williamson DO Monocytes/100 WBC (Bld) 4 % Normal 1-7 [facility] Comment on above: Performed By: #### C DP, BMP #### [facility] [facility] [place] [address] Visiting Teacher: Sloan Williamson DO Neutrophil (Seg) 88 % High 36-[address] [facility] Comment on above: Performed By: #### C DP, BMP #### [facility] [place] [address] Visiting Teacher: Sloan Williamson DO Platelet mean volume (Bld) [Entitic vol] 8.5 fL Normal 6.0-12.0 [facility] Comment on above: Performed By: #### C DP, BMP #### [facility] [address] [place] [address] Visiting Teacher: Sloan Williamson DO Platelets (Bld) [#/Vol] 228 10*3/uL Normal 150-450 [facility] Comment on above: Performed By: #### C DP, BMP #### [facility] [address] [place] [address] Visiting Teacher: Sloan Williamson DO RBC (Bld) [#/Vol] 4.04 10*6/uL Normal 4.0-5.2 [facility] Comment on above: Performed By: #### C DP, BMP #### [facility] [place] [address] Visiting Teacher: Sloan Williamson DO WBC (Bld) [#/Vol] 9.0 10*3/uL Normal 3.5-11.0 [facility] Comment on above: Performed By: #### C DP, BMP #### [facility] [place] [address] Visiting Teacher: Sloan Williamson DO Abs.Imm.Granulocyte NOT REPORTED Normal 0.00-0.30 [facility] Comment on above: Performed By: #### C DP, BMP #### [facility] [address] [place] [address] Visiting Teacher: Sloan Williamson DO Auto Diff Performed NOT REPORTED Normal [facility] Comment on above: Performed By: #### C DP, BMP #### [facility] [address] [place] [address] Visiting Teacher: Sloan Williamson DO Immature granulocytes (Bld) [#/Vol] NOT REPORTED Normal 0 [facility] Comment on above: Performed By: #### C DP, BMP #### [facility] [address] [place] [address] Visiting Teacher: Sloan Williamson DO NRBC Automated NOT REPORTED Normal [facility] Comment on above: Performed By: #### C DP, BMP #### [facility] [address] [place] [address] Visiting Teacher: Sloan Williamson DO Platelets (Bld) [#/Vol] NOT REPORTED Normal [facility] Comment on above: Performed By: #### C DP, BMP #### [facility] [address] [place] [address] Visiting Teacher: Sloan Williamson DO RBC morphology finding Nom (Bld) NOT REPORTED Normal [facility] Comment on above: Performed By: #### C DP, BMP #### [facility] [address] [place] [address] Visiting Teacher: Sloan Williamson DO WBC Morphology NOT REPORTED Normal [facility] Comment on above: Performed By: #### C DP, BMP #### [facility] [address] [place] [address] Visiting Teacher: Sloan Williamson DO CT ABDOMEN PELVIS W [...] Denilson Aceves MD 02/27/20 Final result Normal [facility] Hematologyon 02-27-2020 Basophils (Bld) [#/Vol] 0.10 10*3/uL [place] Basophils/100 WBC (Bld) 1 % 0 - 2 % [place] Eosinophils (Bld) [#/Vol] 0.10 10*3/uL [place] Eosinophils/100 WBC (Bld) 1 % 0 - 4 % [place] Hematocrit (Bld) [Volume fraction] 36.9 % 36 - 46 % [place] Hemoglobin (Bld) [Mass/Vol] 12.3 g/dL 12 - 16 g/dL [place] Lymphocytes (Bld) [#/Vol] 0.50 10*3/uL Low [place] Lymphocytes/100 WBC (Bld) 6 % Low 24 - 44 % [place] MCH (RBC) [Entitic mass] 30.4 pg 26 - 34 pg [place] MCV (RBC) [Entitic vol] 91.2 fL 80 - 100 fL [place] Monocytes (Bld) [#/Vol] 0.40 10*3/uL [place] Monocytes/100 WBC (Bld) 4 % 1 - 7 % [place] Platelets (Bld) [#/Vol] NOT REPORTED [place] Platelets (Bld) [#/Vol] 228 10*3/uL [place] RBC (Bld) [#/Vol] 4.04 10*6/uL 4 - 5.2 m/uL [place] RBC morphology finding Nom (Bld) NOT REPORTED [place] WBC (Bld) [#/Vol] NOT REPORTED per 100 WBC [place] WBC (Bld) [#/Vol] 9.0 10*3/uL [place] Metabolic Panelon 02-27-2020 Anion gap [Moles/Vol] 10 mmol/L 9 - 17 mmol/L [place] Calcium [Mass/Vol] 9.6 mg/dL 8.6 - 10. 4 mg/dL [place] Chloride [Moles/Vol] 101 mmol/L 98 - 107 mmol/L [place] CO2 [Moles/Vol] 27 mmol/L 20 - 31 mmol/L [place] Creatinine [Mass/Vol] 0.83 mg/dL 0.5 - 0.9 mg/dL [place] GFR/1.73 sq M predicted among non-blacks MDRD (S/P/Bld) [Vol rate/Area] [place] Comment on above: Average GFR for 70 o r more years old: 75 mL/min/1.73sq m Chronic Kidney Disease: <60 mL/min/1.73sq m Kidney failure: <15 mL/min/1.73sq m eGFR calculated using average adult body mass. Additional eGFR calculator available at: http://www.Submittable/[facility]_crcl_2012.htm GFR/1.73 sq M predicted among non-blacks MDRD (S/P/Bld) [Vol rate/Area] NOT REPORTED [place] Glucose [Mass/Vol] 106 mg/dL High 70 - 99 mg/dL [place] Potassium [Moles/Vol] 3.9 mmol/L 3.7 - 5.3 mmol/L [place] Sodium [Moles/Vol] 138 mmol/L 135 - 144 mmol/L [place] Urea nitrogen [Mass/Vol] 14 mg/dL 8 - 23 mg/dL [place] Otheron 02-27-2020 EXAMINATION: CT OF THE [...] of the bilateral hip joints. Diffuse osteopenia. [place] Moderate to large amount of retained stool in the colon with no evidence of bowel obstruction. Rectal prolapse. Other chronic findings as above. [place] Emmanuel, [facility] Incoming Radiant Results From [facility] - 02/27/2020 1:35 AM EDT EXAMINATION: CT [...] Rectal prolapse. Other chronic findings as above. [place] Bun/Cre Ratio NOT REPORTED [place] GFR >60 >60 mL/min [place] GFR Non- >60 >60 mL/min [place] Interpretation and review of laboratory results Abnormal [place] Differential Type NOT REPORTED [place] Erythrocyte distribution width (RBC) [Ratio] 13.6 % 11.5 - 14.9 % [place] Immature granulocytes (Bld) [#/Vol] NOT REPORTED [place] Interpretation and review of laboratory results Abnormal [place] MCHC (RBC) [Mass/Vol] 33.3 g/dL 31 - 37 g/dL [place] Platelet mean volume (Bld) [Entitic vol] 8.5 fL 6 - 12 fL [place] Segmented neutrophils/100 WBC (Bld) 88 % High 36 - 66 % [place] Segs Absolute 8.00 [place] WBC Morphology NOT REPORTED [place] Vital Signs Date Time Vital Sign Value Performing Clinician Facility 11-23-2021 12:45-0400 Body height 152.4 cm Jewel Rodriguez Other [facility] Other 11-23-2021 12:45-0400 Body mass index (BMI) [Ratio] 21.87 kg/m2 Jewel Rodriguez Other [facility] Other 11-23-2021 12:45-0400 Body weight 50.8 kg Jewel Rodriguez Other [facility] Other 09-26-2021 14:00-0400 Body height 152.4 cm Jewel Rodriguez Other [facility] Other 09-26-2021 14:00-0400 Body mass index (BMI) [Ratio] 21.87 kg/m2 Jewel Rodriguez Other [facility] Other 09-26-2021 14:00-0400 Body weight 50.8 kg Jewel Rodriguez Other [facility] Other 09-26-2021 14:00-0400 Diastolic blood pressure 64 mm[Hg] Jewel Rodriguez Other [facility] Other 09-26-2021 14:00-0400 Systolic blood pressure 118 mm[Hg] Jewel Rodriguez Other [facility] Other 03-24-2020 08:24-0500 Body Temperature 97.81 [degF] Abed [facility] [place] 03-24-2020 08:24-0500 BP Diastolic 87 mm[Hg] Abed [facility] [place] [facility] [place] 03-24-2020 08:24-0500 BP Systolic 132 mm[Hg] Abed [facility] [place] 03-24-2020 08:24-0500 Pulse (Heart Rate) 97 /min [facility]bed [facility] [place] 03-24-2020 08:24-0500 Pulse Oximetry 96 % Abed H[facility] [place] 03-24-2020 08:24-0500 Respiratory Rate 18 /min Abed Hetal [facility] [place] 03-23-2020 10:58-0500 BMI (Body Mass Index) 24.41 kg/m2 [facility], [place] 03-23-2020 10:58-0500 Body weight 56.7 kg [facility] , [place] 03-23-2020 10:58-0500 Height 152.4 cm [facility] , [place] 02-28-2020 07:37-0400 Body Temperature 98.2 [degF] Carlos Manuel [facility] [place] 02-28-2020 07:37-0400 BP Diastolic 67 mm[Hg] Carlos Manuel Leo [facility] , [place] 02-28-2020 07:37-0400 BP Systolic 165 mm[Hg] Carlos Manuel [facility] [facility] , [place] 02-28-2020 07:37-0400 Pulse (Heart Rate) 73 /min Carlos Manuel Mccarthy [facility], [place] 02-28-2020 07:37-0400 Pulse Oximetry 97 % [facility] [place] 02-28-2020 07:37-0400 Respiratory Rate 16 /min Carlos Manuel Mccarthy [facility], [place] 02-28-2020 05:43-0400 BMI (Body Mass Index) 25.9 kg/m2 [facility] [place] 02-28-2020 05:43-0400 Body weight 60.15 kg [facility] [place] 02-27-2020 06:15-0400 Height 152.4 cm [facility] [place] 02-27-2020 04:38-0400 Body Temperature 98.71 [degF] Caridad Pringle [facility], [place] 02-27-2020 04:38-0400 BP Diastolic 81 mm[Hg] [facility] [place] 02-27-2020 04:38-0400 BP Systolic 180 mm[Hg] [facility] [place] 02-27-2020 04:38-0400 Pulse (Heart Rate) 76 /min Caridad Pringle [facility], [place] 02-27-2020 04:38-0400 Pulse Oximetry 95 % Caridad Pringle [facility] , [place] 02-27-2020 04:38-0400 Respiratory Rate 17 /min [facility] [place] Encounters Encounter Date Encounter Type Care Provider Facility Start: 06-30-2023 Refill Milvia Boogiemarysederick PEST CONTROL CHEMICAL TECHNICIAN Work Phone: [facility] Comment on above: Other chronic pain ( Primary Dx) Start: 06-28-2023 Bamboo flowsheet Milvia Boogiebal PEST CONTROL CHEMICAL TECHNICIAN Work Phone: [facility] Start: 06-28-2023 Bamboo flowsheet Milvia Boogiebal PEST CONTROL CHEMICAL TECHNICIAN Work Phone: [facility] Start: 06-28-2023 Patient encounter procedure Milvia Boogiebal PEST CONTROL CHEMICAL TECHNICIAN Work Phone: [facility] Start: 06-28-2023 End: 06-28-2023 ambulatory MILVIA BOOGIEBAL Not Available Start: 09-26-2022 End: 09-26-2022 ambulatory MANAGER ECONOMIC MILVIA PENNY Facility:[facility]1 Start: 09-14-2022 End: 09-15-2022 ambulatory MANAGER ECONOMIC MILVIA NESHADalilaBAL Facility:[facility]1 Start: 06-13-2022 End: 06-14-[address] TAM PERDOMO . Facility:[facility] Start: 04-05-2022 Office outpatient vi sit 15 minutes Jewel Rodriguez [facility] Start: 04-05-2022 End: 04-05-2022 ambulatory NON STAFF [facility] Work Phone: Start: 04-05-2022 End: 04-05-2022 Patient encounter procedure [facility] Start: 03-16-2022 End: 03-17-[address] TAM PERDOMO . Facility:[facility]1 Start: 01-04-2022 Office outpatient vi sit 15 minutes Jewel Rodriguez [facility] Start: 01-04-2022 End: 01-04-2022 ambulatory Jewel Rodriguez [facility] Other Start: 01-04-2022 End: 01-04-2022 Patient encounter procedure [facility] Start: 12-14-2021 End: 12-15-[address] TAM PERDOMO . Facility: Start: 11-23-2021 Postop follow up vis it related to original px Jewel Rodriguez [facility] Start: 11-23-2021 End: 11-23-2021 ambulatory [facility] Other Start: 11-23-2021 End: 11-23-2021 Patient encounter procedure [facility] Start: 10-26-2021 Postop follow up vis it related to original px Jewel Rodriguez [facility] Start: 10-26-2021 End: 10-26-2021 ambulatory [facility] Other Start: 10-26-2021 End: 10-26-2021 Patient encounter procedure [facility] Start: 09-26-2021 End: 09-30-2021 Evaluation and management of inpatient NON STAFF Facility:[facility] Start: 09-26-2021 End: 09-26-2021 ambulatory [facility] Other Start: 09-26-2021 Encounter for other preprocedural examination Jewel Rodriguez [facility] Start: 09-26-2021 Office outpatient ne w 45 minutes Jewel Rodriguez [facility] Start: 03-23-2020 End: 03-24-2020 Patient encounter procedure MOHSEN JONES [facility] Start: 03-23-2020 End: 03-24-2020 Subsequent hospital visit by physician Verenice Phipps Phone: [facility] Med Surg Comment on above: Post-op pain (Primar y Dx) Start: 03-19-2020 End: 03-24-2020 Patient encounter procedure SELMA MIRANDA [facility] Start: 03-19-2020 End: 03-23-2020 Subsequent hospital visit by physician [facility] Kirtid19 Pat Screening Schedule [facility] Pre-Admit Testing Start: 02-27-2020 End: 02-28-2020 Evaluation and management of inpatient COLE MENENDEZ [facility] Start: 02-27-2020 End: 02-28-2020 Evaluation and management of inpatient Carlos Manuel Leo Work Phone: [facility] Start: 02-27-2020 End: 02-27-2020 Emergency department patient visit MOHSEN JONES [facility] Start: 02-26-2020 End: 02-27-2020 Emergency department patient visit Caridad Pringle Work Phone: [facility] ED Procedures Date Procedure Procedure Detail [...] now? N Result Comment: PERF ORMED BY: [facility] [address] [place] [address] PATHOLOGIST VP [employer] JOESPH ZIEGLER M.D. Start: 03-24-2020 DISCHARGE PATIENT [...] COLE MENENDEZ Start: 03-23-2020 TRANSFER PATIENT COLE MENENDEZ Start: 03-23-2020 Level iv surg pathol ogy gross&microscopic exam COLE MENENDEZ Start: 03-23-2020 Ecg routine ecg w/le ast 12 lds w/i&r COLE MENENDEZ Start: 03-23-2020 EKG REPORT COLE MENENDEZ Start: 03-23-2020 End: 03-23-2020 Unlisted procedure rectum Abed E Hetal Work Phone: Start: 03-23-2020 Ecg routine ecg w/le ast 12 lds w/i&r Vitaliy W Say Work Phone: Start: 03-23-2020 EKG REPORT Hpf [...] Blood count complete auto&auto difrntl wbc Vicky D Delgrosso Work Phone: Start: 02-28-2020 [...] E MENENDEZ Start: 02-27-2020 IP CONSULT TO [facility] COLE MENENDEZ Start: 02-27-2020 MISCELLANEOUS NURSIN [...] Basic metabolic pane l calcium total Caridad Chowdhury [employer] Work Phone: Start: 02-27-2020 Blood count complete auto&auto difrntl wbc Caridad Pringle Work Phone: Plan of Treatment Date Care Activity Detail Author Start: 06-28-2024 Medicare Annual Wellness (AWV) Medicare Annual Wellness (AWV) [facility] Start: 01-03-2024 End: 01-03-2024 Patient encounter procedure 01/03/2024 1:00 PM EDT Office Visit [facility] [address] [place] [address] Milvia Haas NP [address] [place] [id number] [facility] Start: 11-18-2023 Influenza vaccination Influenza Vacc ine (#1) [facility] Comment on above: Postponed from 01/19 (Other Patient Reasons) Start: 01-19-2023 Influenza vaccination Influenza Vacc ine (#1) [facility] Start: 02-26-2020 Annual Wellness Visi t (AWV) Annual Wellness Visit (AWV) [place], [place] Start: 01-20-2020 Influenza vaccination Flu vaccine (# 1) [place], [place] Start: 2002 Pneumococcal 65+ yea rs Vaccine (1 of 1 - PPSV23) Pneumococcal 65+ years Vaccine (1 of 1 - PPSV23) [place], [place] Start: 1992 Screening for osteoporosis DEXA (modify frequency per FRAX score) [place], [place] Start: 1987 Shingles Vaccine (1 of 2) Shingles Vaccine (1 of 2) [place], [place] Start: 1956 DTaP/Tdap/Td vaccine (1 - Tdap) DTaP/Tdap/Td vaccine (1 - Tdap) [place], [place] Start: 1947 Lipid panel Lipid screen [place], [place] Start: 1937 TSH Qn TSH testing [place], [place] End: 03-18-2020 COVID-19 COVID-19 Lab Routine One Time for 1 Occurrences starting 03/18/2020 until 03/18/2020 [place] Comment on above: One Time for 1 Occur rences starting 03/18/2020 until 03/18/2020 Intermittent pulse oximetry Pulse Oximetry Spot Check Respiratory Care Routine As Needed until discontinued starting 02/27/2020 [facility] [place] Comment on above: As Needed until disc ontinued starting 02/27/2020 Oxygen therapy [[facility] Data Set] [place], [place] Comment on above: Daily until disconti nued starting 02/27/2020 Daily until disconti nued starting 03/23/2020 Surgical Pathology Surgical Path ology Lab Routine Release Upon Ordering for 1 Occurrences starting 03/23/2020 [facility] [place] Comment on above: Release Upon Orderin g for 1 Occurrences starting 03/23/2020 End: 03-24-2020 Surgical Pathology Surgical Pathology Lab Routine Once for 1 Occurrences starting 03/24/2020 until 03/24/2020 [facility] [place] Comment on above: Once for 1 Occurrenc es starting 03/24/2020 until 03/24/2020 End: 02-26-2020 Urinalysis Reflex to Culture Urinalysis Reflex to Culture Lab Routine One Time for 1 Occurrences starting 02/26/2020 until 02/26/2020 [place], [place] Comment on above: One Time for 1 Occur rences starting 02/26/2020 until 02/26/2020 Immunizations Immunization Date Immunization Notes Care Provider Samaria tatum 04-04-2019 influenza virus vacc ine, unspecified formulation Milvia Haas PEST CONTROL CHEMICAL TECHNICIAN Work Phone: [facility] 02-08-2017 influenza, high dose seasonal, preservative-free Milvia Aicdalilaholz PEST CONTROL CHEMICAL TECHNICIAN Work Phone: [facility] 03-08-2016 influenza, high dose seasonal, preservative-free Milvia Aichholz PEST CONTROL CHEMICAL TECHNICIAN Work Phone: [facility] 03-08-2016 pneumococcal polysaccharide vaccine, 23 valent Milvia Davisz PEST CONTROL CHEMICAL TECHNICIAN Work Phone: [facility] Healthcare Payers Date Payer Category Payer Medicare ANTHEM MEDICARE ADVANTAGE ANTH MEDICARE ADVANTAGE [id number] 2023-Present [address] [place] [address] [id number] 2021 Medicare [id number] 2021 Self-pay [id number] 1959 Medicare [id number] 1937 Unknown [id number] 2.16.840.1.207881.3.579.2.176 1937 Unknown [id number] 2.16.840.1.225950.3.579.2.176 1937 Unknown [id number] 2.16.840.1.997476.3.579.2.177 1937 Unknown [id number] 2.16.840.1.003242.3.579.2.177 1937 Unknown [id number] 2.16.840.1.957458.3.579.2.593 1937 Unknown [id number] 2.16.840.1.573832.3.579.2.593 1937 Unknown [id number] 2.16.840.1.336330.3.579.2.593 1937 Unknown [id number] 2.16.840.1.840049.3.579.2.593 1937 Unknown [id number] 2.16.840.1.439202.3.579.2.593 1937 Unknown [id number] 2.16.840.1.994464.3.579.2.125 9 Unknown [id number] 2.16.840.1.907892.3.579.2.531 Unknown [id number] 2.16.840.1.473351.3.579.2.531 Unknown [id number] 2.16.840.1.636191.3.579.2.531 Unknown [id number] 2.16.840.1.356262.3.579.2.531 Unknown [id number] 2.840.1.347705.3.579.2.531 Unknown [id number] 2..840.1.522341.3.579.2.531 Social History Date Type Detail Facility Start: 02-26-2020 End: 06-17-2023 Tobacco smoking status NHIS Never smoker [facility] Start: 02-26-2020 End: 06-28-2023 Alcohol intake Ex-drinker (finding) [employer] [facility] Start: 1935 [facility] Exposure to SARS-CoV -2 (event) Not sure [employer] Start: 03-23-2020 End: 03-24-2020 Tobacco use and exposure Never used [employer] Start: 06-17-2023 End: 06-28-2023 Sex Assigned At [facility] Start: 1935 Sex Assigned At Female F [facility] Start: 06-17-2023 End: 06-28-2023 History of Social [...] Only a little [facility] (I/We) worried wheth er (my/our) food would run out before (I/we) got money to buy more. Never true [facility] Medical Equipment Procedure Code Equipment Code Equipment Origin al Text Equipment Identifier Dates Open reduction and internal fixation of fracture of humerus Orthopaedic bone screw, non-bioabsorbable, non-sterile ()[id number] FDA Start: 09-27-2021 Open reduction and internal fixation of fracture of humerus Orthopaedic bone screw, non-bioabsorbable, non-sterile ()[id number] FDA Start: 09-27-2021 Open reduction and internal fixation of fracture of humerus Orthopaedic bone screw, non-bioabsorbable, non-sterile ()[id number] FDA Start: 09-27-2021 Open reduction and internal fixation of fracture of humerus Orthopaedic bone screw, non-bioabsorbable, non-sterile ()[id number] FDA Start: 09-27-2021 Open reduction and internal fixation of fracture of humerus Orthopaedic bone screw, non-bioabsorbable, non-sterile ()[id number] FDA Start: 09-27-2021 Open reduction and internal fixation of fracture of humerus Orthopaedic bone screw, non-bioabsorbable, non-sterile ()[id number] FDA Start: 09-27-2021 Open reduction and internal fixation of fracture of humerus Orthopaedic fixation plate, non-bioabsorbable, sterile ()[id number] FDA Start: 09-27-2021 Open reduction and internal fixation of fracture of humerus Orthopaedic fixation plate, non-bioabsorbable, sterile ()[id number] FDA Start: 09-27-2021 Open reduction and internal fixation of fracture of humerus Orthopaedic bone screw, non-bioabsorbable, non-sterile ()[id number] FDA Start: 09-27-2021 Open reduction and internal fixation of fracture of humerus Orthopaedic bone screw, non-bioabsorbable, non-sterile ()[id number] FDA Start: 09-27-2021 Open reduction and internal fixation of fracture of humerus Orthopaedic bone screw, non-bioabsorbable, non-sterile ()[id number] FDA Start: 09-27-2021 Open reduction and internal fixation of fracture of humerus Orthopaedic bone screw, non-bioabsorbable, non-sterile ()[id number] [facility] Start: 09-27-2021 Clinical Notes 09-26-2021 to 06-13-2022 [...] understands and would like to maintain. [facility] 04-05-2022 Evaluation note Encounter Date Diagnosis Assessment Notes [...] Other specified postprocedural states (ICD-10 - Z98.890) [facility] Other 10-27-2022 NoteCONSULTATION CONSULTATION DATE: 03/16/2022 HISTORY [...] in three months' time unless otherwise indicated.[id number] Evaluation note* Encounter Date Diagnosis Assessment Notes [...] Other specified postprocedural states (ICD-10 - Z98.890) [facility] Other 07-27-2022 NoteCONSULTATION CONSULTATION DATE: 12/14/2021 HISTORY [...] months' time unless otherwise indicated. Patient agrees.[facility] [id number] Evaluation note* Encounter Date Diagnosis Assessment Notes [...] Other specified postprocedural states (ICD-10 - Z98.890) [facility] Other 06-08-2022 Evaluation note* Encounter Date Diagnosis [...] of Neosporin to incision to help dryness. [place] removed today under sterile conditions. Patient tolerated [...] as documented in the electronic medical record. [facility] Other 05-09-2022 Evaluation note* Encounter Date Diagnosis [...] in office today. Prior medical notes from [place] [facility] Dr. Alvarez and history have been [...] poor healing. 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 I have [...] R42) Patient had CT scan performed at [facility] which was negative but has had ongoing [...] as documented in the electronic medical record. [employer] Other Evaluation noteNo assessment information available [facility] Work Phone: Evaluation note* Diagnosis Other chronic pain- Primary documented in this encounter [facility] N[facility]ative - Reported* Type Description Date Medical History arthritis Medical History osteoporosis Medical History hypothyroidism Medical History ovarian cancer Surgical History back surgery Surgical History hysterectomy Hospitalization History see above [facility] Other History general Narrative - Reported* Type Description Date Medical History arthritis Medical History osteoporosis Medical History hypothyroidism Medical History ovarian cancer Surgical History back surgery Surgical History hysterectomy Surgical History ORIF right humeral shaft fractu re 09/27/2021 Hospitalization History see above [facility] Other Discharge Instructions * Discharge Instr - [...] most local grocery stores, pharmacies, and chain [employer]-stores. ? If you have any questions about your diet or nutrition, call the hospital and ask for the dietitian. No restrictions * Additional Instructions* Dallas Briseno RN - 02/28/2020 Follow-up with colorectal surgery as instructed No changes to medications Per Dr. Hetal take Maribel lax and stool softener daily Dr. Laureano's office will call on Sunday to schedule for Rectal Prolapse surgery on Sunday or * Attachments The following attachments cannot be sent through Care Everywhere. * Colonoscopy: Pre-op ([place] Zealander) * Rectal Prolapse ([place] Zealander) documented in this encounter* Discharge Instr - [...] directive for healthcare treatment Durable power of gum sprayer for health care No, copy requested from family Adult Children 03/23/20 1103 Yes, patient has an advance directive for healthcare treatment Durable power of gum sprayer for health care;Living will No, copy requested from family Adult Children Admitting Physician: Verenice Laureano MD PCP: Mohsen Jones MD Discharging Nurse: Discharging Hospital Unit/Room#: Discharging Unit Phone Number: Emergency Contact: Extended Emergency Contact Information Primary Emergency Contact: EDER DÍAZ Relation: Spouse Preferred language: [place]alander Secondary Emergency Contact: CHARLES ASHLEY Relation: Other Preferred language: [place] Past Surgical History: Past Surgical History: Procedure Laterality Date CHOLECYSTECTOMY HERNIA REPAIR HYSTERECTOMY RECTAL PROLAPSE REPAIR N/A 03/23/2020 COLONOSCOPY WITH PERIANAL RESECTION AND RECTAL PROLAPSE REPAIR performed by Verenice Laureano MD at [facility] OR REFRACTIVE SURGERY Immunization History: There is [...] MENTAL STATUS:} IV Access: { VIKTORIYA IV ACCESS:848916412} Nursing Mobility/ADLs: Walking {CHP DME ADLs:871532044} Transfer {CHP DME ADLs:892005932} Bathing {CHP DME ADLs:853183759} Dressing {CHP DME ADLs:032507845} Toileting {CHP DME ADLs:381493999} Feeding {CHP DME ADLs:940585621} Rehab Rn {CHP DME ADLs:996619346} Med Delivery { VIKTORIYA MED Delivery:737432708} Wound Care Documentation and Therapy: Elimination: Continence: Bowel: {YES / NO:} Bladder: {YES / NO:} Urinary Catheter: {Urinary Catheter:068747505} Colostomy/Ileostomy/Ileal Conduit: {YES / NO:} Date of Last BM: Intake/Output Summary (Last 24 hours) at 03/24/2020 1002 Last data filed at 03/24/2020 0731 Gross per 24 hour Intake 1200 ml Output 550 ml Net 650 ml I/O last 3 completed shifts: In: 1200 [P.O.:400; I.V.:800] Out: 450 [Urine:450] Safety Concerns: { VIKTORIYA Safety Concerns:798588642} Impairments/Disabilities: { VIKTORIYA Impairments/Disabilities:628586366} Nutrition Therapy: Current Nutrition Therapy: { VIKTORIYA Diet List:905291284} Routes of Feeding: {CHP DME Other Feedings:650161559} Liquids: {Colorectal Surgeon liquid thickness:36421} Daily Fluid Restriction: {CHP DME Yes amt example:600654539} Last Modified Barium Swallow with Video (Video Swallowing Test): {Done Not Done Date:} Treatments at the Time of Hospital Discharge: Respiratory Treatments: Oxygen Therapy: {Therapy; copd oxygen:31796} Ventilator: {[facility] Vent List:974918429} Rehab Therapies: {THERAPEUTIC INTERVENTION:3299690801} Weight Bearing Status/Restrictions: {[facility] Weight Bearin} Other Medical Equipment (for information only, NOT a DME order): {EQUIPMENT:865981799} Other Treatments: Patient's personal belongings (please select all that are sent with patient): {[facility] DME Belongings:915076094} RN SIGNATURE: {Esignature:975552799} CASE MANAGEMENT/SOCIAL WORK SECTION Inpatient Status Date: Readmission Risk Assessment Score: Readmission Risk Risk of Unplanned Readmission: 0 Discharging to Facility/ Agency Name: Address: Phone: Fax: Dialysis Facility (if applicable) Name: Address: Dialysis Schedule: Phone: Fax: Funeral Assistant/Accounting Lecturer signature: {Esignature:667732425} PHYSICIAN SECTION Prognosis: {Prognosis:2543472996} Condition at Discharge: { Patient Condition:925194903} Rehab Potential (if transferring to Rehab): {Prognosis:6088664026} Recommended Labs or Other Treatments After Discharge: Physician Certification: I certify the above information and transfer of Izabela Díaz is necessary for the continuing treatment of the diagnosis listed and that she requires {Admit to Appropriate Level of Care:36373} for {GREATER/LESS:531992134} 30 days. Update Admission H&P: {CHP DME Changes in HandP:197585902} PHYSICIAN SIGNATURE: {Esignature:576458653} * Additional Instructions* Damaso Vasquez DO - [...] sent through Care Everywhere. * Rectal Prolapse ([place] Zealander) documented in this encounter History of Present Illness * Dallas Briseno RN - 02/28/2020 3:50 PM EDT Structural Iron Erector reviewed discharge instructions with patient. Patient verbalize understanding signature obtained. Patient discharge with belongings no script * Dallas Briseno RN - 02/28/2020 12:[address] Haskins notified of consult reviewed urine culture and current tx no new orders at this time * Cole Menendez DO - 02/28/2020 12:44 PM EDT [facility] Office: [phone] Juan Ramon Toledo DO, Grzegorz Jennings DO, Sixto Weber DO, Carmelo Alejo, DO, Radha De Dios MD, Juliana Ambriz MD, Constantino Ahuja MD, Robina San MD, Pawel Guzman MD, Aneta Champion MD, MD Ronel, Rodney Grimm MD, Aracelis Traore MD, Favian Degroot DO, Eva Alexander MD, Mando Perdomo MD, Cole Menendez DO, Matt Jordan MD, Nagi Gilmore DO, Ron Butts MD, MD Fredo, Flaquita Pizano MANAGER ECONOMIC, Vicky Lau MANAGER ECONOMIC, Izzy Clay CNP, Mary Martinez, PLASTIC PARTS FABRICATOR TRIMMER,Raoul Jimenez, MANAGER ECONOMIC, Susie Chapman, MANAGER ECONOMIC, Krystle Lino, MANAGER ECONOMIC, Lindsey Damon, MANAGER ECONOMIC, Osmin Stephens, MANAGER ECONOMIC, Patrick Ag PA-C, Pat Carrero, ABUNDIO, Elvie Farmer, MANAGER ECONOMIC, Rosalinda Irwin, MANAGER ECONOMIC, Verena Washington, SATINDER, Joie Kaur CNP, Nora Beckman, SATINDER [facility] IN-PATIENT SERVICE [facility] Progress Note 02/28/2020 12:44 PM Name: Izabela Díaz Acct: [id number] Room: Day: 1 Admit Date: 02/27/2020 6:10 AM [...] results found for: POCPH, PHART, PH, POCPCO2, PMK0QDQ, PCO2, POCPO2, PO2ART, PO2, POCHCO3, MGJ4CTU, HCO3, NBEA, PBEA, BEART, BE, THGBART, THB, NMV0CDW, UPCY2RWL, S4NCAEFO, O2SAT, FIO2 No results found for: SPECIAL [...] 02/28/2020 1:05 AM EDT Pt transferred to [facility], room 2007, from [facility]. Alert & oriented X4. * Roxann Reynolds - 02/27/2020 12:25 PM EDT Transitions of Care Pharmacy Service Medication Review The patient's list of current home medications has been reviewed. Source(s) of information: patient, Riky Andres ([place], [place]) Based on information provided by the [...] the physician about any discrepancies. Roxann Reynolds, environmental laboratory technician Transitions of Care Pharmacy Service Prior to [...] agree with the documentation provided by the [facility] environmental laboratory technician. To be addressed by a physician/nurse practitioner: home med list is ready for provider review/reorder as appropriate Please feel free to call me with any questions about this encounter. Thank you. Urszula Gasca, Elly Pharmacy Medication Accuracy Review Service * Josseline Cardona RN - 02/27/2020 6:36 AM EDT Pt arrived to floor via stretcher from [place] and was transfered to bed. Vitals taken. [...] Lewis RN - 03/24/2020 7:30 AM EST administration vice president was in to see the pt. Plan [...] History Records Found Hospital Course * Damaso Vasquez DO - 03/24/2020 7:11 AM EST Colorectal Surgery [...] given to patient upon discharge. Discharge Medications: Izabela Díaz Home Medication Instructions REECE:[id number] Printed on:03/24/20 0711 Medication Information albuterol sulfate [...] Contact Diagnoses Rectal prolapse RECTAL PROLAPSE Procedures HI RECTUM SURGERY PROCEDURE UNLISTED COLONOSCOPY WITH PERIANAL RESECTION AND RECTAL PROLAPSE REPAIR Verenice Laureano MD [address] [place] [address] [facility] Reason Comments Med Refill INFORMATION SOURCE (unrecogn ized section and content) DATE CREATED AUTHOR 03/24/2020 [facility] DATE CREATED AUTHOR AUTHOR'S ORGANIZ ATION 03/25/2020 [facility] DATE CREATED AUTHOR AUTHOR'S ORGANIZ ATION 06/24/2022 [facility] DATE CREATED AUTHOR AUTHOR'S ORGANIZ ATION 09/29/2022 [facility] DATE CREATED AUTHOR AUTHOR'S ORGANIZ ATION 06/29/2023 [facility] EPIC Care Teams (unrecognized sec tion and content) Team Status: Inactive Member Role Status Dates NON STAFF Primary Care Provider Active Jewel Rodriguez DO Attending Provider Active Team Status: Active Member Role Status Dates NON STAFF Primary Care Provider Active Physical Trainer Relationship Specialty Start Date End Date Mohsen Jones MD [address] [place] [address] PCP - General Family Medicine 06/06/23 Milvia Haas NP [address] [place] [address] Nurse Practitioner Family Medicine 06/06/23 Physical Trainer Relationship Specialty Start Date End Date Mohsen Jones MD [address] [place] [id number] PCP - General Family Medicine 06/06/23 Milvia Haas NP [address] [place] [id number] Nurse Practitioner Family Medicine 06/06/23 Goals (unrecognized [...] BE BASED ON THE PRIMARY CLINICAL RECORDS. [employer] provides no warranty or guarantee of the accuracy or completeness of information in this document.
[2023-08-24 12:48] LABS: Basophils Absolute Auto 0.1 10^3/uL (0.0-0.1); Basophils Percent Auto 0.7 % (0.2-2.0); Eosinophils Absolute Auto 0.1 10^3/uL (0.0-0.7); Eosinophils Percent Auto 1.9 % (0.9-7.0); Hematocrit 37.1 % (36.0-48.0); Hemoglobin 11.5 g/dL (12.0-16.0); Immature Granulocytes Abs Auto 0.03 10^3/uL (0.00-0.03); Immature Granulocytes Pct Auto 0.4 % (0.0-0.5); Mean Corpuscular Hemoglobin 29.7 pg (26.7-34.0); Mean Corpuscular Volume 95.9 fL (81.0-99.0); Mean Platelet Volume 11.1 fL (9.5-13.5); Monocytes Absolute Auto 0.4 10^3/uL (0.3-0.8); Monocytes Percent Auto 5.1 % (1.7-12.0); Neutrophils Absolute Auto 5.5 10^3/uL (1.4-6.5); Neutrophils Percent Auto 77.9 % (43.0-75.0); Platelet Count 207 10^3/uL (150-450); Red Blood Count 3.87 10^6/uL (4.20-5.40); Red Cell Distribution Width 13.3 % (11.0-15.0)
[2023-08-24 13:55] LABS: Alanine Aminotransferase 17 U/L (14-59); Albumin Globulin Ratio 1.1; Albumin Level 3.7 g/dL (3.4-5.0); Alkaline Phosphatase 111 U/L (46-116); Anion Gap 10.5; Aspartate Amino Transferase 20 U/L (15-37); BUN Creatinine Ratio 19.2; Bilirubin Total 0.3 mg/dL (0.2-1.0); Calcium 9.7 mg/dL (8.5-10.1); Carbon Dioxide 31.5 mmol/L (21.0-32.0); Chloride 105 mmol/L (98-107); Chol HDL Ratio 1.9; Cholesterol 165 mg/dL (<=200); Estimated GFR (African America >60 (>=60); Estimated GFR (Non-African Ame >60 (>=60); Globulin 3.4 g/dL; Glucose 91 mg/dL (74-106); HDL Cholesterol 88 mg/dL (40-60); Sodium 143 mmol/L (136-145); Thyroid Stimulating Hormone 0.351 uIU/mL (0.358-3.740); Total Protein 7.1 g/dL (6.4-8.2); Triglycerides 51 mg/dL (<=150); VLDL CHOLESTEROL 10.2 mg/dL
[2023-08-24 14:08] LABS: Free T4 1.04 ng/dL (0.76-1.46)
== END 2023-08-24 12:20 | disposition home or self-care (01) ==
PROVIDERS: PCP Nurse Practitioner; Visit Provider Nurse Practitioner
DX: E03.9 Hypothyroidism, unspecified (principal); E55.9 Vitamin D deficiency, unspecified; E78.5 Hyperlipidemia, unspecified
CPT/HCPCS: 36415; 80053; 80061; 82306; 84439; 84443; 85025

== ENCOUNTER 2023-10-04 11:42 | Outpatient (OUT) | payer MEDICARE, SELFPAY ==
--- NOTE | 2023-10-04 11:55 | PM.CN ---
Consult Note: HPI Data of Consult Patient: known to practice within the last 3 years Requesting Physician: Pau Salazar NP Primary Care Provider: Milvia Haas NP Consult Narrative Reason for consult: f/u Narrative: Izabela Díaz a pleasant 87 year old female presents for evaluation and management of chronic back pain. Today pain 10/10 with activity and weather. Pain increased with all activity and improved with sitting or lying. Patient reports mild functional improvement and pain relief with current medication regimen. Denies numbness tingling or weakness. cc:: CC: Pau Salazar NP Review of Systems ROS Status of ROS 10 or more systems reviewed and unremarkable except as noted in history and below Musculoskeletal Reports: back pain and joint pain Meds Home Medications and Allergies Home Medications ?Medication ?Instructions ?Recorded ?Confirmed ?Type alendronate 70 mg tablet 70 mg PO QWEEK 10/19/22 10/19/22 History baclofen 10 mg tablet 10 mg PO QDAY 10/19/22 10/19/22 History calcium carbonate 500 mg PO QDAY 10/19/22 10/19/22 History cyanocobalamin (vitamin B-12) 1,000 mcg PO QDAY 10/19/22 10/19/22 History 1,000 mcg capsule gabapentin 300 mg capsule 300 mg PO BID 10/19/22 10/19/22 History levothyroxine 50 mcg tablet 50 mcg PO QDAY 10/19/22 10/19/22 History multivitamin 1 tab PO QDAY 10/19/22 10/19/22 History omeprazole 40 mg capsule,delayed 40 mg PO QDAY 10/19/22 10/19/22 History release oxycodone 5 mg tablet 5 mg PO TID 10/19/22 10/19/22 History pravastatin 20 mg tablet 20 mg PO QDAY 10/19/22 10/19/22 History oxycodone 5 mg tablet 5 mg PO TID PRN pain #90 tabs 01/17/23 Rx baclofen 10 mg tablet 10 mg PO DAILY #30 tabs 03/08/23 Rx oxycodone 5 mg capsule 5 mg PO QID PRN pain #105 caps 03/08/23 Rx oxycodone 5 mg capsule 5 mg PO TID PRN pain #90 caps 03/08/23 Rx oxycodone 5 mg tablet 5 mg PO TID PRN pain #90 tabs 04/19/23 Rx oxycodone 5 mg tablet 5 mg PO TID PRN pain #90 tabs 05/31/23 Rx oxycodone 5 mg tablet 5 mg PO TID PRN pain #90 tabs 07/12/23 Rx oxycodone 5 mg tablet 5 mg PO TID PRN pain #90 tabs 08/23/23 Rx Allergies Allergy/AdvReac Type Severity Reaction Status Date / Time Penicillins Allergy Mild Hives Verified 10/19/22 13:17 Exam Constitutional Documenting provider has reviewed patient's vital signs: yes Common normals: no apparent distress, oriented x3, healthy appearing, alert and well nourished General appearance: cooperative HENMT Common normals: normocephalic, hearing grossly normal bilaterally and moist oral mucous membranes Head and scalp: normocephalic Eye Common normals: PERRL Pupil: PERRL Neck & C-Spine Common normals: full ROM General: normal visual inspection Chest Common normals: inspection of chest normal Respiratory Common normals: normal respiratory effort, no retractions and no use of accessory muscles Back & Pelvis Thoracic spine/upper back: ROM limited, pain with ROM and kyphosis present Lumbar spine/lower back: ROM limited and pain with ROM Extremity Common normals: normal to inspection and full ROM Neuro Common normals: oriented x3, CN's II-XII intact bilaterally, moves all extremities, no focal motor deficits, no sensory deficits noted and deep tendon reflexes 2+ bilaterally Sensorium/orientation: alert Gait (neuro): antalgic Motor exam: strength 5/5 throughout and no movement abnormalities noted Psych Common normals: mental status grossly normal, thought process normal, cooperative, affect normal, speech normal and activity/motor behavior normal Speech: normal speech Thought process: normal thought process Results Additional Findings Additional findings: If on a controlled substance or opioids, I have checked an [place] report on this patient and there are no aberrancies noted in the prescribing history.??If on a controlled substance or opioid a drug screen was completed and reviewed within the last year, and if there has not been a drug screen completed we ordered one today to monitor higher risk, state monitored pain medication use. As part of providing excellent, safe, comprehensive care, the following was completed at our patient's visit: 1. A medication reconciliation and review to ensure accurate knowledge of current/active medications, including asking our patients to inform us about any [id number] medications or herbal remedies/nutritional supplements/alternative remedies. 2. A review to specifically ensure our patients have had annual screening for screening for depression, screening for tobacco use, and screening for unhealthy alcohol use. For concerning screenings had a discussion with the patient, provided patient education, and recommended follow-up with primary care provider when appropriate. If patient noted with a risk of falling, they received education on strength, gait, and balance training to prevent future risk of falling. Assessment and Plan Assessment and Plan (1) Lumbar spondylosis: (2) Low back pain: (3) Degenerative disc disease: (4) Muscle spasm: (5) Chronic prescription opiate use: Assessment and Plan: I feel these medications are improving the patient's quality of life and allow them to tolerate activities of daily living as well as participate in recreational activity.? The patient does not report intolerable side effects. The patient is NOT opioid naive and non-pharmacologic and non-opioid treatment has failed to significantly relieve the patient's pain and improve functionality. The patient has a diagnosis that is related to a somatic or visceral pain etiology. ? ?? I reviewed with the patient the potential risks and side effects with the use of? opioid medications including but not limited to respiratory depression,? sedation, and even . I verified the patient has access to naloxone should? these effects occur. I advised the patient to avoid the use of any other? sedation substances including alcohol, THC, and benzodiazepines while? taking opioid medications due to the risk of compounding side effects and? detrimental outcomes. I reviewed the [employer], pain treatment agreement, urine? drug screen, and opioid start talking forms. The patient was advised to let? their family know they had Naloxone in case they would need to administer? the medication.? ?? Plan stop oxycodone, start butrans 5mcg/hr patch q7days. risks vs benefits discussed declining additional injection therapy and updating imaging continue baclofen 10mg HS PRN narcan previously discussed and declined, pt educated on continue bracing
== END 2023-10-04 11:43 | disposition home or self-care (01) ==
PROVIDERS: PCP Nurse Practitioner; Visit Provider Nurse Practitioner
DX: M47.816 Spondylosis without myelopathy or radiculopathy, lumbar region (principal); M54.50 Low back pain, unspecified; M50.30 Other cervical disc degeneration, unspecified cervical region; M62.838 Other muscle spasm; Z79.891 Long term (current) use of opiate analgesic
CPT/HCPCS: G0463